=== PATIENT | female | born 1965 | race African-American/Black ===

== ENCOUNTER 2018-01-30 18:56 | Emergency (ER) | payer BC ==
[2018-01-30] MEDS ORDERED: ACETAMINOPHEN 500 MG TAB ONE (19:54)
--- NOTE | 2018-01-30 20:06 | RAD REPORT ---
EXAM DESCRIPTION: Ramsey Rush (2 Views)01/30/2018 8:00 pm CLINICAL HISTORY: Cough COMPARISON: None FINDINGS: The lungs appear clear of acute infiltrate. The heart is normal size IMPRESSION: No acute abnormalities displayed
[2018-01-30 20:21] LABS: Urine Blood NEGATIVE (NEG); Urine Glucose NEGATIVE (NEG); Urine Protein NEGATIVE (NEG); Urine pH 7.5 (5.0-7.0)
--- NOTE | 2018-01-30 20:43 | ER ---
Nurse's Notes [facility] Name: Guadalupe Chapin Age: 52 yrs Sex: Female : 1965 Arrival Date: 01/30/2018 Time: 19:00 Bed 6 Private MD: None, None Diagnosis: Fever presenting with conditions classified elsewhere;Bronchitis, not specified as acute or chronic Presentation: 01/30 19:07 Presenting complaint: Patient states: She has been being treated for bronchitis since aj1 Monday and has been taking antibiotics, then today she started to have pain all over. Patient states that she has not tried taking Tylenol or Motrin today. Reports her fever had gone away, but suddenly came back again today. Transition of care: patient was not received from another setting of care. Onset of symptoms was January 30, 2018. Risk Assessment: Do you want to hurt yourself or someone else? Patient reports no desire to harm self or others. Initial Sepsis Screen: Does the patient meet any 2 criteria? HR > 90 bpm. Does the patient have a suspected source of infection? Yes: Productive cough/pneumonia. Care prior to arrival: None. 19:07 Method Of Arrival: Ambulatory 19:07 Acuity: DEVIN 4 aj1 Triage Assessment: 19:14 General: Appears uncomfortable, Behavior is cooperative, anxious, restless. Pain: aj1 Complains of pain in all over her entire body Pain currently is 8 out of 10 on a pain scale. EENT: Reports nasal congestion nasal discharge sore throat. Neuro: Level of Consciousness is awake, alert, obeys commands. Cardiovascular: Patient's skin is warm and dry. Respiratory: Reports cough that is productive, Airway is patent Respiratory effort is even, unlabored, Respiratory pattern is regular, symmetrical. GI: Patient currently denies diarrhea, nausea, vomiting. 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 - Social history:: Smoking status: Patient/guardian denies using tobacco. - Ebola Screening: : Patient denies travel to an Ebola-affected area in the 21 days before illness onset. Screenin:52 Tuberculosis screening: No symptoms or risk factors identified. ak1 19:54 Abuse screen: Denies threats or abuse. Denies injuries from another. Nutritional ak1 screening: No deficits noted. Fall Risk None identified. Assessment: 19:54 General: Appears uncomfortable, Behavior is cooperative, crying. Pain: Complains of ak1 pain in all over body aches. Neuro: No deficits noted. Cardiovascular: No deficits noted. Respiratory: Reports cough that is Breath sounds are coarse in right posterior lower lobe Parent/caregiver reports the patient having pain with respiration pt stated she was seen by her PCP in [facility] and started Levaquin today. GI: No signs and/or symptoms were reported involving the gastrointestinal system. : No signs and/or symptoms were reported regarding the genitourinary system. EENT: No signs and/or symptoms were reported regarding the EENT system. Derm: Reports fever. Musculoskeletal: Reports all over body aches. 21:04 Reassessment: Patient appears in no apparent distress at this time. No changes from ak1 previously documented assessment. Patient is alert, oriented x 3, equal unlabored respirations, skin warm/dry/pink. Patient states symptoms have improved. Vital Signs: 19:14 BP 162 / 101; Pulse 104; Resp 20; Temp 101.2; Pulse Ox 99% on R/A; Weight 102.06 kg aj1 (R); Height 5 ft. 5 in. (165.10 cm) (R); 19:53 BP 130 / 76; Pulse 96; Resp 20; Pulse Ox 99% on R/A; ak1 21:04 BP 105 / 51; Pulse 96; Resp 18; Temp 100.9(O); Pulse Ox 97% on R/A; Pain 6/10; ak1 19:14 Body Mass Index 37.44 (102.06 kg, 165.10 cm) aj1 ED Course: 19:00 Patient arrived in ED. sb2 19:01 None, None is Private Physician. sb2 19:13 Triage completed. aj1 19:14 Arm band placed on Patient placed in waiting room, Patient notified of wait time. aj1 19:52 Hayde Jacob, RN is Primary Nurse. ak1 19:54 Mimi Murray FNP-C is PHCP. snw 19:54 Tha Duval MD is Attending Physician. snw 19:56 Patient has correct armband on for positive identification. Bed in low position. Call ak1 light in reach. Side rails up X 1. Pulse ox on. NIBP on. 19:59 Chest Pa And Lat (2 Views) XRAY In Process Unspecified. EDMS 21:04 Awaiting transportation, Awaiting: pt waiting for to come pick her up. ak1 21:04 No provider procedures requiring assistance completed. Patient did not have IV access ak1 during this emergency room visit. Administered Medications: 19:53 Drug: Tylenol 1000 mg Route: PO; ak1 21:03 Follow up: Response: No adverse reaction ak1 21:03 Drug: fentaNYL (PF) 75 mcg Route: IM; Site: right gluteus; ak1 21:04 Follow up: Response: No adverse reaction ak1 Outcome: 20:42 Discharge ordered by . snw 21:05 Condition: stable ak1 21:05 Discharge instructions given to patient, Instructed on discharge instructions, follow up and referral plans. no drinking with medication, no driving heavy equipment, medication usage, Demonstrated understanding of instructions, follow-up care, medications, Prescriptions given X 1. 22:17 Discharged to home via wheelchair, with family. ak1 22:17 Patient left the ED. ak1 Signatures: Dispatcher [employer] Karie Sandoval, RN RN aj1 Mimi Murray, POLICE CRIME SCENE TECHNICIAN-C POLICE CRIME SCENE TECHNICIAN-Csnw Hayde Jacob RN RN ak1 Yoli Gates sb2
--- NOTE | 2018-01-30 20:43 | EDPHYS ---
Physician Documentation [facility] Name: Guadalupe Chapin Age: 52 yrs Sex: Female : 1965 Arrival Date: 01/30/2018 Time: 19:00 Bed 6 Private MD: None, None ED Physician Tha Duval HPI: 01/30 21:35 This 52 yrs old Black Female presents to ER via Ambulatory with complaints of Pain All snw Over. 21:35 Onset: The symptoms/episode began/occurred suddenly. Associated signs and symptoms: snw Pertinent positives: cough, fever, pain all over. Modifying factors: The patient symptoms are alleviated by nothing, the patient symptoms are aggravated by movement. The patient has not experienced similar symptoms in the past. The patient has been recently seen by a physician: the patient's primary care provider, with different complaint(s), pt with rheumatoid and osteo arthritis. dx recently with bronchitis. Pt began Levaquin today. Pt unaware she had fever on arrival. Taking Naproxen for arthritis, began Levaquin today for bronchitis. 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 - Social history:: Smoking status: Patient/guardian denies using tobacco. - Ebola Screening: : Patient denies travel to an Ebola-affected area in the 21 days before illness onset. ROS: 21:34 Constitutional: Negative for fever, chills, and weight loss, sudden onset of severe snw bone pain. Eyes: Negative for injury, pain, redness, and discharge. 21:34 ENT: Negative for injury, pain, and discharge, Neck: Negative for injury, pain, and swelling, Cardiovascular: Negative for chest pain, palpitations, and edema. 21:34 Abdomen/GI: Negative for abdominal pain, nausea, vomiting, diarrhea, and constipation, Back: Negative for injury and pain, : Negative for injury, bleeding, discharge, and swelling, MS/Extremity: Negative for injury and deformity, Skin: Negative for injury, rash, and discoloration, Neuro: Negative for headache, weakness, numbness, tingling, and seizure. 21:34 Constitutional: Positive for body aches, malaise, poor PO intake. 21:34 Respiratory: Positive for cough, with no reported sputum. Exam: 21:32 Constitutional: This is a well developed, well nourished patient who is awake, alert, snw and in no mild distress. Fever, chills, uncomfortable Head/Face: Normocephalic, atraumatic. Eyes: Pupils equal round and reactive to light, extra-ocular motions intact. Lids and lashes normal. Conjunctiva and sclera are non-icteric and not injected. Cornea within normal limits. Periorbital areas with no swelling, redness, or edema. ENT: Nares patent. No nasal discharge, no septal abnormalities noted. Tympanic membranes are normal and external auditory canals are clear. Oropharynx with no redness, swelling, or masses, exudates, or evidence of obstruction, uvula midline. Mucous membranes moist. Neck: Trachea midline, no thyromegaly or masses palpated, and no cervical lymphadenopathy. Supple, full range of motion without nuchal rigidity, or vertebral point tenderness. No Meningismus. Chest/axilla: Normal chest wall appearance and motion. Nontender with no deformity. No lesions are appreciated. Cardiovascular: Regular rate and rhythm with a normal S1 and S2. No gallops, murmurs, or rubs. Normal PMI, no JVD. No pulse deficits. Respiratory: Lungs have equal breath sounds bilaterally, clear to auscultation and percussion. No rales, rhonchi or wheezes noted. No increased work of breathing, no retractions or nasal flaring. Abdomen/GI: Soft, non-tender, with normal bowel sounds. No distension or tympany. No guarding or rebound. No evidence of tenderness throughout. Back: No spinal tenderness. No costovertebral tenderness. Full range of motion. Skin: Warm, dry with normal turgor. Normal color with no rashes, no lesions, and no evidence of cellulitis. Neuro: Awake and alert, GCS 15, oriented to person, place, time, and situation. Cranial nerves II-XII grossly intact. Motor strength 5/5 in all extremities. Sensory grossly intact. Cerebellar exam normal. Normal gait. Psych: Awake, alert, with orientation to person, place and time. Behavior, mood, and affect are within normal limits. 21:32 Musculoskeletal/extremity: Extremities: grossly normal except: tenderness everywhere, ROM: no acute changes, Circulation is intact in all extremities. Vital Signs: 19:14 BP 162 / 101; Pulse 104; Resp 20; Temp 101.2; Pulse Ox 99% on R/A; Weight 102.06 kg aj1 (R); Height 5 ft. 5 in. (165.10 cm) (R); 19:53 BP 130 / 76; Pulse 96; Resp 20; Pulse Ox 99% on R/A; ak1 21:04 BP 105 / 51; Pulse 96; Resp 18; Temp 100.9(O); Pulse Ox 97% on R/A; Pain 6/10; ak1 19:14 Body Mass Index 37.44 (102.06 kg, 165.10 cm) aj1 MDM: 19:55 Patient medically screened. snw 21:35 Data reviewed: vital signs, nurses notes. Data interpreted: Pulse oximetry: on room air snw is 97 %. Interpretation: normal. Counseling: I had a detailed discussion with the patient and/or guardian regarding: the historical points, exam findings, and any diagnostic results supporting the discharge/admit diagnosis, radiology results, the need for outpatient follow up, to return to the emergency department if symptoms worsen or persist or if there are any questions or concerns that arise at home. Special discussion: Based on the history and exam findings, there is no indication for further emergent testing or inpatient evaluation. I discussed with the patient/guardian the need to see the primary care provider for further evaluation of the symptoms. 21:38 ED course: Pt encouraged to continue Levaquin. snw 01/30 19:54 Order name: Urine Dipstick--Ancillary (enter results); Complete Time: 20:25 rg2 01/30 19:34 Order name: Chest Pa And Lat (2 Views) XRAY; Complete Time: 20:19 snw Administered Medications: 19:53 Drug: Tylenol 1000 mg Route: PO; ak1 21:03 Follow up: Response: No adverse reaction ak1 21:03 Drug: fentaNYL (PF) 75 mcg Route: IM; Site: right gluteus; ak1 21:04 Follow up: Response: No adverse reaction ak1 Disposition: 01/30/18 20:42 Discharged to Home. Impression: Fever presenting with conditions classified elsewhere, Bronchitis, not specified as acute or chronic. - Condition is Stable. - Discharge Instructions: Acute Bronchitis, Adult, Fever, Adult, Cool Mist Vaporizer, Acute Bronchitis, [id number], Rehydration, Adult. - Prescriptions for Tessalon Perles 100 mg Oral Capsule - take 1 capsule by ORAL route every 8 hours As needed; 15 capsule. - Medication Reconciliation Form, Thank You Letter, Antibiotic Education, Prescription Opioid Use, Work release form form. - Follow up: Private Physician; When: 1 - 2 days; Reason: Recheck today's complaints, Continuance of care, Re-evaluation by your physician. Follow up: Emergency Department; When: As needed; Reason: Worsening of condition. - Problem is new. - Symptoms have worsened. Addendum: 02/06/2018 04:43 Co-signature as Attending Physician, Tha Duval MD I agree with the assessment and t w4 plan of care. Attestation: The patient's history, exam findings, diagnostics, and a summary of any interventions or procedures was reviewed in detail with Mimi GARCIA. Signatures: Dispatcher [employer] EDMS Karie Martinez RN RN aj1 Mimi Murray FNP-C FNP-CsnHayde Walters RN RN ak1 Tha Duval MD MD tw4 Corrections: (The following items were deleted from the chart) 01/30 21:35 21:32 Constitutional: This is a well developed, well nourished patient who is awake, snw alert, and in no acute distress. Head/Face: Normocephalic, atraumatic. Eyes: Pupils equal round and reactive to light, extra-ocular motions intact. Lids and lashes normal. Conjunctiva and sclera are non-icteric and not injected. Cornea within normal limits. Periorbital areas with no swelling, redness, or edema. ENT: Nares patent. No nasal discharge, no septal abnormalities noted. Tympanic membranes are normal and external auditory canals are clear. Oropharynx with no redness, swelling, or masses, exudates, or evidence of obstruction, uvula midline. Mucous membranes moist. Neck: Trachea midline, no thyromegaly or masses palpated, and no cervical lymphadenopathy. Supple, full range of motion without nuchal rigidity, or vertebral point tenderness. No Meningismus. Chest/axilla: Normal chest wall appearance and motion. Nontender with no deformity. No lesions are appreciated. Cardiovascular: Regular rate and rhythm with a normal S1 and S2. No gallops, murmurs, or rubs. Normal PMI, no JVD. No pulse deficits. Respiratory: Lungs have equal breath sounds bilaterally, clear to auscultation and percussion. No rales, rhonchi or wheezes noted. No increased work of breathing, no retractions or nasal flaring. Abdomen/GI: Soft, non-tender, with normal bowel sounds. No distension or tympany. No guarding or rebound. No evidence of tenderness throughout. Back: No spinal tenderness. No costovertebral tenderness. Full range of motion. Skin: Warm, dry with normal turgor. Normal color with no rashes, no lesions, and no evidence of cellulitis. Neuro: Awake and alert, GCS 15, oriented to person, place, time, and situation. Cranial nerves II-XII grossly intact. Motor strength 5/5 in all extremities. Sensory grossly intact. Cerebellar exam normal. Normal gait. Psych: Awake, alert, with orientation to person, place and time. Behavior, mood, and affect are within normal limits. snw 22:17 20:42 01/30/2018 20:42 Discharged to Home. Impression: Fever presenting with conditions ak1 classified elsewhere; Bronchitis, not specified as acute or chronic. Condition is Stable. Forms are Medication Reconciliation Form, Thank You Letter, Antibiotic Education, Prescription Opioid Use. Follow up: Private Physician; When: 1 - 2 days; Reason: Recheck today's complaints, Continuance of care, Re-evaluation by your physician. Follow up: Emergency Department; When: As needed; Reason: Worsening of condition. Problem is new. Symptoms have worsened. snw
[2018-01-30] MEDS ORDERED: FENTANYL CITR 100 MCG/2 ML ONE (21:01)
== END 2018-01-30 22:17 | disposition home or self-care (01) ==
LOC: ER 18:56
DX: J40 Bronchitis, not specified as acute or chronic (principal); I10 Essential (primary) hypertension
CPT/HCPCS: 71046; 81003; 96372; 99284; J3010

== ENCOUNTER 2019-04-27 09:44 | Emergency (ER) | payer BC ==
[2019-04-27] MEDS ORDERED: KETOROLAC 30 MG/ML INJ ONE (10:04)
--- NOTE | 2019-04-27 10:52 | ER ---
Nurse's Notes [facility] Name: Guadalupe Chapin Age: 54 yrs Sex: Female : 1965 Arrival Date: 04/27/2019 Time: 09:46 Bed 15 Private MD: out of town, doctor Diagnosis: Pain in right shoulder;Adhesive capsulitis of right shoulder Presentation: 04/27 09:53 Presenting complaint: Patient states: i saluted twice yesterday and my RIGHT arm hurts tw2 bad today, i just feel like i lost my range of motion, i have RA. Transition of care: patient was not received from another setting of care. Onset of symptoms was April 27, 2019. Risk Assessment: Do you want to hurt yourself or someone else? Patient reports no desire to harm self or others. Initial Sepsis Screen: Does the patient meet any 2 criteria? No. Patient's initial sepsis screen is negative. Does the patient have a suspected source of infection? No. Patient's initial sepsis screen is negative. Care prior to arrival: None. 09:53 Method Of Arrival: Ambulatory tw2 09:53 Acuity: DEVIN 4 tw2 Triage Assessment: 09:54 General: Appears in no apparent distress. obese, well groomed, Behavior is calm, tw2 cooperative, appropriate for age. Pain: Complains of pain in RIGHT shoulder. EENT: No signs and/or symptoms were reported regarding the EENT system. Neuro: Level of Consciousness is awake, alert, obeys commands, Oriented to person, place, time, situation. Cardiovascular: Patient's skin is warm and dry. Respiratory: Airway is patent Respiratory effort is even, unlabored, Respiratory pattern is regular, symmetrical. GI: No signs and/or symptoms were reported involving the gastrointestinal system. : No signs and/or symptoms were reported regarding the genitourinary system. Derm: No signs and/or symptoms reported regarding the dermatologic system. Musculoskeletal: Circulation, motion, and sensation intact. Range of motion: limited in right shoulder. Historical: - Allergies: 09:52 No Known Allergies; tw2 - Home Meds: 09:52 amlodipine oral [Active]; tw2 - PMHx: 09:52 Arthritis; Hypertension; Rheumatoid Arthritis; tw2 - Immunization history:: Adult Immunizations. - Social history:: Smoking status: . - Ebola Screening: : Patient denies travel to an Ebola-affected area in the 21 days before illness onset. - Family history:: not pertinent. Screenin:50 Abuse screen: Denies threats or abuse. Nutritional screening: No deficits noted. tw2 Tuberculosis screening: No symptoms or risk factors identified. Fall Risk None identified. Assessment: 09:52 Reassessment: provider at bedside at this time. tw2 09:59 Reassessment: see triage assessment. tw2 10:34 Reassessment: xray at bedside at this time. tw2 Vital Signs: 09:59 BP 152 / 84; Pulse 85; Resp 18; Temp 98.4(O); Pulse Ox 98% on R/A; Weight 113.4 kg (R); tw2 Pain 10/10; ED Course: 09:46 Patient arrived in ED. mr 09:46 out of town, doctor is Private Physician. mr 09:50 Bonita Lopez, RN is Primary Nurse. tw2 09:50 Baldo Tristan MD is Attending Physician. [facility] 09:51 Arm band placed on. tw2 09:51 Bed in low position. Call light in reach. tw2 09:53 Triage completed. tw2 10:52 Garry Monreal MD is Referral Physician. [facility] 10:57 Awaiting radiology results. Awaiting: prior to discharge. tw2 11:29 No provider procedures requiring assistance completed. Patient did not have IV access em during this emergency room visit. Administered Medications: 10:10 Drug: TORadol 60 mg Route: IM; Site: left deltoid; tw2 11:29 Follow up: Response: No adverse reaction; Pain is decreased em Outcome: 10:52 Discharge ordered by . raman 11:29 Discharged to home ambulatory. em 11:29 Condition: good 11:29 Discharge instructions given to patient, Instructed on discharge instructions, follow up and referral plans. medication usage, Demonstrated understanding of instructions, follow-up care, medications, Prescriptions given X 2. 11:30 Patient left the ED. em 11:39 Patient left the ED. tw2 Signatures: Baldo Tristan MD MD cha Rivera, Mary mr Blanco, Александр, PRE SALES TECHNICAL CONSULTANT PRE SALES TECHNICAL CONSULTANT em Bonita Lopez, RN RN tw2
--- NOTE | 2019-04-27 10:53 | EDPHYS ---
Physician Documentation [facility] Name: Guadalupe Chapin Age: 54 yrs Sex: Female : 1965 Arrival Date: 04/27/2019 Time: 09:46 Bed 15 Private MD: out of town, doctor ED Physician Baldo Tristan HPI: 04/27 09:56 This 54 yrs old Black Female presents to ER via Ambulatory with complaints of Arm raman Problem. 09:56 This 54 yrs old Black Female presents to ER via Ambulatory with complaints of Arm raman Problem. 09:56 The patient or guardian complains of decreased range of motion, injury, pain. The raman complaints affect the anterior aspect of right shoulder and posterior aspect of right shoulder. Context: The problem was sustained at work. Onset: The symptoms/episode began/occurred 1 day(s) ago. Treatment prior to arrival includes: no previous treatment. Modifying factors: The symptoms are alleviated by remaining still, the symptoms are aggravated by movement. Associated signs and symptoms: The patient has no apparent associated signs or symptoms. Severity of symptoms: At their worst the symptoms were mild, moderate, in the emergency department the symptoms are unchanged. Historical: - Allergies: 09:52 No Known Allergies; tw2 - Home Meds: 09:52 amlodipine oral [Active]; tw2 - PMHx: 09:52 Arthritis; Hypertension; Rheumatoid Arthritis; tw2 - Immunization history:: Adult Immunizations. - Social history:: Smoking status: . - Ebola Screening: : Patient denies travel to an Ebola-affected area in the 21 days before illness onset. - Family history:: not pertinent. ROS: 09:56 Constitutional: Negative for fever, chills, and weight loss, Eyes: Negative for injury, raman pain, redness, and discharge, ENT: Negative for injury, pain, and discharge, Neck: Negative for injury, pain, and swelling, Cardiovascular: Negative for chest pain, palpitations, and edema, Respiratory: Negative for shortness of breath, cough, wheezing, and pleuritic chest pain, Abdomen/GI: Negative for abdominal pain, nausea, vomiting, diarrhea, and constipation, Back: Negative for injury and pain, : Negative for injury, bleeding, discharge, and swelling, Skin: Negative for injury, rash, and discoloration, Neuro: Negative for headache, weakness, numbness, tingling, and seizure, Psych: Negative for depression, anxiety, suicide ideation, homicidal ideation, and hallucinations, Allergy/Immunology: Negative for hives, rash, and allergies, Endocrine: Negative for neck swelling, polydipsia, polyuria, polyphagia, and marked weight changes, Hematologic/Lymphatic: Negative for swollen nodes, abnormal bleeding, and unusual bruising. 09:56 MS/extremity: Positive for decreased range of motion, pain, swelling, of the anterior aspect of right shoulder and posterior aspect of right shoulder. Exam: 09:56 Constitutional: This is a well developed, well nourished patient who is awake, alert, raman and in no acute distress. Head/Face: Normocephalic, atraumatic. Eyes: Pupils equal round and reactive to light, extra-ocular motions intact. Lids and lashes normal. Conjunctiva and sclera are non-icteric and not injected. Cornea within normal limits. Periorbital areas with no swelling, redness, or edema. ENT: Nares patent. No nasal discharge, no septal abnormalities noted. Tympanic membranes are normal and external auditory canals are clear. Oropharynx with no redness, swelling, or masses, exudates, or evidence of obstruction, uvula midline. Mucous membranes moist. Neck: Trachea midline, no thyromegaly or masses palpated, and no cervical lymphadenopathy. Supple, full range of motion without nuchal rigidity, or vertebral point tenderness. No Meningismus. Chest/axilla: Normal chest wall appearance and motion. Nontender with no deformity. No lesions are appreciated. Cardiovascular: Regular rate and rhythm with a normal S1 and S2. No gallops, murmurs, or rubs. Normal PMI, no JVD. No pulse deficits. Respiratory: Lungs have equal breath sounds bilaterally, clear to auscultation and percussion. No rales, rhonchi or wheezes noted. No increased work of breathing, no retractions or nasal flaring. Abdomen/GI: Soft, non-tender, with normal bowel sounds. No distension or tympany. No guarding or rebound. No evidence of tenderness throughout. Back: No spinal tenderness. No costovertebral tenderness. Full range of motion. Skin: Warm, dry with normal turgor. Normal color with no rashes, no lesions, and no evidence of cellulitis. Neuro: Awake and alert, GCS 15, oriented to person, place, time, and situation. Cranial nerves II-XII grossly intact. Motor strength 5/5 in all extremities. Sensory grossly intact. Cerebellar exam normal. Normal gait. Psych: Awake, alert, with orientation to person, place and time. Behavior, mood, and affect are within normal limits. 09:56 Musculoskeletal/extremity: Extremities: noted in the right shoulder: decreased ROM, pain, DVT Exam: negative Homans' sign noted on exam, no appreciated bluish discoloration, no erythema, no increased warmth, pain, swelling, tenderness. Vital Signs: 09:59 BP 152 / 84; Pulse 85; Resp 18; Temp 98.4(O); Pulse Ox 98% on R/A; Weight 113.4 kg (R); tw2 Pain 10; MDM: 09:50 Patient medically screened. [facility] 10:00 Data reviewed: vital signs, nurses notes, radiologic studies, plain films. [facility] 04/27 10:06 Order name: Shoulder Right (2 View) XRAY [facility] 04/27 09:56 Order name: Ice pack; Complete Time: 10:00 [facility] 04/27 09:56 Order name: Sling; Complete Time: 11:29 [facility] Administered Medications: 10:10 Drug: TORadol 60 mg Route: IM; Site: left deltoid; tw2 11:29 Follow up: Response: No adverse reaction; Pain is decreased em Disposition: 04/27/19 10:52 Discharged to Home. Impression: Pain in right shoulder, Adhesive capsulitis of right shoulder. - Condition is Stable. - Discharge Instructions: Musculoskeletal Pain, Shoulder Pain, Shoulder Range of Motion Exercises, Shoulder Pain, Qmfm-gd-Kxau, Arthritis, Umlt-rp-Uiet, Adhesive Capsulitis, Joint Pain, Mxpe-mq-Lrpp. - Prescriptions for Ibuprofen 600 mg Oral Tablet - take 1 tablet by ORAL route every 8 hours As needed take with food; 21 tablet. Tylenol- Codeine #3 300-30 mg Oral Tablet - take 2 tablet by ORAL route every 6 hours As needed; 30 tablet. - Medication Reconciliation Form, Thank You Letter, Antibiotic Education, Prescription Opioid Use, Work release form form. - Follow up: Private Physician; When: 2 - 3 days; Reason: Recheck today's complaints, Continuance of care, Re-evaluation by your physician. Follow up: Garry Monreal; When: 2 - 3 days; Reason: Recheck today's complaints, Continuance of care, Re-evaluation by your physician. - Problem is new. - Symptoms have improved. Signatures: Dispatcher [employer] Baldo Hung MD MD cha Munoz, Edgar, BELL HOLE DIGGER BELL HOLE DIGGER Bonita Aragon, RN RN tw2 Corrections: (The following items were deleted from the chart) 11:30 10:52 04/27/2019 10:52 Discharged to Home. Impression: Pain in right shoulder; Adhesive em capsulitis of right shoulder. Condition is Stable. Discharge Instructions: Musculoskeletal Pain, Shoulder Pain, Shoulder Range of Motion Exercises, Shoulder Pain, Nbyy-cn-Emdt, Arthritis, Mrjb-oq-Kqib, Adhesive Capsulitis, Joint Pain, Kzzd-io-Xhvo. Prescriptions for Ibuprofen 600 mg Oral Tablet - take 1 tablet by ORAL route every 8 hours As needed take with food; 21 tablet, Tylenol-Codeine #3 300-30 mg Oral Tablet - take 2 tablet by ORAL route every 6 hours As needed; 30 tablet. and Forms are Medication Reconciliation Form, Thank You Letter, Antibiotic Education, Prescription Opioid Use. Follow up: Private Physician; When: 2 - 3 days; Reason: Recheck today's complaints, Continuance of care, Re-evaluation by your physician. Follow up: Garry Monreal; When: 2 - 3 days; Reason: Recheck today's complaints, Continuance of care, Re-evaluation by your physician. Problem is new. Symptoms have improved. [facility] 11:39 11:30 04/27/2019 10:52 Discharged to Home. Impression: Pain in right shoulder; Adhesive tw2 capsulitis of right shoulder. Condition is Stable. Discharge Instructions: Musculoskeletal Pain, Shoulder Pain, Shoulder Range of Motion Exercises, Shoulder Pain, Tbpi-hg-Eazn, Arthritis, Oivc-tz-Ohrh, Adhesive Capsulitis, Joint Pain, Ywnq-gh-Vdqh. Prescriptions for Ibuprofen 600 mg Oral Tablet - take 1 tablet by ORAL route every 8 hours As needed take with food; 21 tablet, Tylenol-Codeine #3 300-30 mg Oral Tablet - take 2 tablet by ORAL route every 6 hours As needed; 30 tablet. and Forms are Medication Reconciliation Form, Thank You Letter, Antibiotic Education, Prescription Opioid Use. Follow up: Private Physician; When: 2 - 3 days; Reason: Recheck today's complaints, Continuance of care, Re-evaluation by your physician. Follow up: Garry Monreal; When: 2 - 3 days; Reason: Recheck today's complaints, Continuance of care, Re-evaluation by your physician. Problem is new. Symptoms have improved. em
--- NOTE | 2019-04-27 11:26 | RAD REPORT ---
EXAM DESCRIPTION: Shoulder Right 2 View - 04/27/2019 10:41 am CLINICAL HISTORY: Right shoulder pain COMPARISON: None. TECHNIQUE: Internal and external rotation views of the right shoulder were obtained. FINDINGS: There is no fracture or dislocation. AC joint is normal in appearance. Calcifications are present along the superolateral aspect of the humeral head. This is an appearance typical for calcif ic tendinosis/tendinitis. This can be a source for patient pain. Acromial humeral joint space is norm al. No pathologic bone process. IMPRESSION: Right shoulder calcific tendinitis/ tendinosis with no acute bone finding.
[2019-04-27 11:35] VITALS: BP 152/84; TEMP 98.4; O2SAT 98
== END 2019-04-27 11:39 | disposition home or self-care (01) ==
LOC: ER 09:44
DX: M75.01 Adhesive capsulitis of right shoulder (principal); I10 Essential (primary) hypertension
CPT/HCPCS: 96372; 99283

== ENCOUNTER 2019-05-10 14:26 | Inpatient (IN) | payer BC ==
[2019-05-10] MEDS ORDERED: LORAZEPAM 0.5 MG TABLET ONE (14:38)
[2019-05-10] MEDS ORDERED: IBUPROFEN 400 MG TAB ONE (14:39)
[2019-05-10] MEDS ORDERED: NA CHLORIDE 0.9% 1,000 ML ONE ×3 (14:46→19:03)
[2019-05-10 14:47] LABS: Absolute Lymphocytes (CBC) 1.5 K/uL (0.7-4.9); Basophils % 0.4 % (0-1.3); Hematocrit 34.8 % (36.0-45.0); Lymphocytes % 10.2 % (15.3-44.8); MPV 8.1 fL (7.6-11.3); RBC Red Blood Cell Count 3.96 M/uL (3.86-4.86)
[2019-05-10 14:51] LABS: Protime INR 1.11
[2019-05-10 15:07] LABS: ALT/SGPT 25 U/L (12-78); AST/SGOT 19 U/L (15-37); Albumin 3.7 g/dL (3.4-5.0); Alkaline Phosphatase 77 U/L (45-117); BUN Blood Urea Nitrogen 12 mg/dL (7-18); Bicarbonate 31 mmol/L (21-32); Bilirubin Direct 0.2 mg/dL (0-0.2); Bilirubin Total 0.6 mg/dL (0.2-1.0); Glucose Level 113 mg/dL (74-106); Magnesium 2.1 mg/dL (1.8-2.4); NT PRO-BNP 128 pg/mL (<125); Potassium 3.4 mmol/L (3.5-5.1); Protein, Total 8.8 g/dL (6.4-8.2); Sodium Level 140 mmol/L (136-145); Troponin (Emerg Dept Use Only) < 0.02 ng/mL (0.0-0.045)
--- NOTE | 2019-05-10 15:42 | RAD REPORT ---
EXAM DESCRIPTION: RAD - Chest Single View - 05/10/2019 2:47 pm CLINICAL HISTORY: Chest pain COMPARISON: January 2018 TECHNIQUE: AP portable chest image was obtained 1438 hour . FINDINGS: Is lung volumes are low accentuating lung parenchymal pattern. Heart size, vasculature and lung markings are not outside of normal range for shallow inspiration. Mild interstitial edema or in filtrate can be masked in this setting. Heart size normal for shallow inspiration portable imaging. No measurable pleural effusion and no pn eumothorax. No acute bony abnormality seen. No acute aortic findings suspected. IMPRESSION: Limited shallow inspiration without peripheral mass or consolidation. Early interstitial edema and infiltrate can be masked by the shallow inspiration and portable techniq ue.
[2019-05-10] MEDS ORDERED: CEFTRIAXONE/SWI 1gm 1 GM/10 ML SYR ONE (15:56)
[2019-05-10] MEDS ORDERED: ACETAMINOPHEN 325 MG TABLET ONE (17:13)
[2019-05-10 17:30] LABS: Urine Blood NEGATIVE (NEG); Urine Glucose NEGATIVE (NEG); Urine Protein NEGATIVE (NEG); Urine Specific Gravity 1.015 (1.005-1.030)
--- NOTE | 2019-05-10 17:31 | RAD REPORT ---
EXAM DESCRIPTION: CT - Chest For Pe Angio - 05/10/2019 4:58 pm CLINICAL HISTORY: chest pain, fever COMPARISON: No comparisons TECHNIQUE: Dynamically enhanced 3 mm thick images of the chest were obtained during administration o f approximately 150mL Isovue 370 IV contrast. Coronal and oblique MIP reconstruction images were gene rated and reviewed. Exam utilizes a protocol to evaluate the pulmonary arterial tree. All CT scans are performed using dose optimization technique as appropriate and may include automated exposure control or mA/KV adjustment according to patient size. FINDINGS: No pulmonary emboli are identified. The aorta as imaged shows no acute or suspicious finding. No pericardial thickening or effusion. In the midline and anterior right mid chest there is a 3.4 x 2.2 centimeter lobulated soft tissue mas s. This is at the lung parenchyma pleura junction. Involvement of the mediastinal pleura is suspected . There is also suspected involvement of the anterior right chest parietal pleura and possibly extens ion into the chest wall. In this location, it is difficult to determine if this is a primary mediasti nal process, primary lung parenchymal process or pleural origin mass. This is not a typical low for p neumonia or benign mediastinal process. Malignant process is concerning. Elsewhere in the lung ferguson an pleura there are no additional masses or abnormal thickening. No foca l infiltrate or consolidation of the lung parenchyma. Motion accentuates interstitial markings in cou ld potentially mask interstitial edema or infiltrate. No pleural effusion or pleural thickening. No middle or posterior mediastinal mass or lymphadenopathy seen. No hilar abnormality. No chest wall masses or abnormal axillary lymphadenopathy. Symmetric breast parenchymal pattern. The axillary lymph nodes are nonspecific. Fatty infiltration of a partially imaged liver. IMPRESSION: No pulmonary emboli identified. A 3.4 x 2.2 centimeter anterior midline and right side chest mass is present. This could be lung pare nchymal, mediastinal or pleural in origin. Malignant process is suspected and there is questionable i nvolvement of the anterior chest wall. Pleural and lung ferguson are otherwise clear. No other mediastinal or hilar abnormality.
--- NOTE | 2019-05-10 18:02 | ER ---
Nurse's Notes [facility] Name: Guadalupe Chapin Age: 54 yrs Sex: Female : 1965 Arrival Date: 05/10/2019 Time: 14:27 Bed 24 Private MD: Diagnosis: Sepsis;Chest Pain;Mediastinal Mass Presentation: 05/10 14:33 Transition of care: patient was not received from another setting of care. Care prior ss to arrival: None. 14:33 Method Of Arrival: Wheelchair ss 14:33 Presenting complaint: Patient states: chest pain that began yesterday, fever began this ss morning. Patient reports she has been ill with a dry cough x 5 days. Onset of symptoms is unknown. Risk Assessment: Do you want to hurt yourself or someone else? Patient reports no desire to harm self or others. Initial Sepsis Screen: Does the patient meet any 2 criteria? Temp <36.0*C (96.8*F)) or > 38.3*C (100.9*F). HR > 90 bpm. Does the patient have a suspected source of infection? No. Patient's initial sepsis screen is negative. 14:33 Acuity: DEVIN 3 ss Historical: - Allergies: 14:33 No Known Allergies; ss - PMHx: 14:33 Arthritis; Hypertension; Rheumatoid Arthritis; ss - Immunization history:: Adult Immunizations up to date. - Social history:: Smoking status: Patient/guardian denies using tobacco. - Ebola Screening: : Patient denies exposure to infectious person Patient denies travel to an Ebola-affected area in the 21 days before illness onset. Screenin:30 Abuse screen: Denies threats or abuse. Nutritional screening: No deficits noted. tr5 Tuberculosis screening: No symptoms or risk factors identified. Fall Risk None identified. Assessment: 14:30 General: Appears distressed, uncomfortable, Behavior is cooperative, crying. Pain: tr5 Complains of pain in chest Pain does not radiate. Pain currently is 10 out of 10 on a pain scale. Quality of pain is described as aching, Pain began 1 hour ago. Neuro: Level of Consciousness is awake, alert, obeys commands, Oriented to person, place, time, Slip Laster are equal bilaterally Moves all extremities. Cardiovascular: Heart tones present Capillary refill < 3 seconds Pulses are all present. Edema is absent. Respiratory: Airway is patent Respiratory effort is even, unlabored, Respiratory pattern is regular, symmetrical. GI: No signs and/or symptoms were reported involving the gastrointestinal system. : No signs and/or symptoms were reported regarding the genitourinary system. EENT: No signs and/or symptoms were reported regarding the EENT system. Derm: No signs and/or symptoms reported regarding the dermatologic system. 14:35 Reassessment:. ss 16:00 Reassessment: Patient appears in no apparent distress at this time. Patient and/or tr5 family updated on plan of care and expected duration. Pain level reassessed. Patient is alert, oriented x 3, equal unlabored respirations, skin warm/dry/pink. Vital Signs: 14:35 BP 156 / 92; Pulse 96; Resp 19; Pulse Ox 96% on R/A; tr5 14:35 Temp 101.3; Weight 111.13 kg; Height 5 ft. 5 in. (165.10 cm); ss 15:34 Temp 102.8(O); jp3 15:40 Pulse 104; Resp 30; Pulse Ox 94% on R/A; jp3 15:49 Pulse Ox 97% on 2 lpm NC; jp3 16:00 Temp 101.1(O); tr5 17:11 BP 135 / 60 LA (auto/lg); Pulse 99; Resp 13 S; Temp 102.1(O); Pulse Ox 98% on 2 lpm NC; jp3 18:20 Pulse 94; Resp 20 S; Temp 100.3(O); Pulse Ox 96% on 2 lpm NC; jp3 19:00 Temp 99.5(O); tr5 14:35 Body Mass Index 40.77 (111.13 kg, 165.10 cm) ss ED Course: 14:27 Patient arrived in ED. mr 14:28 Elieser Luevano PA is PHCP. m 14:28 Param Rouse MD is Attending Physician. m 14:30 EKG done, by ED staff, reviewed by Elieser HODGES. ss 14:32 Emeka Massey, SAY is Primary Nurse. tr5 14:33 Arm band placed on. ss 14:34 Patient has correct armband on for positive identification. Placed in gown. Bed in low ss position. Adult w/ patient. desk monitor on. Pulse ox on. NIBP on. 14:40 Inserted saline lock: 20 gauge in right antecubital area, using aseptic technique. ss Blood collected. Patient maintains SpO2 saturation greater than 95% on room air. 14:40 Initial lab(s) drawn, by me, sent to lab. Flu and/or RSV swab sent to lab. Strep swab jp3 sent to lab. X-ray(s) taken. 14:44 Triage completed. ss 14:47 XRAY Chest (1 view) In Process Unspecified. EDMS 14:49 Call light in reach. Side rails up X 1. Side rails up X2. Pillow given. Verbal jp3 reassurance given. 15:32 Throat Culture Sent. jp3 15:37 Notified Nurse Practitioner and/or Physician Superintendent Stations of vital signs. jp3 15:50 Oxygen administration via nasal cannula \T\ 2L/min Response to oxygen therapy: symptoms jp3 improved. 16:06 First set of blood cultures drawn RAC by Marissa Montoya. jp3 16:10 Urine collected: clean catch specimen, clear, ree colored. jp3 16:19 Urine Dipstick--Ancillary (enter results) Sent. jp3 16:20 Lactate Sent. jp3 16:20 Procalcitonin Sent. jp3 16:56 Inserted saline lock: 22 gauge in left antecubital area, using aseptic technique. ss ,using aseptic technique. CT requesting additional IV as contrast will not flow freely through initial IV. Initial IV flushes well and has blood return. Pt verbalizes understanding importance of placing an additional IV for completion of exams Blood collected. 16:56 Second set of blood cultures drawn. ss 16:58 CT Chest For PE Angio In Process Unspecified. EDMS 17:12 Notified Nurse Practitioner and/or Physician Superintendent Stations of vital signs. jp3 17:59 Dwight Nguyen DO is Hospitalizing Provider. jmm 20:20 No provider procedures requiring assistance completed. Patient admitted, IV remains in tr5 place. Administered Medications: 14:43 Drug: Ibuprofen 800 mg Route: PO; tr5 15:24 Follow up: Response: Marked relief of symptoms tr5 14:44 CANCELLED (Physician Discretion): Ativan 0.5 mg IVP once tr5 14:44 Drug: Ativan 0.5 mg Route: PO; tr5 15:24 Follow up: Response: Anxiety decreased tr5 14:51 Drug: NS 0.9% 1000 ml Route: IV; Rate: 1 bolus; Site: right antecubital; tr5 15:23 CANCELLED (not needed): Fleet Enema 133 ml OH once jmm 17:16 Drug: Rocephin 1 grams Route: IV; Rate: calculated rate; Site: right antecubital; tr5 18:35 Follow up: IV Status: Completed infusion tr5 17:16 Drug: Tylenol 650 mg Route: PO; tr5 18:35 Drug: NS 0.9% 1000 ml Route: IV; Rate: 1 bolus; Site: right antecubital; tr5 18:35 Drug: LevaQUIN 750 mg Volume: 150 ml; Route: IVPB; Infused Over: 90 mins; Site: right tr5 antecubital; 18:36 Drug: NS 0.9% (30 ml/kg) 30 ml/kg Route: IV; Rate: bolus; Site: left antecubital; tr5 Outcome: 18:01 Decision to Hospitalize by Provider. omid 20:20 Admitted to Med/surg accompanied by tech, via stretcher, with oxygen, Report called to tr5 Naomi DEAL 20:20 Condition: stable 20:20 Instructed on the need for admit. 20:25 Patient left the ED. tr5 Signatures: Dispatcher [employer] EDMS Elieser Luevano PA PA jmm GravesTamara mr Nancy Myers, Norm Mccord RN, Tommie, RN RN tr5 Corrections: (The following items were deleted from the chart) 16:18 14:40 Initial lab(s) drawn, by ne, sent to lab. Flu and/or RSV swab sent to lab. Strep jp3 swab sent to lab. jp3
--- NOTE | 2019-05-10 18:02 | EDPHYS ---
Physician Documentation [facility] Name: Guadalupe Chapin Age: 54 yrs Sex: Female : 1965 Arrival Date: 05/10/2019 Time: 14:27 Bed 24 Private MD: ED Physician Param Rouse HPI: 05/10 14:29 This 54 yrs old Black Female presents to ER via Wheelchair with complaints of Chest [facility] Pain. 14:29 The patient or guardian reports chest pain that is located primarily in the substernal [facility] area. Onset: today. The pain does not radiate. Associated signs and symptoms: Pertinent positives: cough, shortness of breath. The chest pain is described as aching, sharp. This is a 54 year old female with a history of RA, HTN that presents to the ED with complaints of chest pain beginning last night which waxes and wanes. Patient states having sore throat, congestion, ear pain beginning this Monday. Denies vomiting, abdominal pain, or diarrhea. . Historical: - Allergies: 14:33 No Known Allergies; ss - PMHx: 14:33 Arthritis; Hypertension; Rheumatoid Arthritis; ss - Immunization history:: Adult Immunizations up to date. - Social history:: Smoking status: Patient/guardian denies using tobacco. - Ebola Screening: : Patient denies exposure to infectious person Patient denies travel to an Ebola-affected area in the 21 days before illness onset. ROS: 14:29 Constitutional: Positive for body aches, fever. jm 14:29 ENT: Positive for ear pain, sore throat. 14:29 Cardiovascular: Positive for chest pain. 14:29 Respiratory: Positive for cough. 14:29 All other systems are negative. Exam: 14:29 Head/Face: atraumatic. Eyes: EOMI, no conjunctival erythema appreciated jm 14:29 ENT: Moist Mucus Membranes 14:29 Constitutional: The patient appears alert, awake, anxious. 14:29 Neck: C-spine: appears grossly normal, ROM/movement: is normal. 14:29 Chest/axilla: Inspection: normal, Palpation: is normal. 14:29 Cardiovascular: Rate: tachycardic, Rhythm: regular, Pulses: no pulse deficits are appreciated. 14:29 Respiratory: the patient does not display signs of respiratory distress, Respirations: normal, Breath sounds: are clear throughout. 14:29 Abdomen/GI: Inspection: abdomen appears normal, Bowel sounds: normal, Palpation: abdomen is soft and non-tender, in all quadrants. 14:29 Musculoskeletal/extremity: ROM: intact in all extremities. 14:29 Skin: Appearance: Color: normal in color. 14:29 Neuro: Orientation: is normal, Mentation: is normal, Memory: is normal. 14:29 Psych: Behavior/mood is pleasant, cooperative. Vital Signs: 14:35 BP 156 / 92; Pulse 96; Resp 19; Pulse Ox 96% on R/A; tr5 14:35 Temp 101.3; Weight 111.13 kg; Height 5 ft. 5 in. (165.10 cm); ss 15:34 Temp 102.8(O); jp3 15:40 Pulse 104; Resp 30; Pulse Ox 94% on R/A; jp3 15:49 Pulse Ox 97% on 2 lpm NC; jp3 16:00 Temp 101.1(O); tr5 17:11 BP 135 / 60 LA (auto/lg); Pulse 99; Resp 13 S; Temp 102.1(O); Pulse Ox 98% on 2 lpm NC; jp3 18:20 Pulse 94; Resp 20 S; Temp 100.3(O); Pulse Ox 96% on 2 lpm NC; jp3 19:00 Temp 99.5(O); tr5 14:35 Body Mass Index 40.77 (111.13 kg, 165.10 cm) ss MDM: 14:32 Patient medically screened. [facility] 17:53 Data reviewed: vital signs, nurses notes. Counseling: I had a detailed discussion with [facility] the patient and/or guardian regarding: the historical points, exam findings, and any diagnostic results supporting the discharge/admit diagnosis, lab results, radiology results, the need for further work-up and treatment in the hospital. ED course: I discussed the patient with Donna Taiwo whom accepted admission for Dr. Nguyen. 05/10 14:29 Order name: Basic Metabolic Panel; Complete Time: 15:21 [facility] 05/10 14:29 Order name: CBC with Diff; Complete Time: 14:49 [facility] 05/10 14:29 Order name: LFT's; Complete Time: 15:21 [facility] 05/10 14:29 Order name: Magnesium; Complete Time: 15:21 [facility] 05/10 14:29 Order name: NT PRO-BNP; Complete Time: 15:21 [facility] 05/10 14:29 Order name: PT-INR; Complete Time: 14:59 [facility] 05/10 14:29 Order name: Troponin (emerg Dept Use Only); Complete Time: 15:21 [facility] 05/10 14:37 Order name: Flu; Complete Time: 15:21 [facility] 05/10 14:37 Order name: Strep; Complete Time: 15:10 [facility] 05/10 14:47 Order name: Glucose, Ancillary Testing; Complete Time: 14:49 [facility] 05/10 15:12 Order name: Throat Culture [facility] 05/10 15:49 Order name: Lactate; Complete Time: 16:56 [facility] 05/10 15:49 Order name: Procalcitonin; Complete Time: 17:05 [facility] 05/10 15:49 Order name: Blood Culture Adult (2) [facility] 05/10 14:29 Order name: XRAY Chest (1 view); Complete Time: 15:46 [facility] 05/10 14:29 Order name: EKG; Complete Time: 14:30 [facility] 05/10 14:29 Order name: Cardiac monitoring; Complete Time: 14:32 [facility] 05/10 15:46 Order name: CT Chest For PE Angio; Complete Time: 17:36 [facility] 05/10 16:18 Order name: Urine Dipstick--Ancillary (enter results); Complete Time: 17:36 tn 05/10 18:24 Order name: CONS Physician Consult [facility] 05/10 14:29 Order name: EKG - Nurse/Tech; Complete Time: 14:32 [facility] 05/10 14:29 Order name: IV Saline Lock; Complete Time: 14:34 [facility] 05/10 14:29 Order name: Labs collected and sent; Complete Time: 14:34 [facility] 05/10 14:29 Order name: O2 Per Protocol; Complete Time: 14:32 [facility] 05/10 14:29 Order name: O2 Sat Monitoring; Complete Time: 14:32 [facility] 05/10 15:22 Order name: Urine Dipstick-Ancillary (obtain specimen); Complete Time: 16:19 [facility] Administered Medications: 14:43 Drug: Ibuprofen 800 mg Route: PO; tr5 15:24 Follow up: Response: Marked relief of symptoms tr5 14:44 CANCELLED (Physician Discretion): Ativan 0.5 mg IVP once tr5 14:44 Drug: Ativan 0.5 mg Route: PO; tr5 15:24 Follow up: Response: Anxiety decreased tr5 14:51 Drug: NS 0.9% 1000 ml Route: IV; Rate: 1 bolus; Site: right antecubital; tr5 15:23 CANCELLED (not needed): Fleet Enema 133 ml PA once jmm 17:16 Drug: Rocephin 1 grams Route: IV; Rate: calculated rate; Site: right antecubital; tr5 18:35 Follow up: IV Status: Completed infusion tr5 17:16 Drug: Tylenol 650 mg Route: PO; tr5 18:35 Drug: NS 0.9% 1000 ml Route: IV; Rate: 1 bolus; Site: right antecubital; tr5 18:35 Drug: LevaQUIN 750 mg Volume: 150 ml; Route: IVPB; Infused Over: 90 mins; Site: right tr5 antecubital; 18:36 Drug: NS 0.9% (30 ml/kg) 30 ml/kg Route: IV; Rate: bolus; Site: left antecubital; tr5 Disposition: 05/11 07:25 Co-signature as Attending Physician, Param Rouse MD I agree with the assessment and kdr plan of care. Disposition: 05/10/19 18:01 Hospitalization ordered by Dwight Nguyen for Inpatient Admission. Preliminary diagnosis are Sepsis, Chest Pain, Mediastinal Mass. - Bed requested for Telemetry/MedSurg (observation). - Status is Inpatient Admission. tr5 - Condition is Stable. - Problem is new. - Symptoms have improved. UTI on Admission? No Signatures: Dispatcher [employer] Litzy Dexter RN RN dw Rittger, Kevin, MD MD kdr Mickail, Joel, PA PA jmm Smirch, Shelby, RN RN ss Roszak, Josh, PA PA jr8 Rodriguez, Tommie, RN RN tr5 Corrections: (The following items were deleted from the chart) 05/10 14:44 14:37 Ativan 0.5 mg IVP once ordered. [facility] tr5 15:23 15:23 Fleet Enema 133 ml PA once ordered. [facility] 18:53 18:01 Hospitalization Ordered by Dwight Nguyen DO for Inpatient Admission. Preliminary dw diagnosis is Sepsis; Chest Pain; Mediastinal Mass. Bed requested for Telemetry/MedSurg (observation). Status is Inpatient Admission. Condition is Stable. Problem is new. Symptoms have improved. UTI on Admission? No. carlosm 20:25 18:53 05/10/2019 18:01 Hospitalization Ordered by Dwight Nguyen DO for Inpatient tr5 Admission. Preliminary diagnosis is Sepsis; Chest Pain; Mediastinal Mass. Bed requested for Telemetry/MedSurg (observation). Status is Inpatient Admission. Condition is Stable. Problem is new. Symptoms have improved. UTI on Admission? No. dw
[2019-05-10] MEDS ORDERED: Levofloxacin 750mg IV 750 MG/150 ML BAG IV ONE (18:25)
--- NOTE | 2019-05-10 18:30 | P.HP ---
Certification for Inpatient Patient admitted to: Inpatient With expected LOS: >2 Midnights Patient will require the following post-hospital care: None Practitioner: I am a practitioner with admitting privileges, knowledge of patient current condition, hospital course, and medical plan of care. Services: Services provided to patient in accordance with Admission requirements found in Title 42 Section 412.3 of the Code of Federal Regulations <Nikko Coronado - Last Filed: 05/10/19 18:24> Patient History Date of Service: 05/10/19 Primary Care Provider: OOT provider Reason for admission: Sepsis, Pneumonia, Pulmonary mass History of Present Illness: Patient presented to ED today for continuation of fever with chest pain. Stated that about 2 weeks ago started with joint aching which she contributed to as her RA flaring up. Stated that for the past week has had intermittent fevers. Today with prolonged fever, fatigue, and now chest pain. Dry cough on/off as well. ED consulted us for admission after finding pulmonary mass with possible underlying pneumonia and sepsis Home medications list reviewed: Yes - Past Medical/Surgical History Has patient received pneumonia vaccine in the past: No Diabetic: No -: HTN -: RA -: Schogrens Past Surgical History: Reviewed- Non-Contributory - Family History Family History: Reviewed- Non-Contributory - Social History Smoking Status: Former smoker Smoking therapy provided: No Alcohol use: Yes CD- Drugs: No Place of Residence: Home <Nikko Coronado - Last Filed: 05/10/19 18:24> Date of Service: 05/10/19 - Past Medical/Surgical History -: Sjogrens Psychosocial/ Personal History: patient lives at home. She is - Family History Family History: Reviewed- Non-Contributory <Dwight Nguyen - Last Filed: 05/10/19 20:22> Allergies No Known Allergies Allergy (Unverified 01/30/18 22:21) Review of Systems General: Fever, Weakness, Malaise Eyes: Unremarkable ENT: Unremarkable Respiratory: Cough, Dry Cardiovascular: Chest Pain Gastrointestinal: Unremarkable Musculoskeletal: Unremarkable Integumentary: Unremarkable Neurological: Unremarkable Lymphatics: Unremarkable <Nikko Coronado - Last Filed: 05/10/19 18:24> Physical Examination - Vital Signs Temperature: 102.1 F Blood Pressure: 135/60 Pulse: 100 Respirations: 20 Pulse Ox (%): 96 (NC 2 L) - Physical Exam General: Alert, In no apparent distress, Oriented x3 HEENT: Normocephalic, PERRLA, Mucous membr. moist/pink, EOMI Neck: Supple, 2+ carotid pulse no bruit, JVD not distended, No Thyromegaly Respiratory: Expiratory wheezes (Right anterior and posterior lung ferguson ) Cardiovascular: No edema, Normal pulses, Regular rate/rhythm, Normal S1 S2, No gallops, No rubs, No murmurs Capillary refill: <2 Seconds Gastrointestinal: Normal bowel sounds, Soft and benign, Non-distended, No ascites, No tenderness, No masses Musculoskeletal: No clubbing, No swelling, No contractures, No erythema, No tenderness, No warmth Integumentary: No rashes, No breakdown, No significant lesion, No tenderness/ swelling, No erythema, No warmth, No cyanosis Neurological: Normal gait, Normal speech, Normal strength at 5/5 x4 extr, Normal tone, Sensation intact, Cranial nerves 3-12 intact, Normal reflexes 2+, Normal affect Lymphatics: No axilla or inguinal lymphadenopathy - Studies Laboratory Data (last 24 hrs) 05/10/19 14:36: PT 13.1 H, INR 1.11 05/10/19 14:36: WBC 14.8 H, Hgb 11.7 L, Hct 34.8 L, Plt Count 259 05/10/19 14:36: Sodium 140, Potassium 3.4 L, BUN 12, Creatinine 0.98, Glucose 113 H, Magnesium 2.1, Total Bilirubin 0.6, AST 19, ALT 25, Alkaline Phosphatase 77 Microbiology Data (last 24 hrs): 05/10/19 14:45 Nasopharnyx Influenza Type A Antigen Screen - Final 05/10/19 14:45 Nasopharnyx Influenza Type B Antigen Screen - Final 05/10/19 14:45 Throat Group A Streptococcus Rapid Screen - Final <Nikko Coronado - Last Filed: 05/10/19 18:24> - Studies Laboratory Data (last 24 hrs) 05/10/19 14:36: PT 13.1 H, INR 1.11 05/10/19 14:36: WBC 14.8 H, Hgb 11.7 L, Hct 34.8 L, Plt Count 259 05/10/19 14:36: Sodium 140, Potassium 3.4 L, BUN 12, Creatinine 0.98, Glucose 113 H, Magnesium 2.1, Total Bilirubin 0.6, AST 19, ALT 25, Alkaline Phosphatase 77 Microbiology Data (last 24 hrs): 05/10/19 14:45 Nasopharnyx Influenza Type A Antigen Screen - Final 05/10/19 14:45 Nasopharnyx Influenza Type B Antigen Screen - Final 05/10/19 14:45 Throat Group A Streptococcus Rapid Screen - Final <Dwight Nguyen - Last Filed: 05/10/19 20:22> Assessment and Plan - Problems (Diagnosis) (1) Hypertension Current Visit: Yes Status: Chronic Qualifiers: Hypertension type: essential hypertension Qualified Code(s): I10 - Essential (primary) hypertension (2) Sepsis Current Visit: Yes Status: Acute Qualifiers: Sepsis type: sepsis due to unspecified organism Sepsis acute organ dysfunction status: without acute organ dysfunction Qualified Code(s): A41.9 - Sepsis, unspecified organism (3) Pulmonary mass Current Visit: Yes Status: Acute (4) Pneumonia Current Visit: Yes Status: Acute Qualifiers: Pneumonia type: due to unspecified organism Laterality: right Lung location: unspecified part of lung Qualified Code(s): J18.9 - Pneumonia, unspecified organism (5) Rheumatoid arthritis Current Visit: Yes Status: Chronic - Plan Patient will be admitted for pneumonia, sepsis, and pulmonary mass. Patient started on antibiotics and was given 30ml/kg of fluids. Pending blood cultures. Dr. Bennett consulted for pulmonary mass. Will determine if patient will undergo bronchoscopy. Will monitor vitals and blood work. Will continue breathing treatments. Discharge Plan: Home Plan to discharge in: Greater than 2 days - Advance Directives Does patient have a Living Will: No Does patient have a Durable POA for Healthcare: No - Code Status/Comfort Care Code Status Assessed: Yes Code Status: Full Code Critical Care: No Time Spent Managing Pts Care (In Minutes): 40 <Nikko Coronado - Last Filed: 05/10/19 18:24> - Plan Cased discussed and reviewed with Dante Coronado NP. Will continue with Sepsis protocol. IV antibiotics obtained. Will consult Dr. Bennett in the am. Await recommendation. Spoke to Dr. Golden-Diagrammer And Seamer who will follow up on patient within 6 hours. <Dwight Nguyen - Last Filed: 05/10/19 20:22>
[2019-05-10] MEDS ORDERED: ONDANSETRON 4 MG/2 ML VIAL IV PRN (20:41)
[2019-05-10] MEDS ORDERED: ALBUTEROL 2.5 MG/3 ML NEB SOL NEB PRN (20:41)
[2019-05-10] MEDS ORDERED: MORPHINE 4 MG/ML SYR IV PRN (20:41)
[2019-05-10] MEDS ORDERED: IPRATROPIUM BROM 0.5MG/2.5ML NEB PRN (20:41)
[2019-05-10 20:46] VITALS: BMI 40.3
[2019-05-10] MEDS: NA CHLORIDE 0.9% 1,000 ML IV SCH (21:23)
[2019-05-10] MEDS ORDERED: PIPERACIL/TAZO 3.375 GM VIAL IV ONE (21:35)
[2019-05-10] MEDS: NA CHLORIDE 0.9% 100 ML ONE ×2 (21:36→21:41)
[2019-05-10] MEDS ORDERED: PIPER/TAZO/NS 3.375gm 3.375 GM/100 ML BAG IVPB SCH (22:00)
[2019-05-10] MEDS ORDERED: DIPHENHYDRAMINE 50 MG/ML VIAL IV ONE (23:19)
[2019-05-10] MEDS ORDERED: HYDROCORTISONE SUC 100 MG INJ IV ONE (23:36)
[2019-05-11] MEDS: METHYLPREDNISOLONE 40 MG INJ IV SCH ×2 (00:54→07:53)
[2019-05-11] MEDS ORDERED: PIPER/TAZO/NS 3.375gm 3.375 GM/100 ML BAG IVPB SCH (05:00)
[2019-05-11 05:17] LABS: Absolute Lymphocytes (CBC) 0.8 K/uL (0.7-4.9); Basophils % 0.1 % (0-1.3); Hematocrit 35.6 % (36.0-45.0); Lymphocytes % 5.1 % (15.3-44.8); MPV 8.7 fL (7.6-11.3); RBC Red Blood Cell Count 3.99 M/uL (3.86-4.86)
[2019-05-11 05:34] LABS: Potassium 3.1 mmol/L (3.5-5.1)
--- NOTE | 2019-05-11 07:03 | P.INFCA ---
Sepsis Focused Assessment - Focused Assessment Complete? Sepsis Focused Assessment Completed?: Yes - Sepsis Screen Result Severe Sepsis: Negative Septic Shock: Negative - Evaluation Current stage of sepsis: Ruled out Reason for ruling out sepsis: Procalcitonin & lactate is negative - Vital Signs Reviewed: Yes Temperature: 98.3 F Heart rate: 79 Blood Pressure: 100/62 Respiratory Rate: 18 O2 Sat by Pulse Oximetry: 100 - Examination Date exam was performed: 05/11/19 Time exam was performed: 00:25 Heart: Regular rate/rhythm Lungs: Diminished air movement Peripheral pulses: 3+ Normal Peripheral pulse location: Radial Capillary refill: <2 Seconds Skin examination: Normal turgor Date of Service: 05/11/19 Patient seen and examined. The last medicine she got prior to her lip swelling was Zosyn. This is been turned discontinued. Will continue Levaquin. Patient also restarted on blood pressure medication. In light of the fact that her blood pressure has been running on the low side we will discontinue then Norvasc and the hydrochlorothiazide. Continue on nebs and IV steroids. Patient will need to see Pulmonary for possible bronchoscopy. Patient procalcitonin and lactate were negative. Continue close monitoring patient at this time pending further workup. Echocardiogram may also be needed to measure right heart pressures.
[2019-05-11 07:28] LABS: Blood Morphology Comment NOT SEEN (NOT SEEN); Platelet Estimate ADEQ; Urine White Blood Cell Casts OK
[2019-05-11] MEDS: ACETAMINOPHEN 500 MG TAB PO PRN ×2 (08:03→22:45)
[2019-05-11] MEDS ORDERED: hydroCHLOROthiazide 25 MG TAB PO SCH (09:00)
[2019-05-11] MEDS ORDERED: AMLODIPINE 5 MG TAB PO SCH (09:00)
[2019-05-11] MEDS: NA CHLORIDE 0.9% 1,000 ML IV SCH (10:02)
--- NOTE | 2019-05-11 11:20 | P.CNS ---
Date of Consult: 05/11/19 Primary Care Provider: JUICE provider Chief Complaint: Sepsis, Pneumonia, Pulmonary mass History of Present Illness: The patient is 54 years of age with a history of rheumatoid arthritis admitted with sudden onset duration 2 days of anterior chest wall pain right to the past done am in addition to some high fever. Patient does not currently smoke no history of malignancy she was found to have a anterior mediastinal mass abutting the chest wall elevated white count suggestive of a pneumonia the recently had a flu and a tetanus shot patient had a high fever on admission Allergies piperacillin [From Zosyn] Allergy (Verified 05/11/19 01:16) Anaphylaxis tazobactam [From Zosyn] Allergy (Verified 05/11/19 01:16) Anaphylaxis Home Medications: Amlodipine [Norvasc*] 1 tab PO DAILY 05/10/19 Codeine/APAP [Tylenol #3*] 2 tab PO Q6H PRN 05/10/19 Ibuprofen 1 tab PO DAILY PRN 05/10/19 Tramadol HCl [Ultram] 1 tab PO Q6H PRN 05/10/19 hydroCHLOROthiazide [Hydrochlorothiazide] 1 tab PO DAILY 05/10/19 - Past Medical/Surgical History Diabetic: No -: Rheumatoid Arthritis -: OsteoArthritis -: Sjogrens -: HTN -: Umbilical Hernia Repair Psychosocial/ Personal History: patient lives at home. She is - Family History Mother Medical History: Diabetes - Social History Alcohol use: Yes CD- Drugs: No Caffeine use: Yes Place of Residence: Home Review of Systems General: Fever, Weakness Respiratory: Pleuritic Pain Musculoskeletal: Other (Joint pains from arthritis) Physical Examination Temp Pulse Resp BP Pulse Ox 97.2 F 82 18 113/60 98 05/11/19 08:00 05/11/19 08:00 05/11/19 08:00 05/11/19 08:00 05/11/19 08:00 General: Alert, Oriented x3 Respiratory: Clear to auscultation bilaterally, Friction rub Cardiovascular: Normal pulses, Normal S1 S2 Gastrointestinal: Normal bowel sounds, Soft and benign Laboratory Data (last 24 hrs) 05/10/19 14:36: PT 13.1 H, INR 1.11 05/10/19 14:36: WBC 14.8 H, Hgb 11.7 L, Hct 34.8 L, Plt Count 259 05/10/19 14:36: Sodium 140, Potassium 3.4 L, BUN 12, Creatinine 0.98, Glucose 113 H, Magnesium 2.1, Total Bilirubin 0.6, AST 19, ALT 25, Alkaline Phosphatase 77 - Problems (1) Pneumonia Current Visit: Yes Status: Acute Plan: Patient is 54 years of age admitted with acute onset of fever chest pain anterior mediastinal mass most likely it is a pneumonia patient's vital signs are all stable he can be done exchange operator to p.o. levofloxacin discharge tomorrow follow up with me in 2 weeks with a pre clinical chest x-ray vital signs stable patient is aware that she has this anterior mediastinal mass and needs a follow up to make shore that it is cleared high fever admission Qualifiers: Pneumonia type: due to unspecified organism Laterality: right Lung location: unspecified part of lung Qualified Code(s): J18.9 - Pneumonia, unspecified organism
[2019-05-11] MEDS: KCL 20 MEQ/100 mL IVPB 20 MEQ/100 ML BAG IV SCH ×2 (11:54→14:22)
--- NOTE | 2019-05-11 14:22 | EKG ---
Test Date: 2019-05-10 Test Time: 14:30:29 Bottom Turning Lathe Turner: MAGY MEASUREMENT RESULTS: Intervals: Rate: 99 NV: 158 QRSD: 74 QT: 330 QTc: 423 [place]: P: 83 NV: 158 QRS: 79 T: 74 INTERPRETIVE STATEMENTS: Normal sinus rhythm Normal ECG No previous ECG available for comparison Electronically Signed On 05-11-19 14:19:24 PERSHING MISSILE CREWMEMBER by Pineda Bustillos
[2019-05-11] MEDS ORDERED: ENOXAPARIN 40 MG/0.4 ML SQ SCH (17:00)
[2019-05-11] MEDS ORDERED: Levofloxacin500mg IV 500 MG/100 ML BAG IV SCH (18:00)
--- NOTE | 2019-05-11 18:00 | PN ---
Subjective: Currently, patient lying in bed. She looks comfortable. Her shortness of breath is slightly improved, but she is still on oxygen. She has no chest pain. No abdominal pain. She feels still weak and she much rather stay 1 more night in the hospital. Objective: Vital Signs: Currently, vital signs, blood pressure is 113/65, respiratory rate 18, pulse 72, temperature 97.2. General: She is alert and oriented x3. Does not look in any distress. HEENT: Atraumatic, normocephalic. PERRLA. Oral mucosa is moist. Neck: Supple. No JVD. No carotid bruits. Chest: Clear to auscultation with decrease BS at the bases, There is no expiratory wheezing. Heart: Regular rate and rhythm. S1, S2 normal. No gallop or murmur. Abdomen: Soft, nontender. No masses. No hepatosplenomegaly. Positive bowel sounds. Extremities: No clubbing, cyanosis, or edema. No calf tenderness noted. Neurologic: Grossly intact. Cranial exam 2 through 12 intact. Normal sensation. Normal reflexes. Normal muscle strength. Laboratory Data: Showed CBC normal except for white blood cells continued to go up to 23, hemoglobin 8.7, platelet of 226. Chemistry within normal except for potassium 3.1, sodium 142, GFR of 89, glucose 119, calcium 8.3. BNP of 644. Assessment And Plan: 1. Pneumonia. Continue IV antibiotic. Dr. Bennett will be seeing the patient, suggested to continue antibiotic with Levaquin for 10 days after discharge. she will need to follow up with Pul for furhter workup to further workup for her lung mass as outpatient. 2. Lung mass. We discussed with patient the possibility of malignancy as well as pneumonia, so we will need to repeat imaging again in 2 weeks after pneumonia resolved and decide if biopsy could be done. Dr. Bennett stated he would do that in his office in 1 week when he follow her up. 3. Hypertension, well controlled. Her blood pressure was slightly low yesterday, but she is not dizzy. We will observe for now. 4. Sepsis, better. Patient's vital signs stable. White blood cell going up due to the steroid. 5. Hypokalemia, severe. We will replace with IV . 6. We will obtain physical therapy for discharge planning. 7. History of rheumatoid arthritis. She will follow up with her intervention teacher as outpatient. 8. Deep vein thrombosis prophylaxis, on Lovenox, continue. SARAH/JANNET Voice ID: [id number] Report ID: [id number] MTDD
[2019-05-12] MEDS: ACETAMINOPHEN 500 MG TAB PO PRN (08:40)
[2019-05-12] MEDS ORDERED: POTASSIUM CL SA 10 MEQ TAB PO ONE (09:00)
[2019-05-12 10:08] VITALS: O2SAT 97
--- NOTE | 2019-05-13 08:50 | DS ---
Date of Discharge: 05/12/2019 Discharge Diagnoses: 1.Pneumonia. 2.Lung mass. 3.Hypertension. 4.Hypokalemia, resolved. 5.History of rheumatoid arthritis. Consults: Dr. Bennett. Procedure: CT of the chest done on the day of admission showed 3.4 x 2.2 cm anterior midline and rig ht-sided chest mass and questionable involvement of the anterior chest wall . History Of Present Illness: Please refer to admission note. Hospital Course: Initially, patient presented to the emergency room with fever and chest pain that s tarted 2 weeks ago as well as joint pain. CT in the ER showed lung mass as I outlined above in that CAT scan report and patient was started on IV antibiotic for presumed pneumonia, Dr. Bennett was con sulted to evaluate the patient to see if he would need to proceed the bronchoscopy and biopsy, but Dr Donna Bennett advised to give the patient a course of antibiotic for total of 10 days of Levaquin and th en follow up with him in the office with repeat imaging. If the mass is persistent, then he will pro ceed with biopsy. If the mass resolves, then he will just observe the patient. Patient has done sabino y well was able to ambulate with physical therapy. She will be discharged today in stable condition to continue days of Levaquin 500 mg once a day. Her white blood cells were hig h due to starting her on Solu-Medrol upon admission. Her potassium was low, but it was replaced with IV potassium. She will be discharged today in stable condition. Discharge Condition: Stable. Discharged Diet: Cardiac. Discharge Followup: With Dr. Bennett in couple weeks with repeat imaging follow up with primary care physician in 1 week. Discharge Activity: As tolerated. Discharge Physical Examination: Vital Signs: Blood pressure was 125/82, respiratory rate 18, pulse 69, temperature 97.6. General: Patient is alert and oriented x3. Does not look in any distress. She is saturating ____ on room air. Neck: Supple. No JVD. No carotid bruits. Chest: Clear to auscultation . Heart: Regular rate and rhythm. Extremities: She does have trace edema. Neurologic: Grossly intact. Discharge Medications: Levaquin 500 mg mg daily, Tylenol No. 3 as needed for pain, ibupro fen as needed for pain, tramadol 50 mg tablet every 6 hours as needed for pain, hydrochlorothiazide 1 tablet orally daily. SARAH/JANNET Voice ID: [id number] Report ID: [id number]
[2019-05-30 13:56] VITALS: BP 100/62; TEMP 98.3
== END 2019-05-12 13:30 | disposition home or self-care (01) | DRG 195 ==
LOC: ER 14:26 → ERHOLD 18:18 → 4TH 20:04
PROVIDERS: ADMIT Internal Medicine; ATTEND Family Medicine
DX: J18.9 Pneumonia, unspecified organism (principal); R91.8 Other nonspecific abnormal finding of lung field; I10 Essential (primary) hypertension; E87.6 Hypokalemia; M06.9 Rheumatoid arthritis, unspecified
CPT/HCPCS: 36415; 71045; 71275; 80048; 80076; 81003; 82947; 83605; 83735; 83880; 84132; 84145; 84484; 85025; 85610; 87040; 87070; 87081; 87804; 93005; 94760; 97116; 97161; 99285; J0696; J1200; J1650; J1720; J2543; J2920; J7030; Q9967

== ENCOUNTER 2019-07-05 19:26 | Inpatient (IN) | payer BC ==
[2019-07-05] MEDS ORDERED: NA CHLORIDE 0.9% 1,000 ML ONE (20:35)
[2019-07-05] MEDS ORDERED: ACETAMINOPHEN 325 MG TABLET ONE (20:35)
[2019-07-05] MEDS ORDERED: CEFTRIAXONE/SWI 1gm 1 GM/10 ML SYR ONE ×2 (20:36→22:10)
[2019-07-05 21:25] LABS: ALT/SGPT 26 U/L (12-78); AST/SGOT 21 U/L (15-37); Albumin 3.2 g/dL (3.4-5.0); Alkaline Phosphatase 65 U/L (45-117); BUN Blood Urea Nitrogen 14 mg/dL (7-18); Bicarbonate 29 mmol/L (21-32); Bilirubin Direct 0.2 mg/dL (0-0.2); Bilirubin Total 0.8 mg/dL (0.2-1.0); Glucose Level 99 mg/dL (74-106); Magnesium 2.4 mg/dL (1.8-2.4); NT PRO-BNP 72 pg/mL (<125); Potassium 3.6 mmol/L (3.5-5.1); Protein, Total 8.8 g/dL (6.4-8.2); Sodium Level 141 mmol/L (136-145); Troponin (Emerg Dept Use Only) < 0.02 ng/mL (0.0-0.045)
[2019-07-05 21:29] LABS: Absolute Lymphocytes (CBC) 1.5 K/uL (0.7-4.9); Basophils % 0.5 % (0-1.3); Hematocrit 35.5 % (36.0-45.0); Lymphocytes % 16.8 % (15.3-44.8); MPV 8.6 fL (7.6-11.3); RBC Red Blood Cell Count 4.09 M/uL (3.86-4.86)
[2019-07-05 21:30] LABS: Protime INR 1.06
--- NOTE | 2019-07-05 21:35 | EDPHYS ---
Physician Documentation [facility] Name: Guadalupe Chapin Age: 54 yrs Sex: Female : 1965 Arrival Date: 07/05/2019 Time: 19:27 Bed 25 Private MD: ED Physician Baldo Tristan HPI: 07/05 21:29 This 54 yrs old Black Female presents to ER via Wheelchair with complaints of Shortness raman Of Breath. 21:29 The patient has shortness of breath with light activity. Onset: The symptoms/episode raman began/occurred 2 day(s) ago. Duration: The symptoms are continuous, and are steadily getting worse. The patient's shortness of breath has no apparent modifying factors. Associated signs and symptoms: The patient has no apparent associated signs or symptoms. Severity of symptoms: At their worst the symptoms were mild moderate in the emergency department the symptoms are unchanged. The patient has not experienced similar symptoms in the past. Historical: - Allergies: 19:35 No Known Allergies; aj1 - Home Meds: 19:35 amlodipine oral [Active]; Hydrochlorothiazide Oral [Active]; aj1 - PMHx: 19:35 Arthritis; Hypertension; Rheumatoid Arthritis; Pneumonia; aj1 - Immunization history:: Flu vaccine is up to date. - Social history:: Smoking status: Patient/guardian denies using tobacco. - Ebola Screening: : Patient denies travel to an Ebola-affected area in the 21 days before illness onset. ROS: 21:30 Constitutional: Negative for fever, chills, and weight loss, Eyes: Negative for injury, raman pain, redness, and discharge, ENT: Negative for injury, pain, and discharge, Neck: Negative for injury, pain, and swelling, Cardiovascular: Negative for chest pain, palpitations, and edema, Abdomen/GI: Negative for abdominal pain, nausea, vomiting, diarrhea, and constipation, Back: Negative for injury and pain, : Negative for injury, bleeding, discharge, and swelling, MS/Extremity: Negative for injury and deformity, Skin: Negative for injury, rash, and discoloration, Neuro: Negative for headache, weakness, numbness, tingling, and seizure, Psych: Negative for depression, anxiety, suicide ideation, homicidal ideation, and hallucinations, Allergy/Immunology: Negative for hives, rash, and allergies, Endocrine: Negative for neck swelling, polydipsia, polyuria, polyphagia, and marked weight changes, Hematologic/Lymphatic: Negative for swollen nodes, abnormal bleeding, and unusual bruising. 21:30 Respiratory: Positive for cough, with no reported sputum. Exam: 21:30 Constitutional: This is a well developed, well nourished patient who is awake, alert, raman and in no acute distress. Head/Face: Normocephalic, atraumatic. Eyes: Pupils equal round and reactive to light, extra-ocular motions intact. Lids and lashes normal. Conjunctiva and sclera are non-icteric and not injected. Cornea within normal limits. Periorbital areas with no swelling, redness, or edema. ENT: Nares patent. No nasal discharge, no septal abnormalities noted. Tympanic membranes are normal and external auditory canals are clear. Oropharynx with no redness, swelling, or masses, exudates, or evidence of obstruction, uvula midline. Mucous membranes moist. Neck: Trachea midline, no thyromegaly or masses palpated, and no cervical lymphadenopathy. Supple, full range of motion without nuchal rigidity, or vertebral point tenderness. No Meningismus. Chest/axilla: Normal chest wall appearance and motion. Nontender with no deformity. No lesions are appreciated. Cardiovascular: Regular rate and rhythm with a normal S1 and S2. No gallops, murmurs, or rubs. Normal PMI, no JVD. No pulse deficits. Abdomen/GI: Soft, non-tender, with normal bowel sounds. No distension or tympany. No guarding or rebound. No evidence of tenderness throughout. Back: No spinal tenderness. No costovertebral tenderness. Full range of motion. Female : Normal external genitalia. Skin: Warm, dry with normal turgor. Normal color with no rashes, no lesions, and no evidence of cellulitis. MS/ Extremity: Pulses equal, no cyanosis. Neurovascular intact. Full, normal range of motion. Neuro: Awake and alert, GCS 15, oriented to person, place, time, and situation. Cranial nerves II-XII grossly intact. Motor strength 5/5 in all extremities. Sensory grossly intact. Cerebellar exam normal. Normal gait. Psych: Awake, alert, with orientation to person, place and time. Behavior, mood, and affect are within normal limits. 21:30 Respiratory: mild respiratory distress is noted, Respirations: labored breathing, is not present, asymmetrical chest movement, is not seen, accessory muscle usage, is absent, Breath sounds: decreased breath sounds, that are mild, that are moderate, rhonchi, Respiratory rate: 20 Vital Signs: 19:35 BP 139 / 87; Pulse 91; Resp 18; Temp 100.7; Pulse Ox 97% on R/A; Height 5 ft. 5 in. aj1 (165.10 cm) (R); Pain 10/10; 20:30 BP 135 / 80; Pulse 87; Resp 18; Temp 100.3; Pulse Ox 98% on R/A; Pain 0/10; jv1 21:30 BP 140 / 80; Pulse 75; Resp 18; Temp 98; Pulse Ox 99% on R/A; Pain 0/10; jv1 22:30 BP 130 / 80; Pulse 77; Resp 18; Temp 99; Pulse Ox 96% on R/A; Pain 0/10; jv1 23:30 BP 132 / 82; Pulse 72; Resp 18; Temp 98; Pulse Ox 98% on R/A; Pain 0/10; jv1 01/18 00:30 BP 130 / 80; Pulse 75; Resp 18; Temp 98; Pulse Ox 98% ; Pain 0/10; jv1 01:20 BP 131 / 81; Pulse 75; Resp 18; Temp 98.2; Pulse Ox 96% ; Pain 6/10; jv1 MDM: 07/05 20:24 Patient medically screened. [facility] 21:32 Data reviewed: vital signs, nurses notes, lab test result(s), EKG, radiologic studies, [facility] CT scan, plain films. 07/05 20:25 Order name: Basic Metabolic Panel; Complete Time: 21:27 [facility] 07/05 20:25 Order name: CBC with Diff [facility] 07/05 20:25 Order name: LFT's; Complete Time: 21:27 [facility] 07/05 20:25 Order name: Magnesium; Complete Time: 21:27 [facility] 07/05 20:25 Order name: NT PRO-BNP; Complete Time: 21:27 [facility] 07/05 20:25 Order name: PT-INR [facility] 07/05 20:25 Order name: Troponin (emerg Dept Use Only); Complete Time: 21:27 [facility] 07/05 20:25 Order name: XRAY Chest (1 view) [facility] 07/05 20:25 Order name: Blood Culture Adult (2) [facility] 07/05 20:25 Order name: Lactate; Complete Time: 21:23 [facility] 07/05 20:25 Order name: Influenza Screen (a \T\ B); Complete Time: 21:27 [facility] 07/05 22:12 Order name: Urine Dipstick--Ancillary (enter results) 07/05 22:12 Order name: Urine --Ancillary (enter results) 07/05 23:02 Order name: Procalcitonin EDDE 07/05 20:25 Order name: EKG; Complete Time: 20:27 [facility] 07/05 20:25 Order name: Cardiac monitoring; Complete Time: 20:59 [facility] 07/05 20:25 Order name: EKG - Nurse/Tech; Complete Time: 21:13 [facility] 07/05 20:25 Order name: IV Saline Lock; Complete Time: 20:59 [facility] 07/05 20:25 Order name: Labs collected and sent; Complete Time: 20:59 [facility] 07/05 20:25 Order name: O2 Per Protocol; Complete Time: 20:59 [facility] 07/05 20:25 Order name: O2 Sat Monitoring; Complete Time: 20:59 [facility] 07/05 20:25 Order name: Urine Dipstick-Ancillary (obtain specimen); Complete Time: 22:04 [facility] 07/05 21:29 Order name: CT Chest For PE Angio raman Administered Medications: 20:39 Drug: Tylenol 650 mg Route: PO; jv1 21:53 Follow up: Response: No adverse reaction; Temperature is decreased jv1 21:10 Drug: AtroVENT Aerosol 0.5 mg Route: Inhalation; ls4 21:22 Drug: Rocephin 1 grams Route: IV; Rate: per protocol; Site: left antecubital; jv1 21:54 Follow up: Response: No adverse reaction jv1 21:54 Follow up: IV Status: Completed infusion jv1 21:23 Drug: NS 0.9% 1000 ml Route: IV; Rate: 1 bolus; Site: left antecubital; jv1 21:52 Follow up: Response: No adverse reaction; IV Status: Completed infusion jv1 22:00 Drug: Xopenex 1.25 mg Route: Inhalation; ls4 22:00 Drug: Rocephin 1 grams Route: IV; Rate: per protocol; Site: left antecubital; jv1 22:26 Follow up: Response: No adverse reaction; IV Status: Completed infusion jv1 22:10 Drug: Zithromax 500 mg Route: IVPB; Infused Over: 1 hrs; Site: left antecubital; jv1 07/06 01:26 Follow up: Response: No adverse reaction; IV Status: Completed infusion jv1 Disposition: 07/05/19 21:34 Hospitalization ordered by Deshawn Golden for Inpatient Admission. Preliminary diagnosis are Dyspnea, Pneumonia due to other specified bacteria - multifocal pneumonia, Fever, unspecified. - Bed requested for Telemetry/MedSurg (Inpatient). - Status is Inpatient Admission. jv1 - Condition is Fair. - Problem is new. - Symptoms have improved. UTI on Admission? No Signatures: Dispatcher [employer] EDMS Karie Martinez RN RN aj1 aBldo Tristan MD MD cha Lasagna, Tonya RN RN tl1 Bertha Cross RN RN jv1 Jacquelin Dickerson RN RN ls4 Corrections: (The following items were deleted from the chart) 07/05 22:53 21:34 Hospitalization Ordered by Deshawn Golden MD for Inpatient Admission. Preliminary raman diagnosis is Dyspnea; Pneumonia due to other specified bacteria; Fever, unspecified. Bed requested for Telemetry/MedSurg (Inpatient). Status is Inpatient Admission. Condition is Fair. Problem is new. Symptoms have improved. UTI on Admission? No. raman 23:59 22:53 07/05/2019 21:34 Hospitalization Ordered by Deshawn Golden MD for Inpatient tl1 Admission. Preliminary diagnosis is Dyspnea; Pneumonia due to other specified bacteria - multifocal pneumonia; Fever, unspecified. Bed requested for Telemetry/MedSurg (Inpatient). Status is Inpatient Admission. Condition is Fair. Problem is new. Symptoms have improved. UTI on Admission? No. raman 07/06 01:25 07/05 23:59 07/05/2019 21:34 Hospitalization Ordered by Deshawn Golden MD for Inpatient jv1 Admission. Preliminary diagnosis is Dyspnea; Pneumonia due to other specified bacteria - multifocal pneumonia; Fever, unspecified. Bed requested for Telemetry/MedSurg (Inpatient). Status is Inpatient Admission. Condition is Fair. Problem is new. Symptoms have improved. UTI on Admission? No. tl1
--- NOTE | 2019-07-05 21:35 | ER ---
Nurse's Notes [facility] Name: Guadalupe Chapin Age: 54 yrs Sex: Female : 1965 Arrival Date: 07/05/2019 Time: 19:27 Bed 25 Private MD: Diagnosis: Dyspnea;Pneumonia due to other specified bacteria-multifocal pneumonia;Fever, unspecified Presentation: 07/05 19:33 Presenting complaint: Patient states: "I've been sick for while, I had pneumonia, I aj1 dont know how long ago, maybe a month and I felt better so I went back to work, but then I started running fever again on Monday" Patient also reports shortness of breath, cough. Denies nasal congestion, N/V/D. Transition of care: patient was not received from another setting of care. Onset of symptoms was 2019. Risk Assessment: Do you want to hurt yourself or someone else? Patient reports no desire to harm self or others. Initial Sepsis Screen: Does the patient meet any 2 criteria? HR > 90 bpm. No. Patient's initial sepsis screen is negative. Does the patient have a suspected source of infection? Yes: Productive cough/pneumonia. Care prior to arrival: None. 19:33 Method Of Arrival: Wheelchair aj1 19:33 Acuity: DEVIN 3 aj1 Triage Assessment: 19:35 General: Appears in no apparent distress. comfortable, Behavior is calm, cooperative, aj1 appropriate for age. Pain: Pain currently is 10 out of 10 on a pain scale. Neuro: Level of Consciousness is awake, alert, obeys commands. Cardiovascular: Patient's skin is warm and dry. Respiratory: Reports shortness of breath Airway is patent Respiratory effort is even, unlabored, Respiratory pattern is regular, symmetrical, Onset: The symptoms/episode began/occurred gradually. Respiratory: the patient has mild shortness of breath. Historical: - Allergies: 19:35 No Known Allergies; aj1 - Home Meds: 19:35 amlodipine oral [Active]; Hydrochlorothiazide Oral [Active]; aj1 - PMHx: 19:35 Arthritis; Hypertension; Rheumatoid Arthritis; Pneumonia; aj1 - Immunization history:: Flu vaccine is up to date. - Social history:: Smoking status: Patient/guardian denies using tobacco. - Ebola Screening: : Patient denies travel to an Ebola-affected area in the 21 days before illness onset. Screenin:43 Abuse screen: Denies threats or abuse. Denies injuries from another. Nutritional ls4 screening: No deficits noted. Tuberculosis screening: No symptoms or risk factors identified. Fall Risk None identified. Assessment: 20:30 General: Appears uncomfortable, obese, well groomed, Behavior is calm, cooperative, jv1 appropriate for age, Reports fever for 1-2 days, fatigue for 1-2 days. Pain: Complains of pain in generalized body aches Pain began 2-3 days ago. Neuro: Oriented to person, place, time, situation, Shoveler are equal bilaterally Moves all extremities. Full function. Cardiovascular: Denies chest pain, Heart tones S1 S2 Capillary refill < 3 seconds Patient's skin is warm and dry. Rhythm is regular. Respiratory: Airway is patent Respiratory effort is even, unlabored, Respiratory pattern is regular, symmetrical, Breath sounds are diminished bilaterally. GI: Abdomen is round non-distended, obese, Bowel sounds present X 4 quads. Abd is soft and non tender. : No signs and/or symptoms were reported regarding the genitourinary system. EENT: No signs and/or symptoms were reported regarding the EENT system. Derm: No signs and/or symptoms reported regarding the dermatologic system. Skin is intact, is healthy with good turgor. Musculoskeletal: Circulation, motion, and sensation intact. Capillary refill < 3 seconds. 21:30 Reassessment: Patient appears in no apparent distress at this time. No changes from jv1 previously documented assessment. Patient and/or family updated on plan of care and expected duration. Pain level reassessed. Patient is alert, oriented x 3, equal unlabored respirations, skin warm/dry/pink. Patient denies pain at this time. Patient states feeling better. 22:30 Reassessment: Patient appears in no apparent distress at this time. No changes from jv1 previously documented assessment. Patient and/or family updated on plan of care and expected duration. Pain level reassessed. Patient is alert, oriented x 3, equal unlabored respirations, skin warm/dry/pink. Patient denies pain at this time. Patient states feeling better. 23:30 Reassessment: No changes from previously documented assessment. Patient and/or family jv1 updated on plan of care and expected duration. Pain level reassessed. Patient is alert, oriented x 3, equal unlabored respirations, skin warm/dry/pink. Patient denies pain at this time. Patient states feeling better. 07/06 00:30 Reassessment: Patient appears in no apparent distress at this time. No changes from jv1 previously documented assessment. Patient and/or family updated on plan of care and expected duration. Pain level reassessed. Patient is alert, oriented x 3, equal unlabored respirations, skin warm/dry/pink. Vital Signs: 07/05 19:35 BP 139 / 87; Pulse 91; Resp 18; Temp 100.7; Pulse Ox 97% on R/A; Height 5 ft. 5 in. aj1 (165.10 cm) (R); Pain 10/10; 20:30 BP 135 / 80; Pulse 87; Resp 18; Temp 100.3; Pulse Ox 98% on R/A; Pain 0/10; jv1 21:30 BP 140 / 80; Pulse 75; Resp 18; Temp 98; Pulse Ox 99% on R/A; Pain 0/10; jv1 22:30 BP 130 / 80; Pulse 77; Resp 18; Temp 99; Pulse Ox 96% on R/A; Pain 0/10; jv1 23:30 BP 132 / 82; Pulse 72; Resp 18; Temp 98; Pulse Ox 98% on R/A; Pain 0/10; jv1 07/06 00:30 BP 130 / 80; Pulse 75; Resp 18; Temp 98; Pulse Ox 98% ; Pain 0/10; jv1 01:20 BP 131 / 81; Pulse 75; Resp 18; Temp 98.2; Pulse Ox 96% ; Pain 6/10; jv1 ED Course: 07/05 19:27 Patient arrived in ED. cl3 19:34 Triage completed. aj1 19:35 Arm band placed on Patient placed in waiting room, Patient notified of wait time. aj1 19:40 Patient has correct armband on for positive identification. Bed in low position. Call ls4 light in reach. Side rails up X 1. monitor worker on. Pulse ox on. NIBP on. 19:40 No provider procedures requiring assistance completed. ls4 20:24 Baldo Tristan MD is Attending Physician. raman 20:52 Initial lab(s) drawn, by me, sent to lab. First set of blood cultures drawn by me, Flu lt1 and/or RSV swab sent to lab. 20:56 Jacquelin Dickerson, RN is Primary Nurse. ls4 20:57 Inserted saline lock: 22 gauge in left antecubital area, using aseptic technique. lt1 21:01 XRAY Chest (1 view) In Process Unspecified. EDMS 21:13 EKG done, by ED staff, reviewed by Baldo Tristan MD. lt1 21:14 Influenza Screen (a \\T\\ B) Sent. lt1 21:32 Deshawn Golden MD is Hospitalizing Provider. [facility] 21:58 CT Chest For PE Angio In Process Unspecified. EDMS 07/06 01:24 Patient admitted, IV remains in place. jv1 Administered Medications: 07/05 20:39 Drug: Tylenol 650 mg Route: PO; jv1 21:53 Follow up: Response: No adverse reaction; Temperature is decreased jv1 21:10 Drug: AtroVENT Aerosol 0.5 mg Route: Inhalation; ls4 21:22 Drug: Rocephin 1 grams Route: IV; Rate: per protocol; Site: left antecubital; jv1 21:54 Follow up: Response: No adverse reaction jv1 21:54 Follow up: IV Status: Completed infusion jv1 21:23 Drug: NS 0.9% 1000 ml Route: IV; Rate: 1 bolus; Site: left antecubital; jv1 21:52 Follow up: Response: No adverse reaction; IV Status: Completed infusion jv1 22:00 Drug: Xopenex 1.25 mg Route: Inhalation; ls4 22:00 Drug: Rocephin 1 grams Route: IV; Rate: per protocol; Site: left antecubital; jv1 22:26 Follow up: Response: No adverse reaction; IV Status: Completed infusion jv1 22:10 Drug: Zithromax 500 mg Route: IVPB; Infused Over: 1 hrs; Site: left antecubital; jv1 07/06 01:26 Follow up: Response: No adverse reaction; IV Status: Completed infusion jv1 Outcome: 07/05 21:34 Decision to Hospitalize by Provider. [facility] 07/06 01:24 Admitted to Med/surg accompanied by nurse, accompanied by tech, family with patient, jv1 via stretcher, room 218. Condition: improved Instructed on the need for admit. 01:25 Patient left the ED. jv1 Signatures: Dispatcher [employer] EDKarie Brown RN RN aj1 Baldo Tristan MD MD cha Vicente, Joyce, RN RN jv1 Jacquelin Dickerson RN RN ls4 Jen Shea 1 Ana Maria Fulton cl3 Corrections: (The following items were deleted from the chart) 07/05 21:54 21:30 Rocephin 1 grams IV at per protocol in left antecubital jv1 jv1 21:54 21:51 Response: No adverse reaction; IV Status: Completed infusion jv1 jv1
[2019-07-05] MEDS ORDERED: NA CHLORIDE 0.9% 250 ML ONE (22:10)
[2019-07-05] MEDS ORDERED: IPRATROPIUM BROM 0.5MG/2.5ML ONE (22:10)
[2019-07-05] MEDS ORDERED: AZITHROMYCIN 500 MG INJ IVPB ONE (22:10)
[2019-07-05] MEDS ORDERED: LEVALBUTEROL 1.25 MG/3 ML NEB ONE (22:10)
[2019-07-05 22:14] LABS: Urine Blood NEGATIVE (NEG); Urine Glucose NEGATIVE (NEG); Urine Protein TRACE (NEG)
[2019-07-05] MEDS ORDERED: ONDANSETRON 4 MG/2 ML VIAL IV PRN (22:58)
[2019-07-05] MEDS ORDERED: ACETAMINOPHEN 500 MG TAB PO PRN (22:58)
[2019-07-05] MEDS ORDERED: NA CHLORIDE 0.9% 1,000 ML IV SCH (23:00)
[2019-07-05] MEDS ORDERED: HYDROMORPHONE HCL 0.5 MG/0.5 ML INJ IV PRN (23:51)
[2019-07-06] MEDS ORDERED: HYDROMORPHONE HCL 0.5 MG/0.5 ML INJ ONE (01:11)
[2019-07-06 01:33] VITALS: BMI 38.3
[2019-07-06] MEDS: IPRATROPIUM BROM 0.5MG/2.5ML NEB SCH ×4 (02:20→20:32)
[2019-07-06] MEDS: ALBUTEROL 2.5 MG/3 ML NEB SOL NEB SCH ×4 (02:20→20:32)
[2019-07-06] MEDS: METHYLPREDNISOLONE 125 MG INJ IV SCH ×2 (02:24→05:24)
--- NOTE | 2019-07-06 04:09 | P.HP ---
Certification for Inpatient Patient admitted to: Inpatient With expected LOS: >2 Midnights Patient will require the following post-hospital care: None Practitioner: I am a practitioner with admitting privileges, knowledge of patient current condition, hospital course, and medical plan of care. Services: Services provided to patient in accordance with Admission requirements found in Title 42 Section 412.3 of the Code of Federal Regulations Patient History Date of Service: 07/05/19 Reason for admission: Pneumonia History of Present Illness: Patient is a 54-year-old female who is had pneumonia in April. This was around . She was also found to have a lung mass at that time. This was extending into the anterior chest wall. Patient was discharged on antibiotics. She had a chest x-ray follow-up a month later which did not reveal any abnormality. Patient comes in once again not feeling well. Her chest x-ray reveals interstitial pneumonia in the right lung and some left lower lung pneumonia. Patient has a history of Sjorgen's syndrome as well as rheumatoid arthritis. Concern that she may have an autoimmune process causing recurrent pneumonitis. Will get workup performed. Also pulmonary consultation. Allergies piperacillin [From Zosyn] Allergy (Verified 05/11/19 01:16) Anaphylaxis tazobactam [From Zosyn] Allergy (Verified 05/11/19 01:16) Anaphylaxis Home Medications: Amlodipine [Norvasc*] 1 tab PO DAILY 05/10/19 Codeine/APAP [Tylenol #3*] 2 tab PO Q6H PRN 05/10/19 Ibuprofen 1 tab PO DAILY PRN 05/10/19 Tramadol HCl [Ultram] 1 tab PO Q6H PRN 05/10/19 hydroCHLOROthiazide [Hydrochlorothiazide] 1 tab PO DAILY 05/10/19 - Past Medical/Surgical History Has patient received pneumonia vaccine in the past: No Diabetic: No -: Rheumatoid Arthritis -: OsteoArthritis -: Sjogrens -: HTN -: Umbilical Hernia Repair Psychosocial/ Personal History: patient lives at home. She is - Family History Mother Medical History: Diabetes - Social History Smoking Status: Former smoker Alcohol use: Yes CD- Drugs: No Caffeine use: Yes Place of Residence: Home Review of Systems 10-point ROS is otherwise unremarkable Physical Examination - Vital Signs Temperature: 97.3 F Blood Pressure: 138/74 Pulse: 91 Respirations: 18 Pulse Ox (%): 99 - Physical Exam General: Alert, In no apparent distress, Oriented x3 HEENT: Atraumatic, PERRLA, Mucous membr. moist/pink, EOMI, Sclerae nonicteric Neck: Supple, 2+ carotid pulse no bruit, No LAD, Without JVD or thyroid abnormality Respiratory: Expiratory wheezes, Rhonchi/gurgles Cardiovascular: Regular rate/rhythm, Normal S1 S2, No murmurs Gastrointestinal: Normal bowel sounds, Soft and benign, Non-distended, No tenderness Musculoskeletal: No clubbing, No swelling, No tenderness Integumentary: No rashes Neurological: Normal gait, Normal speech, Normal strength at 5/5 x4 extr, Normal tone, Sensation intact, Cranial nerves 3-12 intact, Normal affect Lymphatics: No axilla or inguinal lymphadenopathy - Studies Laboratory Data (last 24 hrs) 07/05/19 20:52: PT 12.5, INR 1.06 07/05/19 20:52: WBC 9.2, Hgb 11.9 L, Hct 35.5 L, Plt Count 242 07/05/19 20:52: Sodium 141, Potassium 3.6, BUN 14, Creatinine 0.94, Glucose 99, Magnesium 2.4, Total Bilirubin 0.8, AST 21, ALT 26, Alkaline Phosphatase 65 Microbiology Data (last 24 hrs): 07/05/19 20:52 Nasopharnyx Influenza Type A Antigen Screen - Final 07/05/19 20:52 Nasopharnyx Influenza Type B Antigen Screen - Final Assessment & Plan - Problems (Diagnosis) (1) Disorder of lung with Sjogren's syndrome Current Visit: Yes Status: Acute (2) Pneumonia Current Visit: No Status: Acute Qualifiers: Pneumonia type: due to unspecified organism Laterality: right Lung location: unspecified part of lung Qualified Code(s): J18.9 - Pneumonia, unspecified organism (3) Hypertension Current Visit: No Status: Chronic Qualifiers: Hypertension type: essential hypertension Qualified Code(s): I10 - Essential (primary) hypertension (4) Rheumatoid arthritis Current Visit: No Status: Chronic - Plan 1. Continue with IV antibiotics 2. Awaiting sputum and blood culture 3. Repeat chest x-ray 4. Continue with IV steroids 5. Pulmonary consultation 6. Continue with nebs as needed 7. O2 per protocol 8. Continue with gentle hydration 9. Repeat labs to evaluate for additional autoimmune process. Patient may have lung disease associated with Sjorgen's. May benefit from bronchoscopy for diagnosis 10. GI and DVT prophylaxis Discharge Plan: Home Plan to discharge in: Greater than 2 days - Advance Directives Does patient have a Living Will: No Does patient have a Durable POA for Healthcare: No - Code Status/Comfort Care Code Status Assessed: Yes Code Status: Full Code Critical Care: No Time Spent Managing PTS Care (In Minutes): 45
[2019-07-06 05:40] LABS: Absolute Lymphocytes (CBC) 0.7 K/uL (0.7-4.9); Basophils % 0.3 % (0-1.3); Hematocrit 34.6 % (36.0-45.0); Lymphocytes % 10.9 % (15.3-44.8); MPV 8.2 fL (7.6-11.3); RBC Red Blood Cell Count 3.93 M/uL (3.86-4.86)
--- NOTE | 2019-07-06 07:58 | RAD REPORT ---
EXAM DESCRIPTION: [facility] Single View07/05/2019 9:01 pm CLINICAL HISTORY: Cough COMPARISON: May 2019 FINDINGS: Mild to moderate patchy opacities within the right lung. Left lung appears clear. The heart is normal size IMPRESSION: Mild to moderate right pneumonia
[2019-07-06 08:13] LABS: ALT/SGPT 22 U/L (12-78); AST/SGOT 18 U/L (15-37); Albumin 2.8 g/dL (3.4-5.0); Alkaline Phosphatase 58 U/L (45-117); BUN Blood Urea Nitrogen 11 mg/dL (7-18); Bicarbonate 24 mmol/L (21-32); Bilirubin Total 0.5 mg/dL (0.2-1.0); Glucose Level 110 mg/dL (74-106); HDL Cholesterol 25 mg/dL (40-60); LDL Cholesterol, Calculated 123 (<130); Magnesium 2.2 mg/dL (1.8-2.4); NT PRO-BNP 53 pg/mL (<125); Phosphorus 2.8 mg/dL (2.5-4.9); Potassium 3.5 mmol/L (3.5-5.1); Protein, Total 8.2 g/dL (6.4-8.2); Sodium Level 141 mmol/L (136-145)
[2019-07-06] MEDS ORDERED: AZITHROMYCIN IV 500 MG in NA CHLORIDE 0.9% 250 ML IVPB SCH (09:00)
[2019-07-06] MEDS ORDERED: CEFTRIAXONE/SWI 1gm 1 GM/10 ML SYR IVP SCH (09:00)
[2019-07-06] MEDS ORDERED: CEFTRIAXONE 1 GM/NS 50 ML 1 GM/50 ML BAG IV SCH (09:00)
[2019-07-06] MEDS: ENOXAPARIN 40 MG/0.4 ML SQ SCH (09:12)
[2019-07-06] MEDS: HYDROCODONE/APAP 7.5/325 MG TAB PO PRN (09:38)
[2019-07-06] MEDS ORDERED: POTASSIUM CL SA 10 MEQ TAB PO ONE (10:00)
--- NOTE | 2019-07-06 10:10 | P.CNS ---
Date of Consult: 07/06/19 Chief Complaint: Pneumonia History of Present Illness: Patient is 54 years of age was admitted in April for the diagnosis of pneumonia has in quite recovered from that were fever of cough shortness of breath past few days and appeared in the hospital the former smoker was likely has underlying obstructive airways disease CT scan shows some patchy inflammatory changes in the right lung chemistries reviewed unremarkable Allergies piperacillin [From Zosyn] Allergy (Verified 05/11/19 01:16) Anaphylaxis tazobactam [From Zosyn] Allergy (Verified 05/11/19 01:16) Anaphylaxis Home Medications: Amlodipine [Norvasc*] 1 tab PO DAILY 05/10/19 Codeine/APAP [Tylenol #3*] 2 tab PO Q6H PRN 05/10/19 Ibuprofen 1 tab PO DAILY PRN 05/10/19 Tramadol HCl [Ultram] 1 tab PO Q6H PRN 05/10/19 hydroCHLOROthiazide [Hydrochlorothiazide] 1 tab PO DAILY 05/10/19 - Past Medical/Surgical History Diabetic: No -: Rheumatoid Arthritis -: OsteoArthritis -: Sjogrens -: HTN -: Umbilical Hernia Repair Psychosocial/ Personal History: patient lives at home. She is - Family History Mother Medical History: Diabetes - Social History Alcohol use: Yes CD- Drugs: No Caffeine use: Yes Place of Residence: Home Review of Systems 10-point ROS is otherwise unremarkable General: Weakness Respiratory: Cough, Shortness of Breath Physical Examination Temp Pulse Resp BP Pulse Ox 97.1 F 17 L 17 145/79 H 98 07/06/19 08:00 07/06/19 08:00 07/06/19 09:38 07/06/19 08:00 07/06/19 09:38 General: Alert, Oriented x3 HEENT: Atraumatic Neck: Supple Respiratory: Clear to auscultation bilaterally, Friction rub Cardiovascular: Regular rate/rhythm, Normal S1 S2 Laboratory Data (last 24 hrs) 07/05/19 20:52: PT 12.5, INR 1.06 07/05/19 20:52: WBC 9.2, Hgb 11.9 L, Hct 35.5 L, Plt Count 242 07/05/19 20:52: Sodium 141, Potassium 3.6, BUN 14, Creatinine 0.94, Glucose 99, Magnesium 2.4, Total Bilirubin 0.8, AST 21, ALT 26, Alkaline Phosphatase 65 - Problems (1) Shortness of breath Current Visit: Yes Status: Acute Plan: Patient is 54 years of age admitted with some cough shortness of breath slight fever patchy inflammatory changes in the right lung the former heavy smoker I suspect that she has underlying obstructive airways disease anterior inflammatory changes on a prior CT scan of cleared she has new patchy changes in the right lung C reactive protein elevated patient has rheumatoid arthritis Sjogren syndrome normal white count vital signs stable oxygenation satisfactory I recommended trial of prednisone with an Advair/Symbicort/or Breo inhaler for now and a dose of levofloxacin she will need outpatient pulmonary function testing
[2019-07-06] MEDS: levoFLOXacin 500 MG TAB PO SCH (12:21)
[2019-07-06] MEDS: predniSONE 20 MG TAB PO SCH ×2 (12:21→21:02)
--- NOTE | 2019-07-06 18:17 | PN ---
Subjective: Currently, patient lying in bed. She looks comfortable. She continues to have shortnes s of breath. No fever, no chills overnight. Her daughter at the bedside. Objective: Vital Signs: Blood pressure is 145/79, respiratory rate 19, pulse 91, temperature 97.1. Patient saturating 96% on room air. General: She is alert and oriented x3. Does not look in any distress. HEENT: Atraumatic, normocephalic. PERRLA. Oral mucosa is moist. Neck: Supple. No JVD. No bruits. Chest: Clear to auscultation with friction rub. Heart: Regular rate and rhythm. S1, S2 normal. No gallop or murmur. Abdomen: Soft, nontender. No masses. No hepatosplenomegaly. Positive bowel sounds. Extremities: No clubbing, no cyanosis, or edema. No calf tenderness. Neurologic: Grossly intact. Cranial exam 2 through 12 intact. Normal sensation. Normal reflexes. Normal muscle strength. Laboratory Data: Today, showed CBC was normal except for hemoglobin 11.5, platelets 220. Chemistry was normal except for chloride 108, glucose 110, calcium 8.4, CRP 136. UA negative. Autoimmune prof ile pending. Assessment And Plan: 1.Dyspnea, most likely secondary to pneumonia with questionable underlying COPD according to Dr. Oly lomeli. Continue inhaler with Atrovent as well as albuterol. Continue oral antibiotic with oral Leva sussy as well as steroid, on prednisone 20 twice a day. 2.Pulmonary infiltrate with history of Sjogren syndrome. Autoimmune profile pending. Patient need PFTs as outpatient. 3.Hypokalemia, replace potassium. 4.Deep vein thrombosis prophylaxis, on Lovenox. 5.History of Sjogren syndrome. Observe for now. Autoimmune profile is still pending. Dr. Bennett is not saying to do a bronchoscopy. MT/MODL Voice ID: [id number] Report ID: [id number]
[2019-07-07] MEDS: HYDROCODONE/APAP 7.5/325 MG TAB PO PRN (00:10)
[2019-07-07] MEDS: ALBUTEROL 2.5 MG/3 ML NEB SOL NEB SCH ×3 (02:37→13:30)
[2019-07-07] MEDS: IPRATROPIUM BROM 0.5MG/2.5ML NEB SCH ×3 (02:37→13:30)
[2019-07-07 05:31] LABS: Basophils % 0.3 % (0-1.3); Hematocrit 31.2 % (36.0-45.0); MPV 8.4 fL (7.6-11.3); RBC Red Blood Cell Count 3.59 M/uL (3.86-4.86)
[2019-07-07 05:50] LABS: Albumin 2.8 g/dL (3.4-5.0); Bilirubin Total 0.3 mg/dL (0.2-1.0); Protein, Total 7.9 g/dL (6.4-8.2)
[2019-07-07 07:38] LABS: Blood Morphology Comment NOT SEEN (NOT SEEN); Platelet Estimate ADEQ
[2019-07-07 08:20] VITALS: O2SAT 95
[2019-07-07] MEDS: ENOXAPARIN 40 MG/0.4 ML SQ SCH (08:50)
[2019-07-07] MEDS: levoFLOXacin 500 MG TAB PO SCH (08:51)
[2019-07-07] MEDS: predniSONE 20 MG TAB PO SCH ×2 (08:51→17:24)
--- NOTE | 2019-07-07 14:02 | EKG ---
Test Date: 2019-07-05 Test Time: 21:11:41 Parking Ramp Attendant: EVETTET MEASUREMENT RESULTS: Intervals: Rate: 79 CA: 144 QRSD: 76 QT: 370 QTc: 424 [place]: P: 71 CA: 144 QRS: 61 T: 64 INTERPRETIVE STATEMENTS: Normal sinus rhythm Normal ECG Compared to ECG 05/10/2019 14:30:29 No significant changes Electronically Signed On 07-07-19 13:59:22 LEATHER TOGGLER by Pineda Bustillos
[2019-07-07 17:55] VITALS: BP 124/73; TEMP 98.4
[2019-07-07 21:08] LABS: Rheumatoid Factor NEG (NEG)
--- NOTE | 2019-07-08 00:16 | DS ---
Date of Discharge: 07/07/2019 Discharge Diagnoses: 1.Pneumonia. 2.History of Sjogren syndrome. 3.Hypertension. 4.Anemia. 5.Hypoalbuminemia. Consult: Dr. Bennett. Procedures: CT of the chest which showed some motion artifact, multifocal infiltrate, right greater than the left, with some emphysema. History Of Present Illness: Please refer to Dr. Golden's note. Hospital Course: Initially, patient presented with progressive shortness of breath. There, she was evaluated. Chest x-ray done and showed mild to moderate right pneumonia. CT of the chest done and o n preliminary showed questionable infiltrate on the right side, ? patchy inflammatory changes. Patie nt was started on IV antibiotic with Levaquin and Pulmonary consult requested. Given patient's histo ry of Sjogren syndrome, autoimmune profile ordered, but that is still pending. Dr. Bennett evaluate d the patient and advised discharge her on Levaquin, prednisone 20 mg twice a day for 7 days, as well as Advair Diskus. He advised also to follow up with him as outpatient and consider doing pulmonary function test. Dr. Bennett to follow up further imaging and consider if patient needs any biopsy. Again, it was more interstitial infiltrates rather than a mass, so Dr. Bennett to decide if the ryan ent will benefit from a bronchoscopy. Patient overnight did well. Her shortness of breath improved. She will continue on the Levaquin for 7 days, prednisone as well, and she will receive a new prescr iption for Advair. Discharge Condition: Stable. Discharged Diet: Cardiac. Discharge Followup: With Dr. Bennett next week. This week with PFTs and further workup. Follow up with primary care physician to discuss the pending autoimmune profile that we ordered. Discharge Activity: As tolerated. Discharge Condition: Stable. Discharge Physical Examination: Vital Signs: Blood pressure is 135/65, respiratory rate 18, pulse 7 8, temperature 97.9, saturating 95% on room air. General: Patient is alert and oriented x3. Does not look in any distress. HEENT: Atraumatic, normocephalic. PERRLA. Oral mucosa is moist. Neck: Supple. No JVD. No carotid bruits. Chest: Clear to auscultation. Good air entry. Heart: Regular rate and rhythm. S1, S2 normal. No gallop or murmur. Abdomen: Soft, nontender. No masses. No hepatosplenomegaly. Positive bowel sounds. Extremities: No clubbing, cyanosis, or edema. No calf tenderness. Neurologic: Grossly intact. Discharge Medications: 1.Advair Diskus 150/50 inhaler twice a day. 2.Levaquin 500 mg once a day for 7 days. 3.Prednisone 20 mg twice a day for 7 days. 4.Norvasc 5 mg daily. 5.Tylenol No. 3 two tablets every 6 hours as needed. 6.Hydrochlorothiazide 12.5 mg daily. 7.Ibuprofen 800 mg as needed. 8.Tramadol 50 mg every 6 hours as needed. SARAH/JANNET Voice ID: [id number] Report ID: [id number]
--- NOTE | 2019-07-08 16:06 | RAD REPORT ---
EXAM DESCRIPTION: CT - Chest For Pe Angio - 07/05/2019 9:58 pm CLINICAL HISTORY: DYSPNEA TECHNIQUE: Contiguous axial images obtained through the chest during angiographic phase following th e uneventful administration of IV contrast. Coronal reformatted images were provided. MIP reformatted images were provided. This exam was performed according to our departmental dose-optimization program, which includes autom ated exposure control, adjustment of the mA and/or kV according to patient size and/or use of iterati ve reconstruction technique. COMPARISON: No prior exams provided for comparison. FINDINGS: Diagnostic quality: There is good opacification of the pulmonary arterial tree. Motion art ifact degrades image quality and limits evaluation of segmental and subsegmental vessels. Lungs: Mild centrilobular emphysema. Multifocal reticulonodular and groundglass opacities within the right upper, middle and lower lobes and to a lesser extent within the left lower lobe. Airways are pa tent. Pleura: No effusion. No pneumothorax. Heart and pericardium: The heart is normal in size. Minimal coronary artery calcification. No pericar dial effusion. Mediastinum and leo: Mildly enlarged mediastinal and bilateral hilar lymph nodes measuring up to 12 mm in short axis. Lower neck and chest wall: Unremarkable Vessels: No pulmonary arterial filling defects. Incidental note is made of a 2-vessel aortic arch wit h common origin of the right brachiocephalic and left common carotid arteries. Mild atherosclerotic d isease. No thoracic aortic aneurysm. Upper abdomen: The liver is enlarged and diffusely low in density compatible with steatosis. Bones: Unremarkable IMPRESSION: 1. Motion artifact degrades image quality and limits evaluation of segmental and subse gmental vessels. No central pulmonary embolic disease. 2. Multifocal infiltrates, right greater than left. 3. Other findings as above. Electronically signed by: Jesus Garcia MD 07/05/2019 10:[address] SCAN TECHNICIAN Due to temporary technical issues with the PACS/Fluency reporting system, reports are being signed by the in house radiologist as a courtesy to ensure prompt reporting. The interpreting radiologist is f ully responsible for the content of the report.
== END 2019-07-07 19:40 | disposition home or self-care (01) | DRG 195 ==
LOC: ER 19:26 → ERHOLD 22:58 → 2ND 07-06 01:02
PROVIDERS: ADMIT Hospitalist; ATTEND Hospitalist
DX: J18.9 Pneumonia, unspecified organism (principal); M35.00 Sjogren syndrome, unspecified; I10 Essential (primary) hypertension; D64.9 Anemia, unspecified; E88.09 Other disorders of plasma-protein metabolism, not elsewhere classified; E87.6 Hypokalemia; M06.9 Rheumatoid arthritis, unspecified
CPT/HCPCS: 36415; 71045; 71275; 80048; 80053; 80061; 80076; 81003; 81025; 83520; 83605; 83735; 83880; 84100; 84145; 84484; 85025; 85610; 85652; 86021; 86038; 86140; 86200; 86225; 86430; 87040; 87804; 93005; 94640; 94760; 96365; 96366; 96368; 99285; J0456; J0696; J1170; J1650; J2930; J7030; J7512; Q9967

== ENCOUNTER 2019-10-14 | Emergency (ER) | payer BC | END 2019-10-14 18:52 | disposition home or self-care (01) | CPT/HCPCS: 96372; 99284 ==

== ENCOUNTER 2022-05-17 15:19 | Emergency (ER) | payer BC ==
--- OUTSIDE RECORDS SUMMARY | 2022-05-17 15:23 | XMS REPORT | Continuity of Care Document ---
:1965 Author Organization [facility] t Address [address] [place] [address] Care Team Providers Name Role Phone Fernanda Bernabe MD Primary Care Physician Fernanda Bernabe MD Attending Clinician Joann Landry MA Attending Clinician Unavailable Esperanza Schneider MD Attending Clinician Daniel Benson MD Attending Clinician Caroline Mills NP Attending Clinician MD ESPERANZA SCHNEIDER Attending Clinician Unavailable CHU MARTEL Attending Clinician Unavailable ESPERANZA SCHNEIDER Admitting Clinician Unavailable MD ESPERANZA SCHNEIDER Admitting Clinician Unavailable Payers Payer Name Policy Type Policy Number Effective Date Expiration Date S ource Problems Condition Condition Condition Status Onset Resolution Last Treating Co mments Source Name Details Category Date Date Treatment Clinician Date Hyperglyce Hyperglyce Disease Active 2021-06 M ethodi glenn glenn 07-04 00:00: Hospita 00 l Colon Colon Disease Active 2020-06 Overview: Method i cancer cancer 07-[address] screening screening 00:00: g of this H ospita 00 note l might be different from the original. Added automatic ally from request for surgery [id number] Lupus Lupus Disease Active Methodi 09-13 00:00: Hospita 00 l Rheumatoid Rheumatoid Disease Active M ethodi arthritis arthritis 09-13 st involving involving 00:00: Hosp osvaldo multiple multiple 00 l sites with sites with positive positive rheumatoid rheumatoid factor factor Sjogren's Sjogren's Disease Active Met hodi disease disease 09-11 00:00: Hospita 00 l Lung Lung Disease Active Methodi nodule nodule 07-03 00:00: Hospita 00 l Chronic Chronic Disease Active Methodi obstructiv obstructiv 07-03 st e e 00:00: Hospita pulmonary pulmonary 00 l disease disease Viral Viral Disease Active [facility] pneumonia pneumonia 07-03 st 00:00: Hospita 00 l Hypertensi Hypertensi Disease Active M ethodi on on [facility] Hospita l Hyperlipid Hyperlipid Disease Active M ethodi emia [facility] Hospita l 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 Family History Family Member Diagnosis Comments Start Date Stop Date Source Natural father Diabetes [facility] Natural father Hypertension [facility] Natural mother Colon polyps [facility] Natural mother Heart disease [facility] Natural mother Hypertension [facility] Social History Social Habit Start Date Stop Date Quantity Comments Source History of tobacco Current smoker [facility] Alcohol intake 2022-05-03 2022-05-03 Current drinker [facility] 00:00:00 00:00:00 of alcohol Hospital (finding) Cigarettes smoked 2021-06-28 2021-06-28 [facility] current (pack per 00:00:00 00:00:00 Hospita l day) - Reported Tobacco use and 2021-06-28 2021-06-28 Smokeless tobacco [facility] exposure 00:00:00 00:00:00 non-user Hospital Alcohol Comment 2020-09-11 2020-09-11 [facility] 00:[facility] 00:[facility]00 Hospital Sex Assigned At [birth year] [facility] 00:00:00 00:00:00 Hospital Smoking Status Start Date Stop Date Source Ex-smoker 2021-06-28 00:00:00 2021-06-28 00:00:00 [facility] Medications Ordered Filled Start Stop Current Ordering Indication Dosage Frequency Signature Comments Components Source Medication Medication Date Date Medication? Clinician (SIG) Name Name amLODIPine 2021-06 Yes [id number] 5mg QD Take 1 M ethodi (NORVASC) 5 1-15 tablet (5 st mg tablet 00:00: mg total) Hos braulio 00 by mouth l daily. hydroCHLORO 2021-06 Yes [id number] 12.5mg QD Take 1 Methodi thiazide 1-[address] (HYDRODIURI 00:00: (12.5 mg Ho spita L) 12.5 MG 00 total) by l tablet mouth daily. hydroCHLORO No [id number] Take 1 Methodi thiazide 9-25 11-[address] (HYDRODIURI 00:00: 00:00 mouth once Hospita L) 12.5 MG 00 :00 daily l tablet amLODIPine No [id number] Take 1 Methodi (NORVASC) 5 9-25 11-[address] mg tablet 00:00: 00:00 mouth once H ospita 00 :00 daily l amLODIPine No [id number] 5mg QD Take 1 Methodi (NORVASC) 5 3-28 09-25 tablet (5 st mg tablet 00:00: 00:00 mg total) Ho spita 00 :00 by mouth l daily. hydroCHLORO No [id number] 12.5mg QD Take 1 [facility] thiazide -28 -[address] (HYDRODIURI 00:00: 00:00 (12.5 mg H ospita L) 12.5 MG 00 :00 total) by l tablet mouth daily. sodium,pota 2020-06- No Drink 1 [facility] ssium,mag 07-[address] sulfates 00:00: 00:00 directed Hosp osvaldo (Suprep 00 :00 for dose 1 l Bowel Prep and 1 Kit) bottle as 17.5-3.13-1 directed .6 gram for dose recon soln 2. gabapentin 2020-06 Yes 300mg QD Take 300 [facility] (NEURONTIN) 0-[address] 300 mg 00:00: mouth Hospita capsule 00 nightly. l hydroCHLORO No [id number] 12.5mg QD Take 1 Method[facility] thiazide 03-[address] (HYDRODIURI 00:00: 00:00 (12.5 mg H ospita L) 12.5 MG 00 :00 total) by l tablet mouth daily. amLODIPine No [id number] 5mg QD Take 1 Methodi (NORVASC) 5 03-16 tablet (5 st mg tablet 00:00: 00:00 mg total) Ho spita 00 :00 by mouth l daily. HYDROcodone Yes 1{tbl} Q8H Take 1 [facility] -acetaminop 2-[address] hen (NORCO) 00:00: mouth Hospi ta 5-325 mg 00 every 8 l per tablet (eight) hours as needed. prn Immunizations Ordered Immunization Filled Immunization Date Status Commen ts Source Name Name FLUCELVAX QUAD 2022-05-[address] 00:00[facility]00 [facility] 2021-08-06 Completed Methodis t MRNA VACCINATION 00:00:00 [facility] FLUCELVAX QUAD PF 2021-03-[address] 00:00:00 [facility] COVID19 2021-01-07 Completed [facility] 2020-12-09 Completed Method[facility] t MRNA VACCINATION 00:00:00 [facility] Zoster Vaccine 2020-10-01 Completed [facility] Recombinant 00:00:00 [facility] Tdap 2019-05-08 Completed [facility] 00:00:00 [facility] FLUBLOK QUAD PF 2019-05-08 Completed [facility] 00:00:00 Hospital Vital Signs Vital Name Observation Time Observation Value Comments Source Systolic blood 2022-05-03 19:41:00 136 mm[Hg] Method ist Hospital pressure Diastolic blood 2022-05-03 19:41:00 87 mm[Hg] [facility] pressure Heart rate 2022-05-03 19:41:00 82 /min [facility] Hospital Respiratory rate 2022-05-03 19:41:00 16 /min [facility] Body height 2022-05-03 19:41:00 165.1 cm [facility] Body weight 2022-05-03 19:41:00 110.043 kg [facility] BMI 2022-05-03 19:41:00 40.37 kg/m2 [facility] Oxygen saturation in 2022-05-03 19:41:00 100 /min [facility] Arterial blood by Pulse oximetry Body temperature 2021-06-30 18:50:00 36.5 Viktoriya Meth [facility] Procedures Procedure Date / Time Performing Clinician Source Performed COMPREHENSIVE METABOLIC 2022-05-03 20:28:00 [facility] PANEL LIPID PANEL 2022-05-03 20:28:00 [facility] COMPREHENSIVE METABOLIC 2021-09-13 20:52:00 [facility] PANEL TSH WITH REFLEX TO FREE 2021-09-13 20:52:00 [facility] T4 LIPID PANEL 2021-09-13 20:52:00 [facility] SURGICAL PATHOLOGY 2021-06-30 18:20:00 [facility] REQUEST COLONOSCOPY 2021-06-30 18:09:00 [facility] spital COVID-19 QUALITATIVE 2021-06-25 19:14:00 [facility] RT-PCR Plan of Care Planned Activity Planned Date Details Comments Source Future Scheduled 2022-05-17 HEPATITIS B VACCINES Met [facility] Test 15:22:23 (1 of 3 - 3-dose series) [code = HEPATITIS B VACCINES (1 of 3 - 3-dose series)] Future Scheduled 2022-05-17 Pneumococcal Vaccine: [facility] Test 15:22:23 Pediatrics (0 to 5 Years) and At-Risk Patients (6 to 64 Years) (1 - PCV) [code = Pneumococcal Vaccine: Pediatrics (0 to 5 Years) and At-Risk Patients (6 to 64 Years) (1 - PCV)] Future Scheduled 2022-05-17 Hepatitis C screening [facility] Test 15:22:23 (procedure) [code = 611817522] Future Scheduled 2022-05-17 Screening for [facility] Test 15:22:23 malignant neoplasm of cervix (procedure) [code = 575313924] Future Scheduled 2022-05-17 BREAST CANCER [facility] Test 15:22:23 SCREENING [code = BREAST CANCER SCREENING] Future Scheduled 2022-05-17 COVID-19 VACCINE (4 - Me [facility] Test 15:22:23 Booster for Moderna series) [code = COVID-19 VACCINE (4 - Booster for Moderna series)] Future Scheduled 2022-05-17 COLONOSCOPY SCREENING [facility] Test 15:22:23 [code = COLONOSCOPY SCREENING] Encounters Start End Encounter Admission Attending Care Care Encounter Source Date/Time Date/Time Type Type Clinicians Facility Department ID 2022-05-03 2022-05-03 Office Felicia, 1.2.840.1 [id number] Methodi 13:45:00 14:33:31 Visit Fernanda Watson 79342.1.[address] 3.430.2.7 Hospit a .3.609296 l .8 2022-05-03 2022-05-03 [id number] [place] 00:00:00 00:00:[address] [place] [facility] 2022-03-16 2022-03-16 Travel 1.2.840.1 [id number] [id number] Methodi 00:00:00 00:00:[address] 3.430.2.7 0.2.7.3.698 Ho spita .3.588516 084.8 l .8 2022 2022 Refill Felicia, 1.2.840.1 [id number] Methodi 00:00:00 00:00:00 Fernanda Watson [address]70.1.[address] 3.430.2.7 Hospit a .3.754573 l .8 2021-10-05 2021-10-05 Orders Frantz, 1.2.840.1 [id number] Methodi 00:00:00 00:00:00 Only Joann 18985.1.[address] 3.430.2.7 Hospit a .3.604378 l .8 2021-09-14 2021-09-14 Orders Felicia, 1.2.840.1 [id number] Methodi 00:00:00 00:00:00 Only Fernanda Watson 17957.1.[address] 3.430.2.7 Hospit a .3.728791 l .8 2021-09-13 2021-09-13 Office Felicia, 1.2.840.1 [id number] Methodi 13:30:00 14:02:14 Visit Fernanda Watson 92808.1.[address] 3.430.2.7 Hospit a .3.740730 l .8 2021-09-13 2021-09-13 Outpatient FELICIA, [facility] [id number] [place] 00:00:00 00:00:00 FERNANDA [place] [facility] 2021-09-13 2021-09-13 Travel 1.2.840.1 1.2.019.632 [id number] Methodi 00:00:00 00:00:[address] 3.430.2.7 0.2.7.3.698 spita .3.633285 084.8 l .8 2021-06-30 2021-06-30 Hospital [facility], 1.2.840.1 [id number] Methodi 09:10:00 14:17:00 Encounter Esperanza 34864.1.1 666 s t 3.430.2.7 Hospit a .3.982943 l .8 2021-06-30 2021-06-30 Anesthesia Daniel Benson 1.2.840.1 [id number] Methodi 12:09:00 12:50:00 Event Caroline Mills 35801.1.[address] 3.430.2.7 Hospit a .3.265183 l .8 2021-06-30 2021-06-30 Surgery [facility] 1.2.840.1 [id number] Methodi 10:45:00 11:30:[address] 3.430.2.7 Hospit a .3.949504 l .8 2021-06-30 2021-06-30 Outpatient JAMMA, [facility] 567 [id number] [place] 00:00:00 00:00:00 ESPERANZA [address] 2021-06-30 2021-06-30 Travel 1.2.840.1 1.2.519.316 [id number] Methodi 00:00:00 00:00:00 10708.1.1 350.1.13.43 462 3.430.2.7 0.2.7.3.698 spita .3.241321 084.8 l .8 2021-06-25 2021-06-25 Outpatient WYATT, [facility] [id number] [place] 00:00:00 00:00:[address] 2021-05-06 2021-05-06 Outpatient BERNABE, [facility] [id number] [place] 00:00:00 00:00:00 FERNANDA [address] 2021-03-16 2021-03-16 Outpatient BERNABE, [facility] [id number] [place] 00:00:00 00:00:00 FERNANDA [address] 2020-12-14 2020-12-14 Outpatient BERNABE, [facility] [id number] [place] 00:00:00 00:00:00 FERNANDA [address] 2020-09-11 2020-09-11 Outpatient BERNABE, [facility] [id number] [place] 00:00:00 00:00:00 FERNANDA [address] 2020-09-11 2020-09-11 Outpatient BERNABE, [facility] [id number] [place] 00:00:00 00:00:00 FERNANDA [address] 2019-07-30 2019-07-30 Outpatient CHU MARTEL [facility] [id number] [place] 00:00:00 00:00:[address] Results Test Description Test Time Test Comments Results Result Comments Source Comprehensive metabolic panel 2022-05-04 08:07:00 Test Item Value Reference Range Interpretation Comme nts Glucose (test code = 104 mg/dL 70-99 H 2345-7) BUN (test code = 3094-0) 16 mg/dL 6-24 Creatinine (test code = 0.92 mg/dL 0.57-1.00 2160-0) eGFR (test code = 8257) 72 mL/min/1.73 See_Comment [ Automated message] The system [facility] generated this result transmitted ref erence range: >=59. Th e reference range was not used to interpr et this result as normal/abnormal . BUN/creatinine ratio (test 03-11 code = 3097-3) Sodium (test code = 142 mmol/L 690-632 9587-2) Potassium (test code = 4.4 mmol/L 3.5-5.2 2823-3) Chloride (test code = 103 mmol/L 96-106 2075-0) CO2 (test code = 8-9) 23 mmol/L 20-29 Calcium (test code = 9.3 mg/dL 8.7-10.2 52827-5) Protein (test code = 7.5 g/dL 6.0-8.5 2885-2) Albumin, S (test code = 4.2 g/dL 3.8-4.9 1751-7) Globulin, total (test code 3.3 g/dL 1.5-4.5 = 69466-1) Albumin/globulin ratio 1.2-2.2 (test code = 1759-0) Total bilirubin (test code 0.3 mg/dL 0.0-1.2 = 1974-2) Alkaline phosphatase (test See_Comment [Automated message] code = 6768-6) The system [facility] generated this result transmitted ref erence range: 44 - 121 IU/L. The reference r alessia was not used to int erpret this result as normal/abnormal . AST (test code = 1920-8) See_Comment [A utomated message] The system [facility] generated this result transmitted ref erence range: 0 - 40 I U/L. The reference range was not used to interpr et this result as normal/abnormal . ALT (test code = 1742-6) See_Comment [A utomated message] The system [facility] generated this result transmitted ref erence range: 0 - 32 I U/L. The reference range was not used to interpr et this result as normal/abnormal . VALERIANO (test code = VALERIANO) Performed at: [address] [place] [address] [id number] Director: Liborio Santacruz MD, Phone: [phone] Lab Interpretation (test Abnormal code = 36630-7) [id number] Test Item Value Reference Range Interpretation Comments Cholesterol (test 225 mg/dL 100-199 H code = 2093-3) Triglycerides (test 90 mg/dL 0-149 code = 2571-8) HDL cholesterol (test 41 mg/dL See_Comment [Auto mated code = 2085-9) message] The system which generated this result transmitted reference range : >=39. The reference range was not used to interpret this result as normal/abnormal . VLDL cholesterol mikael 16 mg/dL 5-40 (test code = 05641-1) LDL Chol Calc ([facility]) 168 mg/dL 0-99 H (test code = 60388-5) Non-HDL cholesterol 184 mg/dL 0-129 H (test code = 76912-1) VALERIANO (test code = VALERIANO) Performed at: - [facility] [id number] Director: Liborio Santacruz MD, Phone: [phone] Lab Interpretation Abnormal (test code = 19168-3) [facility] reflex to [id number] 11:09:00 Test Item Value Reference Range Interpretation Comments TSH (test code See_Comment [Automated m essage] = 05271-4) The system whic h generated this result transmit fatoumata reference range : 0.450 - 4.500 uIU/mL. The reference range was not used to interpret this result as normal/abnormal . VALERIANO (test code Performed at: - = VALERIANO) [facility] [id number] Director: Liborio Santacruz MD, Phone: [phone] [facility] [id number] 20:29:23 Test Item Value Reference Range Interpretation Comments Case number (test code = [id number]) Surgical pathology See link below for report (test code = PDF Lab Report 225) Result status (test code This is Final Report = [id number]) for [id number] [facility] RNA [Presence] in Respiratory specimen by ISABEL with probe [id number] 22:20:47 Test Item Value Reference Range Interpretation Comments SARS-CoV-2 (COVID-19) RNA Not detected Not-Detected [Presence] in Respiratory specimen by ISABEL with probe detection (test code = 79733-9) Whether patient is employed in a healthcare setting (test code = 49684-5) Whether the patient has symptoms related to condition of interest (test code = 81221-3) Patient was hospitalized because of this condition (test code = 60551-9) Whether the patient was admitted to intensive care unit (ICU) for condition of interest (test code = 99964-0) Whether patient resides in a congregate care setting (test code = 59005-1) [facility]
--- NOTE | 2022-05-17 16:07 | RAD REPORT ---
EXAM DESCRIPTION: RAD - Chest Single View - 05/17/2022 4:02 pm CLINICAL HISTORY: fever, cough Chest pain. COMPARISON: Chest Single View dated 07/05/2019; Chest Pa And Lat (2 Views) dated 05/29/2019; Chest Si ngle View dated 05/10/2019; Chest Pa And Lat (2 Views) dated 01/30/2018 FINDINGS: Portable technique limits examination quality. The lungs are grossly clear. The heart is normal in size. No displaced fractures. IMPRESSION: No acute intrathoracic process suspected.
[2022-05-17] MEDS ORDERED: NA CHLORIDE 0.9% 500 ML ONE (16:16)
[2022-05-17 16:23] LABS: Absolute Lymphocytes (CBC) 1.5 K/uL (0.7-4.9); Hematocrit 44.8 % (36.0-45.0); Lymphocytes % 27.6 % (15.3-44.8); MCV 87.9 fL (80-100); MPV 8.5 fL (7.6-11.3); RBC Red Blood Cell Count 5.09 M/uL (3.86-4.86)
[2022-05-17 16:26] LABS: Protime INR 1.03
[2022-05-17 16:37] LABS: Potassium 3.5 mmol/L (3.5-5.1)
[2022-05-17 17:03] LABS: SARS-COV-2 RT PCR NEGATIVE (NEGATIVE)
[2022-05-17 17:14] LABS: Urine Blood Negative (Negative); Urine Glucose Negative (Negative); Urine Protein 1+ (Negative); Urine Specific Gravity 1.025 (1.005-1.030); Urine pH 5.5 (5.0-7.0)
--- NOTE | 2022-05-17 18:27 | ER ---
Nurse's Notes [facility] Name: Guadalupe Chapin Age: 57 yrs Sex: Female : 1965 Arrival Date: 05/17/2022 Time: 15:23 Bed 10 Private MD: Diagnosis: Cough;UTI/ Urinary tract infection, site not specified Presentation: 05/17 15:36 Chief complaint: Patient states: " I been feeling sick since the 05/08/22 I been having em6 cough, headache, diarrhea, N/V my symptoms haven't went away even with medication and I just feel weak.". Coronavirus screen: Client denies travel out of the [place] in the last 14 days. Ebola Screen: Patient negative for fever greater than or equal to 101.5 degrees Fahrenheit, and additional compatible Ebola Virus Disease symptoms. Initial Sepsis Screen: Does the patient meet any 2 criteria? No. Patient's initial sepsis screen is negative. Does the patient have a suspected source of infection? No. Patient's initial sepsis screen is negative. Risk Assessment: Do you want to hurt yourself or someone else? Patient reports no desire to harm self or others. Onset of symptoms was May 08, 2022. 15:36 Acuity: DEVIN 3 em6 15:36 Method Of Arrival: Ambulatory em6 Historical: - Allergies: 15:39 No Known Allergies; em6 - PMHx: 15:39 Hypertension; Rheumatoid Arthritis; em6 - Immunization history:: Adult Immunizations up to date. - Social history:: Smoking status: Patient denies any tobacco usage or history of. Patient uses. Screenin:36 Abuse screen: Denies threats or abuse. Nutritional screening: No deficits noted. em6 Tuberculosis screening: No symptoms or risk factors identified. 16:00 Fall Risk IV access (20 points). Total Alarcon Fall Scale indicates No Risk (0-24 pts). ld1 Assessment: 15:35 General: Appears uncomfortable, Behavior is cooperative. Pain: Denies pain. Neuro: em6 Level of Consciousness is awake, alert, obeys commands, Oriented to person, place, time, situation, Reports headache frontal area. Cardiovascular: Heart tones present Patient's skin is warm and dry. Respiratory: Reports shortness of breath cough that is Airway is patent Respiratory effort is even, unlabored, Respiratory pattern is regular, symmetrical, Breath sounds are clear bilaterally. GI: Reports diarrhea, nausea, vomiting. : No signs and/or symptoms were reported regarding the genitourinary system. EENT: No signs and/or symptoms were reported regarding the EENT system. Derm: No signs and/or symptoms reported regarding the dermatologic system. Musculoskeletal: Circulation, motion, and sensation intact. Range of motion: intact in all extremities. 16:39 Reassessment: Patient appears in no apparent distress at this time. No changes from ld1 previously documented assessment. Patient and/or family updated on plan of care and expected duration. Pain level reassessed. Patient is alert, oriented x 3, equal unlabored respirations, skin warm/dry/pink. 17:40 Reassessment: Patient appears in no apparent distress at this time. No changes from em6 previously documented assessment. Patient and/or family updated on plan of care and expected duration. Pain level reassessed. Patient is alert, oriented x 3, equal unlabored respirations, skin warm/dry/pink. Vital Signs: 15:36 BP 129 / 76; Pulse 93; Resp 20; Temp 98.7; Pulse Ox 94% on R/A; Weight 108.86 kg; em6 Height 5 ft. 5 in. (165.10 cm); Pain 0/10; 16:40 BP 132 / 74; Pulse 92; Resp 18; Pulse Ox 95% on R/A; em6 18:34 BP 128 / 72; Pulse 84; Resp 18; Pulse Ox 95% on R/A; em6 15:36 Body Mass Index 39.94 (108.86 kg, 165.10 cm) em6 ED Course: 15:23 Patient arrived in ED. am2 15:23 Elieser Luevano PA is PHCP. [facility] 15:23 Toño Corey MD is Attending Physician. jmm 15:26 Agueda Kunz, SAY is Primary Nurse. em6 15:38 Triage completed. em6 15:39 Arm band placed on. em6 15:39 Bed in low position. Call light in reach. Side rails up X 1. Pulse ox on. NIBP on. Warm em6 blanket given. 16:00 Inserted saline lock: 20 gauge in left antecubital area, using aseptic technique. Blood em6 collected. 16:03 Chest Single View XRAY In Process Unspecified. EDMS 16:21 COVID-19/FLU A+B Sent. em6 16:21 Lactate w/ 2H reflex if indic. Sent. em6 16:21 BMP Sent. em6 16:21 CBC with Diff Sent. em6 16:21 PT-INR Sent. em6 16:21 Blood Culture Adult (2) Sent. em6 18:35 No provider procedures requiring assistance completed. IV discontinued, intact, em6 bleeding controlled, No redness/swelling at site. Pressure dressing applied. Administered Medications: 16:21 Drug: NS 0.9% 500 ml Route: IV; Rate: bolus; Site: left antecubital; em6 17:00 Follow up: Response: No adverse reaction; IV Status: Completed infusion; IV Intake: em6 500ml Medication: 18:35 VIS not applicable for this client. em6 Intake: 17:00 IV: 500ml; Total: 500ml. em6 Outcome: 18:26 Discharge ordered by MD. [facility] 18:35 Discharged to home ambulatory. em6 18:35 Condition: stable 18:35 Discharge instructions given to patient, Instructed on discharge instructions, follow up and referral plans. medication usage, Demonstrated understanding of instructions, follow-up care, medications, Prescriptions given X 1. 18:35 Patient left the ED. em6 Signatures: Dispatcher [employer] EDMS Elieser Luevano PA PA jmm Moreno, Amanda am2 Brunilda Tanner, RN RN ld1 Agueda Kunz RN RN em6 Corrections: (The following items were deleted from the chart) 15:39 15:35 GI: No signs and/or symptoms were reported involving the gastrointestinal system. em6 em6 15:39 15:39 PMHx: Arthritis; em6 em6 15:39 15:39 PMHx: Pneumonia; em6 em6
--- NOTE | 2022-05-17 18:27 | EDPHYS ---
Physician Documentation [facility] Name: Guadalupe Chapin Age: 57 yrs Sex: Female : 1965 Arrival Date: 05/17/2022 Time: 15:23 Bed 10 Private MD: ED Physician Toño Corey HPI: 05/17 15:27 This 57 yrs old Black Female presents to ER via Ambulatory with complaints of Flu jmm Symptoms. 15:27 Onset: The symptoms/episode began/occurred gradually, 1 week(s) ago. Associated signs jmm and symptoms: Pertinent positives: cough, diarrhea, shortness of breath, vomiting. This is a 57 year old female with a history of htn, ra that presents to the ED with complaints of cough, sob, vomiting, diarrhea beginning approx 1 week ago. Patient states feeling dehydrated and weak. Symptoms have worsened. . Historical: - Allergies: 15:39 No Known Allergies; em6 - PMHx: 15:39 Hypertension; Rheumatoid Arthritis; em6 - Immunization history:: Adult Immunizations up to date. - Social history:: Smoking status: Patient denies any tobacco usage or history of. Patient uses. ROS: 15:27 Neck: Negative for injury, pain, and swelling, Back: Negative for injury and pain. jmm 15:27 Constitutional: Positive for body aches, chills, fatigue. 15:27 Respiratory: Positive for cough, shortness of breath. 15:27 Abdomen/GI: Positive for nausea, diarrhea, Negative for abdominal pain. 15:27 All other systems are negative. Exam: 15:27 Constitutional: This is a well developed, well nourished patient who is awake, alert, jmm and in no acute distress. Head/Face: atraumatic. Eyes: EOMI, no conjunctival erythema appreciated ENT: Moist Mucus Membranes Neck: Trachea midline, Supple Chest/axilla: Normal chest wall appearance and motion. Cardiovascular: Regular rate and rhythm. No edema appreciated Respiratory: Normal respirations, no respiratory distress appreciated Abdomen/GI: Non distended Back: Normal ROM Skin: General appearance color normal MS/ Extremity: Moves all extremities, no obvious deformities appreciated, no edema noted to the lower extremities Neuro: Awake and alert Psych: Behavior is normal, Mood is normal, Patient is cooperative and pleasant Vital Signs: 15:36 BP 129 / 76; Pulse 93; Resp 20; Temp 98.7; Pulse Ox 94% on R/A; Weight 108.86 kg; em6 Height 5 ft. 5 in. (165.10 cm); Pain 0/10; 16:40 BP 132 / 74; Pulse 92; Resp 18; Pulse Ox 95% on R/A; em6 18:34 BP 128 / 72; Pulse 84; Resp 18; Pulse Ox 95% on R/A; em6 15:36 Body Mass Index 39.94 (108.86 kg, 165.10 cm) em6 MDM: 15:27 Patient medically screened. [facility] 18:25 Data reviewed: vital signs, nurses notes. Counseling: I had a detailed discussion with [facility] the patient and/or guardian regarding: the historical points, exam findings, and any diagnostic results supporting the discharge/admit diagnosis, lab results, radiology results, the need for outpatient follow up, to return to the emergency department if symptoms worsen or persist or if there are any questions or concerns that arise at home. ED course: Patient states feeling much better. Advised to follow up with pcp and otherwise given strict return precautions. patient understood and agrees with the plan of care. . 05/17 15:36 Order name: CBC with Diff; Complete Time: 16:24 [facility] 05/17 15:36 Order name: BMP; Complete Time: 16:39 [facility] 05/17 15:36 Order name: Lactate w/ 2H reflex if indic.; Complete Time: 16:42 [facility] 05/17 15:36 Order name: COVID-19/FLU A+B; Complete Time: 17:06 [facility] 05/17 15:48 Order name: Blood Culture Adult (2) [facility] 05/17 15:48 Order name: PT-INR; Complete Time: 16:26 [facility] 05/17 15:36 Order name: Saline Lock; Complete Time: 16:21 [facility] 05/17 15:36 Order name: Chest Single View XRAY; Complete Time: 16:09 [facility] 05/17 15:59 Order name: Urine Dipstick-Ancillary (obtain specimen); Complete Time: 17:16 [facility] 05/17 17:15 Order name: Urine Dipstick-Ancillary; Complete Time: 17:16 EDMS Administered Medications: 16:21 Drug: NS 0.9% 500 ml Route: IV; Rate: bolus; Site: left antecubital; em6 17:00 Follow up: Response: No adverse reaction; IV Status: Completed infusion; IV Intake: em6 500ml Disposition Summary: 05/17/22 18:26 Discharge Ordered Location: Home [facility] Condition: Stable [facility] Diagnosis - Cough m - UTI/ Urinary tract infection, site not specified [facility] Followup: m - With: Private Physician - When: 2 - 3 days - Reason: Recheck today's complaints, Continuance of care, Re-evaluation by your physician Discharge Instructions: - Discharge Summary Sheet [facility] - Urinary Tract Infection, Adult jm - Cough, Adult [facility] Forms: - Medication Reconciliation Form [facility] - Thank You Letter [facility] - Antibiotic Education [facility] - Prescription Opioid Use [facility] Prescriptions: - promethazine-DM - take 10 milliliter by ORAL route every 4-6 hours As needed; 200 milliliter; jmm Refills: 0, Product Selection Permitted - cefdinir 300 mg Oral capsule - take 1 capsule by ORAL route every 12 hours for 10 days; 20 capsule; Refills: [facility] 0, Product Selection Permitted Addendum: 05/20/2022 14:22 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 I agree with assessment j r11 and care plan and confirm the diagnosis (es) above. Attestation: The patient's history, exam findings, diagnostics, and a summary of any interventions or procedures was reviewed in detail with Elieser HODGES. Signatures: Dispatcher [employer] EDMN Elieser Luevano PA PA [facility] Toño Corey MD MD [id number] Agueda Kunz RN RN em6 Corrections: (The following items were deleted from the chart) 05/17 15:39 15:39 PMHx: Arthritis; em6 em6 15:39 15:39 PMHx: Pneumonia; em6 em6
[2022-05-17 18:44] VITALS: TEMP 98.7
[2022-05-17 18:49] VITALS: O2SAT 95
[2022-05-17 18:55] VITALS: BP 128/72
== END 2022-05-17 18:35 | disposition home or self-care (01) ==
LOC: ER 15:19
DX: N39.0 Urinary tract infection, site not specified (principal); R05.9 Cough, unspecified; I10 Essential (primary) hypertension; Z20.822 Contact with and (suspected) exposure to COVID-19
CPT/HCPCS: 87040 ×2; 85025; 80048; 36415; 85610; 83605; 81003; 0240U; 71045; 96360; 99284; J7040

== ENCOUNTER 2023-04-17 20:33 | Emergency (ER) | payer OTHER ==
--- OUTSIDE RECORDS SUMMARY | 2023-04-17 20:37 | XMS REPORT | Continuity of Care Document ---
:1965 Author Organization [facility] t Address [address] [place] [address]. [address] [place] [address] Care Team Providers Name Role Phone Fernanda Duarte MD Primary Care Physician [phone] Jose Angel Carranza MD Attending Clinician Gopi RNJoi Attending Clinician Unavailable Abel Jewell MD Attending Clinician Savita Gilbert Attending Clinician Kimi Marin Attending Clinician Fernanda Duarte MD Attending Clinician Renee Garcia MA Attending Clinician Unavailable Provider, Unknown Attending Clinician Unavailable Joann Landry MA Attending Clinician Unavailable Esperanza Schneider MD Attending Clinician Daniel Benson MD Attending Clinician Caroline Mills NP Attending Clinician MD ESPERANZA SCHNEIDER Attending Clinician Unavailable CHU MARTEL Attending Clinician Unavailable JOSE ANGEL CARRANZA Admitting Clinician Unavailable ESPERANZA SCHNEIDER Admitting Clinician Unavailable MD ESPERANZA SCHNEIDER Admitting Clinician Unavailable Payers Payer Name Policy Type Policy Number Effective Date Expiration Date S ource Problems Condition Condition Condition Status Onset Resolution Last Treating Co mments Source Name Details Category Date Date Treatment Clinician Date Pre-diabet Pre-diabet Disease Active M ethodi es es 12-06 00:00: Hospita 00 l Class 2 Class 2 Disease Active Methodi obesity obesity 12-05 due to due to 00:00: Hospita excess excess 00 l calories calories without without serious serious comorbidit comorbidit y with y with body mass body mass index index (BMI) of (BMI) of 37.0 to 37.0 to 37.9 in 37.9 in adult adult Primary Primary Disease Active Overview: Meth [facility] osteoarthr osteoarthr 07-[address] itis of itis of 00:00: g of this Hospi ta right knee right knee 00 note l might be different from the original. Added automatic ally from request for surgery [id number] Hyperglyce Hyperglyce Disease Active 2021-06 M ethodi glenn glenn 07-04 00:00: Hospita 00 l Colon Colon Disease Active 2020-06 Overview: Method i cancer cancer 07-[address] screening screening 00:00: g of this H ospita 00 note l might be different from the original. Added automatic ally from request for surgery [id number] Lupus Lupus Disease Active Methodi 09-13 st 00:00: Hospita 00 l Rheumatoid Rheumatoid Disease [...] Viral Disease Active Methodi pneumonia pneumonia 07-03 00:00: Hospita 00 l Hypertensi Hypertensi Disease Active M ethodi on on Hospita l Hyperlipid Hyperlipid Disease Active M [...] Date Stop Date Source Natural father Diabetes [facility] Natural father Hypertension [facility] Natural mother Colon polyps [facility] mother Diabetes [facility] Natural mother Heart disease [facility] Natural mother Hypertension [facility] Natural mother Kidney disease [facility] Social History Social Habit Start Date Stop Date Quantity Comments Source Sexual orientation 2020-09-04 Heterosexual Meth odist 17:31:30 (finding) Hospital History of tobacco Current smoker [facility] use Hospital Alcohol intake 2022-12-28 2022-12-28 Current drinker of [facility]ist 00:00:00 00:00:00 alcohol (finding) Hospita l History of Social 2022-12-28 2022-12-[address] function 00:00:00 00:00:00 Hospital Alcohol Comment 2022-12-07 2022-12-07 SOCIAL [facility] 00:00:00 00:00:00 Hospital Cigarettes smoked 2022-12-05 2022-12-[address] current (pack per 00:00:00 00:00:00 Hospita l day) - Reported Tobacco use and 2022-12-05 2022-12-05 Smokeless tobacco [facility] exposure 00:00:00 00:00:00 non-user Hospital Sex Assigned At [birth year] [facility] 00:00:00 00:00:00 Hospital Smoking Status Start Date Stop Date Source Ex-smoker 2022-12-05 00:00:00 2022-12-05 00:00:00 [facility] Medications Ordered Filled Start Stop Current Ordering Indication Dosage Frequency Signature Comments Components Source Medication Medication Date Date Medication? Clinician (SIG) Name Name acetaminoph Yes 650mg QD Take 650 M ethodi en (TYLENOL 7-[address] ORAL) 17:45: mouth Hospita 34 daily. l NEEDED nut.tx.comp 2022- No 1{bottl Q.5D Take 1 Methodi . immune 12-22 e} Bottle by st systm,reg 00:00: 04:59 mouth 2 Hosp osvaldo (Impact 00 :00 (two) l Advanced times a Recovery) day for 5 0.1 days. gram-1.12 kcal/mL liquid celecoxib 2022- No 200mg QD Take 1 Meth [facility] (CeleBREX) 12-21 08-[address] 200 MG 00:00: 04:59 (200 mg Hospita capsule 00 :00 total) by l mouth daily for 30 days. amLODIPine Yes [id number] Take 1 M ethodi (NORVASC) 5 6-[address] mg tablet 00:00: mouth once Ho spita 00 daily l hydroCHLORO Yes [id number] Take 1 Methodi thiazide 6-[address] (HYDRODIURI 00:00: mouth once Hospita L) 12.5 MG 00 daily l tablet amLODIPine 2021-06 Yes [id number] 5mg QD Take 1 M ethodi (NORVASC) 5 1-15 tablet (5 st mg tablet 00:00: mg total) Hos braulio 00 by mouth l daily. hydroCHLORO 2021-06 Yes [id number] 12.5mg QD Take 1 Methodi thiazide 1-[address] (HYDRODIURI 00:00: (12.5 mg Ho spita L) 12.5 MG 00 total) by l tablet mouth daily. amLODIPine 2021-06- No [id number] 5mg QD Take 1 Methodi (NORVASC) 5 1-15 06-22 tablet (5 st mg tablet 00:00: 00:00 mg total) Ho spita 00 :00 by mouth l daily. hydroCHLORO 2021-06- No [id number] 12.5mg QD Take 1 Methodi thiazide 1-15 06-[address] (HYDRODIURI 00:00: 00:00 (12.5 mg H ospita L) 12.5 MG 00 :00 total) by l tablet mouth daily. hydroCHLORO 2021- No [id number] Take 1 Methodi thiazide 9-25 11-[address] (HYDRODIURI 00:00: 00:00 mouth once Hospita L) 12.5 MG 00 :00 daily l tablet amLODIPine 2021- No [id number] Take 1 Methodi (NORVASC) 5 9-25 11-[address] mg tablet 00:00: 00:00 mouth once H ospita 00 :00 daily l hydroCHLORO 2021- No [id number] Take 1 Methodi thiazide 03-13 11-[address] (HYDRODIURI 00:00: 00:00 mouth once Hospita L) 12.5 MG 00 :00 daily l tablet amLODIPine 2021- No [id number] Take 1 Methodi (NORVASC) 5 03-13 11-[address] mg tablet 00:00: 00:00 mouth once H ospita 00 :00 daily l amLODIPine 2021- No [id number] 5mg QD Take 1 Methodi (NORVASC) 5 09-13- tablet (5 st mg tablet 00:00: 00:00 mg total) Ho spita 00 :00 by mouth l daily. hydroCHLORO 2021- No [id number] 12.5mg QD Take 1 Methodi thiazide 09-[address] (HYDRODIURI 00:00: 00:00 (12.5 mg [...] 00:00: mouth Hospita capsule 00 nightly. l gabapentin 2020-06 Yes 300mg QD Take 1 Meth [facility] (NEURONTIN) 0-[address] 300 mg 00:00: (300 mg Hospita capsule 00 total) by l mouth nightly. hydroCHLORO 2021- No [id number] 12.5mg QD Take 1 Methodi thiazide 03-[address] (HYDRODIURI 00:00: 00:00 (12.5 mg H ospita L) 12.5 MG 00 :00 total) by l tablet mouth daily. amLODIPine 2021- No [id number] 5mg QD Take 1 Methodi (NORVASC) 5 03-16 tablet (5 st mg tablet 00:00: 00:00 mg total) Ho spita 00 :00 by mouth l daily. HYDROcodone Yes 1{tbl} Q8H Take 1 Me [facility] -acetaminop 2-[address] hen (NORCO) 00:00: mouth Hospi ta 5-325 mg 00 every 8 l per tablet (eight) hours as needed. prn HYDROcodone Yes 1{tbl} Q8H Take 1 Me thodi -acetaminop 2-[address] hen (NORCO) 00:00: mouth Hospi ta 5-325 mg 00 every 8 l per tablet (eight) hours as needed. prn Immunizations Ordered Filled Immunization Date Status Comments [facility] Immunization Name Name FLUCELVAX QUAD PF 2022-05-[address] 00:00[facility] 2021-08-06 Completed Methodis t MRNA VACCINATION 00:00:00 [facility] FLUCELVAX QUAD PF 2021-03-[address] 00:00:00 [facility] COVID19 2021-01-07 Completed Methodis t MRNA VACCINATION 00:00:00 [facility] 2020-12-09 Completed Methodis t MRNA VACCINATION 00:00:00 [facility] Zoster Vaccine 2020-10-01 Completed [facility] Recombinant 00:00:00 [facility] Tdap 2019-05-08 Completed Christian 00:00:00 [facility] FLUBLOK QUAD PF 2019-05-08 Completed Christian 00:00:00 [facility] FLUCELVAX QUAD PF Unknown Completed Methodi [place] [address] Unknown Completed Methodis t MRNA VACCINATION [facility] FLUCELVAX QUAD PF Unknown Completed Method[facility] Unknown Completed Christian [facility] FLUBLOK QUAD PF Unknown [facility] Methodis t MRNA VACCINATION [place] [address] Unknown Completed Methodis t MRNA VACCINATION [facility] Zoster Vaccine Unknown Completed [facility] Vital Signs Vital Name Observation Time Observation Value Comments Source Systolic blood 2022-12-27 20:27:00 151 mm[Hg] [facility] pressure Diastolic blood 2022-12-27 20:27:00 94 mm[Hg] [facility] pressure Heart rate 2022-12-27 20:27:00 62 /min [facility] Body temperature 2022-12-27 20:27:00 36.17 Viktoriya [facility] Respiratory rate 2022-12-27 20:27:00 19 /min [facility] Oxygen saturation in 2022-12-27 20:27:00 100 /min [facility] Arterial blood by Pulse oximetry Body weight 2022-12-27 13:54:00 102.967 kg [facility] BMI 2022-12-27 13:54:00 37.77 kg/m2 [facility] Body height 2022-12-07 16:31:00 165.1 cm [facility] Systolic blood 2022-05-03 19:41:00 136 mm[Hg] [facility] pressure Diastolic blood 2022-05-03 19:41:00 87 mm[Hg] [facility] pressure Heart rate 2022-05-03 19:41:00 82 /min [facility] Respiratory rate 2022-05-03 19:41:00 16 /min [facility] Body height 2022-05-03 19:41:00 165.1 cm [facility] Body weight 2022-05-03 19:41:00 110.043 kg [facility] BMI 2022-05-03 19:41:00 40.37 kg/m2 [facility] Oxygen saturation in 2022-05-03 19:41:00 100 /min [facility] Arterial blood by Pulse oximetry Body temperature 2021-06-30 18:50:00 36.5 Viktoriya [facility] Procedures Procedure Date / Time Performing Clinician Source Performed XR KNEE 3 VW RIGHT 2023-01-11 19:05:20 [facility] XR KNEE 1 OR 2 VW RIGHT 2022-12-27 19:33:[facility] ARTHROPLASTY, KNEE, TOTAL 2022-12-27 16:19:00 [facility] Jose Angel Donna [facility] ANESTHESIA SPINAL BLOCK 2022-12-27 15:20:19 [facility] HC INJ NERVE BLOCK 2022-12-27 15:20:00 [facility] FEMORAL CONTIN W IMG GUID POC GLUCOSE 2022-12-27 14:21:00 Jose Angel Carranza spital ABO/RH 2022-12-27 14:10:00 Fran Cortez [facility] spital TYPE AND SCREEN 2022-12-07 17:07:00 Jose Angel Carranza spital ECG PRE/POST OP 2022-12-07 16:18:27 Jose Angel Carranza spital CBC WITH PLATELET AND 2022-12-05 [facility]IVE METABOLIC 2022-12-05 19:11:00 [facility] PANEL ABO/RH 2022-12-05 19:11:00 [facility] HEMOGLOBIN A1C 2022-12-05 19:11:00 [facility] XR KNEE AP STANDING 2022-07-20 19:41:28 Tiffany [facility] BILATERAL XR KNEE 1 OR 2 VW RIGHT 2022-07-20 19:40:16 Jose Angel Carranza [facility] COMPREHENSIVE METABOLIC 2022-05-03 20:28:00 [facility] PANEL LIPID PANEL 2022-05-03 20:28:00 [facility] COMPREHENSIVE METABOLIC 2021-09-13 20:52:00 [facility] PANEL TSH WITH REFLEX TO FREE 2021-09-13 20:52:00 [facility] T4 LIPID PANEL 2021-09-13 20:52:00 [facility] SURGICAL PATHOLOGY 2021-06-30 18:20:00 [facility] REQUEST COLONOSCOPY 2021-06-30 18:09:00 [facility] COVID-19 QUALITATIVE 2021-06-25 19:14:00 [employer] RT-PCR Plan of Care Planned Activity Planned Date Details Comments Source Future Scheduled 2023-04-13 Screening for [facility] Test 19:39:39 malignant neoplasm of colon (procedure) [code = 678783397] Future Scheduled 2023-04-13 Screening for [facility] Test 19:39:39 malignant neoplasm of colon (procedure) [code = 327557248] Future Scheduled 2023-04-13 Screening for [facility] Test 19:39:39 malignant neoplasm of colon (procedure) [code = 782393121] Future Scheduled 2023-04-13 Pneumococcal Vaccine: [facility] Test 19:39:39 Pediatrics (0 to 5 Years) and At-Risk Patients (6 to 64 Years) (1 - PCV) [code = Pneumococcal Vaccine: Pediatrics (0 to 5 Years) and At-Risk Patients (6 to 64 Years) (1 - PCV)] Future Scheduled 2023-04-[address] [facility] Test 19:39:39 (procedure) [code = 592465623] Future Scheduled 2023-04-13 Screening for [facility] Test 19:39:39 malignant neoplasm of cervix (procedure) [code = 187859206] Future Scheduled 2023-04-13 BREAST CANCER [facility] Test 19:39:39 SCREENING [code = BREAST CANCER SCREENING] Future Scheduled 2023-04-13 COVID-19 VACCINE (4 - [facility] Test 19:39:39 season) [code = COVID-19 VACCINE (4 - season)] Future Scheduled 2023-04-13 INFLUENZA VACCINE (#1) [facility] Test 19:39:39 [code = INFLUENZA VACCINE (#1)] Future Scheduled 2023-04-13 Screening for [facility] Test 19:39:39 malignant neoplasm of colon (procedure) [code = 772077404] Future Scheduled 2023-04-13 Screening for [facility] Test 19:39:39 malignant neoplasm of colon (procedure) [code = 184010671] Future Scheduled 2022-05-17 HEPATITIS B VACCINES [facility] Test 15:22:23 (1 of 3 - 3-dose series) [code = HEPATITIS B VACCINES (1 of 3 - 3-dose series)] Future Scheduled 2022-05-17 Pneumococcal Vaccine: [facility] Test 15:22:23 Pediatrics (0 to 5 Years) and At-Risk Patients (6 to 64 Years) (1 - PCV) [code = Pneumococcal Vaccine: Pediatrics (0 to 5 Years) and At-Risk Patients (6 to 64 Years) (1 - PCV)] Future Scheduled 2022-05-[address] [facility] Test 15:22:23 (procedure) [code = 925935701] Future Scheduled 2022-05-17 Screening for [facility] Test 15:22:23 malignant neoplasm of cervix (procedure) [code = 639688233] Future Scheduled 2022-05-17 BREAST CANCER [facility] Test 15:22:23 SCREENING [code = BREAST CANCER SCREENING] Future Scheduled 2022-05-17 COVID-19 VACCINE (4 - [facility] Test 15:22:23 Booster for Moderna series) [code = COVID-19 VACCINE (4 - Booster for Moderna series)] Future Scheduled 2022-05-[address] [facility] Test 15:22:23 [code = COLONOSCOPY SCREENING] Encounters Start End Encounter Admission Attending Care Care Encounter Source Date/Time Date/Time Type Type Clinicians Facility Department ID 2023-02-22 2023-02-22 Office Carranza, Jose Angel 1.2.840.1 [id number] Methodi 14:00:00 14:14:54 Visit A. [address]95.1.[address] 3.430.2.7 Hospit a .3.187286 l .8 2023-02-22 2023-02-22 Outpatient CARRANZA, JOSE ANGEL [facility] [id number] [place] 00:00:00 00:00:[address] 2023-02-08 2023-02-08 Office Carranza, Jose Angel 1.2.840.1 [id number] Methodi 13:00:00 13:11:44 Visit A. 71372.1.[address] 3.430.2.7 Hospit a .3.414902 l .8 2023-02-08 2023-02-08 Outpatient CARRANZA, JOSE ANGEL [facility] [id number] [place] 00:00:00 00:00:[address] 2023-01-11 2023-01-11 Office Carranza, Jose Angel 1.2.840.1 [id number] Methodi 14:00:00 14:36:10 Visit A. 90630.1.[address] 3.430.2.7 Hospit a .3.388374 l .8 2023-01-11 2023-01-11 Outpatient CARRANZA, JOSE ANGEL [facility] [id number] [place] 00:00:00 00:00:[address] 2023-01-11 2023-01-11 Outpatient JOSE ANGEL CARRANZA [facility] [id number] [place] 00:00:00 00:00:[address] 2022-12-28 2022-12-28 Telephone Nguyễn, 1.2.840.1 [id number] Methodi 00:00:00 00:00:[address] 3.430.2.7 Hospit a .3.384569 l .8 2022-12-27 2022-12-27 Hospital Jose Angel Carranza 1.2.840.1 [id number] Methodi 08:13:00 17:45:00 Encounter A. 10262.1.[address] 3.430.2.7 Hospit a .3.971635 l .8 2022-12-27 2022-12-27 Anesthesia Abel Jewell 1.2.840.1 [id number] Methodi 11:15:00 13:57:00 Event Chip Nathanelisse 71280.1.[address] 3.430.2.7 Hospit a .3.475807 l .8 2022-12-27 2022-12-27 Surgery Jose Angel Carranza 1.2.840.1 [id number] Methodi 10:25:00 13:15:[address] 3.430.2.7 Hospit a .3.558876 l .8 2022-12-27 2022-12-27 Outpatient JOSE ANGEL CARRANZA [facility] [id number] [place] 00:00:00 00:00:[address] 2022-12-21 2022-12-21 Office Marlen, 1.2.840.1 [id number] Methodi 10:30:00 13:11:53 Visit Kimi Rosalie 05695.1.[address] 3.430.2.7 Hospit a .3.437301 l .8 2022-12-21 2022-12-21 Outpatient [facility] [id number] [place] 00:00:00 00:00:[address] 2022-12-08 2022-12-08 Refill Felicia, 1.2.840.1 [id number] Methodi 00:00:00 00:00:00 Fernanda Watson [address]102.1.[address] 3.430.2.7 Hospit a .3.236999 l .8 2022-12-07 2022-12-07 Pre-Admiss Jose Angel Carranza 1.2.840.1 [id number] Methodi 11:00:00 12:00:[address] Testing 3.430.2.7 Hospit a .3.994734 l .8 2022-12-07 2022-12-07 Outpatient JOSE ANGEL CARRANZA [facility] [id number] [place] 00:00:00 00:00:[address] 2022-12-07 2022-12-07 Outpatient JOSE ANGEL CARRANZA [facility] [id number] [place] 00:00:00 00:00:[address] 2022-12-05 2022-12-05 Office Felicia, 1.2.840.1 [id number] Methodi 13:30:00 14:16:21 Visit Fernanda Watson 63357.1.[address] 3.430.2.7 Hospit a .3.501952 l .8 2022-12-05 2022-12-05 Outpatient UDARTE [facility] [id number] [place] 00:00:00 00:00:00 FERNANDA [address] 2022-11-10 2022-11-10 Orders Jose, 1.2.840.1 [id number] Methodi 00:00:00 00:00:00 Only Renee 80985.1.[address] 3.430.2.7 Hospit a .3.082300 l .8 2022-10-05 2022-10-05 Orders Jose, 1.2.840.1 [id number] Methodi 00:00:00 00:00:00 Only Renee 08313.1.[address] 3.430.2.7 Hospit a .3.582141 l .8 2022-10-04 2022-10-04 Orders Duarte, 1.2.840.1 [id number] Methodi 00:00:00 00:00:00 Only Fernanda Watson 23082.1.[address] 3.430.2.7 Hospit a .3.161642 l .8 2022-07-22 2022-07-22 Documentat Provider, 1.2.840.1 [id number] Methodi 00:00:00 00:00:00 ion Unknown 58683.1.[address] 3.430.2.7 Hospit a .3.797939 l .8 2022-07-22 2022-07-22 Transcribe CarranzaJose Angel 1.2.840.1 [id number] Methodi 00:00:00 00:00:00 Orders WinterDonna 46150.1.[address] 3.430.2.7 Hospit a .3.285582 l .8 2022-07-20 2022-07-20 Office Fernanda Duarte 1.2.840.1 [id number] Methodi 13:40:00 14:20:28 Visit Jose Angel Carranza 01668.1.[address] 3.430.2.7 Hospit a .3.514628 l .8 2022-07-20 2022-07-20 Outpatient FELICIA [facility] [id number] [place] 00:00:00 00:00:00 FERNANDA [address] 2022-07-20 2022-07-20 Outpatient JOSE ANGEL CARRANZA [facility] [id number] [place] 00:00:00 00:00:[address] 2022-07-20 2022-07-20 Outpatient JOSE ANGEL CARRANZA [facility] [id number] [place] 00:00:00 00:00:[address] 2022-07-20 2022-07-20 Travel 1.2.840.1 1.2.524.913 [id number] Methodi 00:00:00 00:00:[address] 3.430.2.7 0.2.7.3.698 Ho spita .3.385204 084.8 l .8 2022-07-19 2022-07-19 Telephone Duarte, 1.2.840.1 [id number] Methodi 00:00:00 00:00:00 Fernanda Watson 19779.1.[address] 3.430.2.7 Hospit a .3.024780 l .8 2022-05-03 2022-05-03 Office Duarte, 1.2.840.1 [id number] Methodi 13:45:00 14:33:31 Visit Fernanda Watson 84086.1.[address] 3.430.2.7 Hospit a .3.509220 l .8 2022-05-03 2022-05-03 Office Duarte, 1.2.840.1 [id number] Methodi 13:45:00 14:33:31 Visit Fernanda Watson 43574.1.[address] 3.430.2.7 Hospit a .3.006773 l .8 2022-03-16 2022-03-16 Travel 1.2.840.1 1.2.480.561 [id number] Methodi 00:00:00 00:00:[address] 3.430.2.7 0.2.7.3.698 Ho spita .3.665453 084.8 l .8 2022 2022 Refill Duarte, 1.2.840.1 [id number] Methodi 00:00:00 00:00:00 Fernanda Watson 17919.1.[address] 3.430.2.7 Hospit a .3.535365 l .8 2021-10-05 2021-10-05 Orders Frantz, 1.2.840.1 [id number] Methodi 00:00:00 00:00:00 Only Joann 71056.1.[address] 3.430.2.7 Hospit a .3.244789 l .8 2021-09-14 2021-09-14 Orders Duarte, 1.2.840.1 [id number] Methodi 00:00:00 00:00:00 Only Fernanda Watson 13268.1.[address] 3.430.2.7 Hospit a .3.248050 l .8 2021-09-13 2021-09-13 Office Duarte, 1.2.840.1 [id number] Methodi 13:30:00 14:02:14 Visit Fernanda Watson 81280.1.[address] 3.430.2.7 Hospit a .3.746668 l .8 2021-09-13 2021-09-13 Travel 1.2.840.1 1.2.863.255 [id number] [facility]i 00:00:00 00:00:[address] 3.430.2.7 0.2.7.3.698 Ho spita .3.107742 084.8 l .8 2021-06-30 2021-06-30 [facility], 1.2.840.1 [id number] Methodi 09:10:00 14:17:00 Encounter Esperanza 17562.1.1 [address] 3.430.2.7 Hospit a .3.267671 l .8 2021-06-30 2021-06-30 Anesthesia Daniel Benson 1.2.840.1 [id number] Methodi 12:09:00 12:50:00 Event Caroline Mills 00877.1.[address] 3.430.2.7 Hospit a .3.723139 l .8 2021-06-30 2021-06-30 Surgery [facility], 1.2.840.1 [id number] Methodi 10:45:00 11:30:[address] 3.430.2.7 Hospit a .3.175839 l .8 2021-06-30 2021-06-30 Travel 1.2.840.1 1.2.060.729 [id number] Methodi 00:00:00 00:00:00 67097.1.1 350.1.13.43 2 3.430.2.7 0.2.7.3.698 spita .3.839231 084.8 l .8 2021-06-25 2021-06-25 Outpatient JAMMA, [facility] [id number] [place] 00:00:00 00:00:00 ESPERANZA 571 Metho di 2021-05-06 2021-05-06 Outpatient DUARTE, [facility] [id number] [place] 00:00:00 00:00:[address] FERNANDA [address] 2021-03-16 2021-03-16 Outpatient DUARTE, [facility] [id number] [place] 00:00:00 00:00:00 FERNANDA [address] 2020-12-14 2020-12-14 Outpatient DUARTE, [facility] [id number] [place] 00:00:00 00:00:00 FERNANDA [address] 2020-09-11 2020-09-11 Outpatient DUARTE, [facility] [id number] [place] 00:00:00 00:00:00 FERNANDA [address] 2020-09-11 2020-09-11 Outpatient DUARTE, [facility] [id number] [place] 00:00:00 00:00:00 FERNANDA [address] 2019-07-30 2019-07-30 Outpatient CHU MARTEL [facility] [id number] [place] 00:00:00 00:00:[address] Results Test Description Test Time Test Comments Results Result Comments Source POC glucose 2022-12-27 14:22:00 Test Item Value Reference Range Interpretation Comme nts POC glucose (test code = 93 mg/dL 65-99 Ope rator Name: Lorenzo Roldan [id number]) ID: [id number] [facility] Pre/Post [id number] 06:14:59 Test Item Value Reference Range Interpretation Comments Ventricular rate (test 68 code = 253) Atrial rate (test code 68 = 255) [place] interval (test code 144 = 266) QRSD interval (test 74 code = 260) QT interval (test code 406 = 264) QTC interval (test code 431 = 265) P axis 1 (test code = 66 267) QRS axis 1 (test code = 69 268) T wave axis (test code 69 = 270) EKG impression (test Normal sinus code = 273) rhythm-Normal ECG-No previous ECGs available-Electronical ly Signed By Gorge English MD (2012) on 12/08/2022 1:14:56 AM [facility] Areaprehensive metabolic [id number] 20:11:00 Test Item Value Reference Range Interpretation Comments Glucose (test code = 104 mg/dL 70-99 H 2345-7) BUN (test code = 13 mg/dL 6-24 3094-0) Creatinine (test code 0.96 mg/dL 0.57-1.00 = 2160-0) eGFR (test code = 68 mL/min/1.73 >=59 64776-9) BUN/creatinine ratio 14 9-23 (test code = 3097-3) Sodium (test code = 143 mmol/L 043-637 5000-2) Potassium (test code 3.5 mmol/L 3.5-5.2 = 2823-3) Chloride (test code = 104 mmol/L 96-106 2075-0) CO2 (test code = 27 mmol/L 20-29 2027-9) Calcium (test code = 9.6 mg/dL 8.7-10.2 42076-7) Protein (test code = 7.9 g/dL 6.0-8.5 2885-2) Albumin (test code = 4.2 g/dL 3.8-4.9 1751-7) Globulin, total (test 3.7 g/dL 1.5-4.5 code = 04306-6) Albumin/globulin 1.1 1.2-2.2 L ratio (test code = 1759-0) Total bilirubin (test 0.6 mg/dL 0.0-1.2 code = 1974-2) Alkaline phosphatase 66 See_Comment [Autom ated (test code = 6768-6) message ] The system which generated this result transmitted reference range : 44 - 121 IU/L. The reference range was not used to interpr et this result as normal/abnormal . AST (test code = 30 See_Comment [Automated 1920-01) message] The system which generated this result transmitted reference range : 0 - 40 IU/L. Th e reference range was not used to interpret this result as normal/abnormal . ALT (test code = 28 See_Comment [Automated 7562-6) message] The system which generated this result transmitted reference range : 0 - 32 IU/L. Th e reference range was not used to interpret this result as normal/abnormal . VALERIANO (test code = VALERIANO) Performed at: [address] [place] [address] [id number] Director: Liborio Santacruz MD, Phone: [phone] Lab Interpretation Abnormal (test code = 70233-4) [facility] [id number] 20:11:00 Test Item Value Reference Range Interpretation Comments Hemoglobin A1C (test 6.2 % 4.8-5.6 H Predia betes: code = 4548-4) 5.7 - 6.4 Diabetes: >6.4 Glycemic control for adults with diabetes: <7.0 VALERIANO (test code = VALERIANO) Performed at: [address] [place] [address] [id number] Director: Liborio Santacruz MD, Phone: [phone] Lab Interpretation Abnormal (test code = 65228-0) [facility] with platelet and [id number] 20:11:00 Test Item Value Reference Range Interpretation Comments WBC (test code = 4.6 See_Comment [Automated 0415-2) message] The system which generated this result transmit fatoumata reference range : 3.4 - 10.8 x10E3/uL. The reference range was not used to interpret this result as normal/abnormal . RBC (test code = 4.57 See_Comment [Automated 406-8) message] The system which generated this result transmit fatoumata reference range : 3.77 - 5.28 x10E6/uL. The reference range was not used to interpret this result as normal/abnormal . HGB (test code = 13.4 g/dL 11.1-15.9 718-7) HCT (test code = 40.4 % 34.0-46.6 4544-3) MCV (test code = 88 fL 79-97 787-2) MCH (test code = 29.3 pg 26.6-33.0 785-6) MCHC (test code = 33.2 g/dL 31.5-35.7 786-4) RDW (test code = 12.7 % 11.7-15.4 788-0) Platelet count 253 See_Comment [Automated (test code = 777-3) message] The system which generated this result transmit fatoumata reference range : 150 - 450 x10E3/uL. The reference range was not used to interpret this result as normal/abnormal . Neutrophils (test 43 % Not Estab. code = 770-8) Lymphocytes (test 39 % Not Estab. code = 736-9) Monocytes (test 13 % Not Estab. code = 5905-5) Eosinophils (test 4 % Not Estab. code = 713-8) Basophils (test 1 % Not Estab. code = 706-2) Neutrophils, 2.0 See_Comment [Automated absolute (test code message] The = 751-8) system which generated this result transmit fatoumata reference range : 1.4 - 7.0 x10E3/uL. The reference range was not used to interpret this result as normal/abnormal . Lymphocytes, 1.8 See_Comment [Automated absolute (test code message] The = 731-0) system which generated this result transmit fatoumata reference range : 0.7 - 3.1 x10E3/uL. The reference range was not used to interpret this result as normal/abnormal . Monocytes, absolute 0.6 See_Comment [Automa fatoumata (test code = 742-7) message] The system which generated this result transmit fatoumata reference range : 0.1 - 0.9 x10E3/uL. The reference range was not used to interpret this result as normal/abnormal . Eosinophils, 0.2 See_Comment [Automated absolute (test code message] The = 141-2) system which generated this result transmit fatoumata reference range : 0.0 - 0.4 x10E3/uL. The reference range was not used to interpret this result as normal/abnormal . Basophils, absolute 0.0 See_Comment [Automa fatoumata (test code = 704-7) message] The system which generated this result transmit fatoumata reference range : 0.0 - 0.2 x10E3/uL. The reference range was not used to interpret this result as normal/abnormal . Immature 0 % Not Estab. granulocytes (test code = 93655-8) Immature 0.0 See_Comment [Automated granulocytes, message] The absolute (test code system w [facility] = 82145-0) generated this result transmit fatoumata reference range : 0.0 - 0.1 x10E3/uL. The reference range was not used to interpret this result as normal/abnormal . VALERIANO (test code = Performed at: 01 VALERIANO) - [facility] [id number] [place], [place] [id number] Director: Liborio Santacruz MD, Phone: [phone] [facility] metabolic [id number] 08:07:00 Test Item Value Reference Range Interpretation Comments Glucose (test code = 104 mg/dL 70-99 H 2345-7) BUN (test code = 16 mg/dL 6-24 3094-0) Creatinine (test code 0.92 mg/dL 0.57-1.00 = 2160-0) eGFR (test code = 72 mL/min/1.73 See_Comment [Automa fatoumata 8257) message] The system which generated this result transmitted reference range : >=59. The reference range was not used to interpret this result as normal/abnormal . BUN/creatinine ratio 9-23 (test code = 3097-3) Sodium (test code = 142 mmol/L 699-000 7748-2) Potassium (test code 4.4 mmol/L 3.5-5.2 = 2823-3) Chloride (test code = 103 mmol/L 96-106 2075-0) CO2 (test code = 23 mmol/L 20-29 8-9) Calcium (test code = 9.3 mg/dL 8.7-10.2 45757-4) Protein (test code = 7.5 g/dL 6.0-8.5 2885-2) Albumin, S (test code 4.2 g/dL 3.8-4.9 = 1751-7) Globulin, total (test 3.3 g/dL 1.5-4.5 code = 81266-2) Albumin/globulin 1.2-2.2 ratio (test code = 1759-0) Total bilirubin (test 0.3 mg/dL 0.0-1.2 code = 1975-2) Alkaline phosphatase See_Comment [Autom ated (test code = 6768-6) message ] The system which generated this result transmitted reference range : 44 - 121 IU/L. The reference range was not used to interpr et this result as normal/abnormal . AST (test code = See_Comment [Automated 192-8) message] The system which generated this result transmitted reference range : 0 - 40 IU/L. Th e reference range was not used to interpret this result as normal/abnormal . ALT (test code = See_Comment [Automated 174-6) message] The system which generated this result transmitted reference range : 0 - 32 IU/L. Th e reference range was not used to interpret this result as normal/abnormal . VALERIANO (test code = VALERIANO) Performed at: [facility] [id number] Director: Liborio Santacruz MD, Phone: [phone] Lab Interpretation Abnormal (test code = 89160-9) [facility] [id number] 08:07:00 Test Item Value Reference Range Interpretation Comments Cholesterol (test 225 mg/dL 100-199 H code = 3-3) Triglycerides (test 90 mg/dL 0-149 code = 2571-8) HDL cholesterol (test 41 mg/dL See_Comment [Auto mated code = 2085-02) message] The system which generated this result transmitted reference range : >=39. The reference range was not used to interpret this result as normal/abnormal . VLDL cholesterol mikael 16 mg/dL 5-40 (test code = 18189-7) LDL Chol Calc ([facility]) 168 mg/dL 0-99 H (test code = 75800-5) Non-HDL cholesterol 184 mg/dL 0-129 H (test code = 77652-1) VALERIANO (test code = VALERIANO) Performed at: [facility] [id number] Director: Liborio Santacruz MD, Phone: [phone] Lab Interpretation Abnormal (test code = 00167-9) [facility] [id number] 08:07:00 Test Item Value Reference Range Interpretation Comments Cholesterol (test code = 225 mg/dL 100-199 H 3-3) Triglycerides (test code 90 mg/dL 0-149 = 2571-8) HDL cholesterol (test 41 mg/dL >=39 code = 2085-9) VLDL cholesterol mikael 16 mg/dL 5-40 (test code = 77249-4) LDL Chol Calc ([facility]) (test 168 mg/dL 0-99 H code = 35582-7) Non-HDL cholesterol (test 184 mg/dL 0-129 H code = 35275-7) VALERIANO (test code = VALERIANO) Performed at: - [facility] [address] [id number] Director: Liborio Santacruz MD, Phone: [phone] Lab Interpretation (test Abnormal code = 02869-4) [facility] reflex to [id number] 11:09:00 Test Item Value Reference Range Interpretation Comments TSH (test code See_Comment [Automated m essage] = 67052-7) The system [employer] generated this result transmit fatoumata reference range : 0.450 - 4.500 uIU/mL. The reference range was not used to interpret this result as normal/abnormal . VALERIANO (test code Performed at: - = VALERIANO) [facility] [address] [id number] Director: Liborio Santacruz MD, Phone: [phone] [facility] [id number] 20:29:23 Test Item Value Reference Range Interpretation Comments Case number (test code = [id number]) Surgical pathology See link below for report (test code = PDF Lab Report [id number]) Result status (test code This is Final Report = [id number]) for [id number] [facility] RNA [Presence] in Respiratory specimen by ISABEL with probe [id number] 22:20:47 Test Item Value Reference Range Interpretation Comments SARS-CoV-2 (COVID-19) RNA Not detected Not-Detected [Presence] in Respiratory specimen by ISABEL with probe detection (test code = 12117-1) Whether patient is employed in a healthcare setting (test code = 60192-9) Whether the patient has symptoms related to condition of interest (test code = 35826-6) Patient was hospitalized because of this condition (test code = 09773-2) Whether the patient was admitted to intensive care unit (ICU) for condition of interest (test code = 65740-2) Whether patient resides in a congregate care setting (test code = 53442-4) [facility]
[2023-04-17] MEDS ORDERED: ACETAMINOPHEN 500 MG TAB ONE (21:18)
[2023-04-17] MEDS ORDERED: ONDANSETRON 4 MG/2 ML VIAL ONE (21:19)
[2023-04-17] MEDS ORDERED: KETOROLAC 30 MG/ML INJ ONE (21:19)
[2023-04-17] MEDS ORDERED: NA CHLORIDE 0.9% 1,000 ML ONE (21:19)
[2023-04-17] MEDS ORDERED: MORPHINE 4 MG/ML SYR ONE (21:19)
[2023-04-17 21:43] LABS: Absolute Lymphocytes (CBC) 0.9 K/uL (0.7-4.9); Hematocrit 39.6 % (36.0-45.0); Lymphocytes % 12.1 % (15.3-44.8); MCV 86.6 fL (80-100); MPV 8.2 fL (7.6-11.3); Platelets 193 thou/uL (152-406); RBC Red Blood Cell Count 4.57 M/uL (3.86-4.86)
[2023-04-17 21:53] LABS: Albumin 3.5 g/dL (3.4-5.0); Bilirubin Total 0.6 mg/dL (0.2-1.0)
[2023-04-18 01:11] LABS: Urine Bacteria <20 /HPF (<20); Urine Bilirubin NEGATIVE (Negative); Urine Blood Negative (Negative); Urine Clarity Extremely Turbid (Clear); Urine Color Yellow (Yellow); Urine Glucose NEGATIVE (Negative); Urine Mucus 2+ /HPF (None Seen); Urine Protein 1+ (Negative); Urine RBC <5 /HPF (None Seen); Urine Urobilinogen 1+ (Normal)
[2023-04-18] MEDS ORDERED: IBUPROFEN 400 MG TAB ONE (01:52)
[2023-04-18] MEDS ORDERED: metroNIDAZOLE 500 MG TABLET ONE (01:52)
[2023-04-18] MEDS ORDERED: PROMETHAZINE 25 MG TABLET ONE (01:52)
[2023-04-18] MEDS ORDERED: CEFTRIAXONE 1000 MG/VIAL ONE (01:52)
[2023-04-18] MEDS ORDERED: ACETAMINOPHEN 500 MG TAB ONE (01:52)
[2023-04-18] MEDS ORDERED: NA CHLORIDE 0.9% 50 ML ONE (01:53)
--- NOTE | 2023-04-18 02:29 | EDPHYS ---
Physician Documentation [facility] Name: Guadalupe Chapin Age: 58 yrs Sex: Female : 1965 Arrival Date: 04/17/2023 Time: 20:33 Bed 19 Private MD: ED Physician Bin Todd HPI: 04/17 20:36 This 58 yrs old Black Female presents to ER via Unassigned with complaints of Flu sp4 Symptoms. 20:37 PMH - Historical: Allergies: No Known Allergies; PMHx: Hypertension; Rheumatoid sp4 Arthritis; . 20:48 58-year-old female presents with acute onset of body aches starting 2 days ago sp4 associated with cough, shaking chills, and nausea also 1 episode of diarrhea. Patient denied any medical allergies.. Patient reported associated sore throat. Historical: - Allergies: 20:41 No Known Allergies; ap3 - PMHx: 20:41 Hypertension; Rheumatoid Arthritis; ap3 - Immunization history:: Client reports receiving the 2nd dose of the Covid vaccine. - Social history:: Smoking status: Patient denies any tobacco usage or history of. - Family history:: not pertinent. ROS: 20:48 Constitutional: Positive fever, chills positive shakes positive sore throat positive sp4 body aches positive for feeling unwell 20:48 All other systems are negative, Exam: 20:48 Constitutional: This is a well developed, well nourished patient who is awake, alert, sp4 patient is febrile on arrival, mild to moderate distress secondary to fever and shaking chills. Head/Face: Normocephalic, atraumatic. Eyes: Pupils equal round and reactive to light, extra-ocular motions intact. Lids and lashes normal. Conjunctiva and sclera are not injected. Cornea within normal limits. Periorbital areas with no swelling, redness, or edema. ENT: Nares patent. No nasal discharge, no septal abnormalities noted. Tympanic membranes are normal and external auditory canals are clear. Oropharynx diffuse generalized redness, bilateral tonsillar erythema and swelling, no signs of exudates indicative of bacterial tonsillitis Neck: Trachea midline, no thyromegaly or masses palpated, and no cervical lymphadenopathy. Supple, full range of motion without nuchal rigidity, or vertebral point tenderness. Chest/axilla: Normal chest wall appearance and motion. Nontender with no deformity. No lesions are appreciated. Cardiovascular: Regular rate and rhythm with a normal S1 and S2. No gallops, murmurs, or rubs. Normal PMI, no JVD. No pulse deficits. Respiratory: Lungs have equal breath sounds bilaterally, clear to auscultation and percussion. No rales, rhonchi or wheezes noted. No increased work of breathing, no retractions or nasal flaring. Abdomen/GI: Soft, non-tender, with normal bowel sounds. No distension or tympany. No guarding or rebound. No evidence of tenderness throughout. Back: No spinal tenderness. No costovertebral tenderness. Skin: Warm, dry with normal turgor. Normal color with no rashes, no lesions, and no evidence of cellulitis. MS/ Extremity: Pulses equal, no cyanosis. Neurovascular intact. Full, normal range of motion. Neuro: Awake and alert, GCS 15, oriented to person, place, time, and situation. Cranial nerves II-XII grossly intact. Motor strength 5/5 in all extremities. Sensory grossly intact. Psych: Awake, alert, with orientation to person, place and time. Behavior, mood, and affect are within normal limits Vital Signs: 20:39 Pulse 109; Resp 19; Temp 100.7; Pulse Ox 97% ; Pain 03/28; ap3 20:39 BP 158 / 82; ap3 21:31 BP 161 / 81; Pulse 97; Resp 19; Temp 101(O); Pulse Ox 97% ; nw1 21:57 BP 139 / 73; Pulse 96; Resp 16; Temp 99.6; Pulse Ox 95% on R/A; nw1 22:35 BP 122 / 63; Pulse 84; Resp 16; Temp 99.3(O); Pulse Ox 95% on R/A; nw1 23:37 BP 127 / 62; Pulse 81; Resp 16; Pulse Ox 95% on R/A; nw04/18 00:28 BP 112 / 52; Pulse 76; Resp 16; Temp 98.8(O); Pulse Ox 96% ; nw1 02:27 BP 136 / 70; Pulse 76; Resp 15; Pulse Ox 95% on R/A; nw04/17 20:39 Pain Scale: Adult ap3 Melanie Coma Score: 04/17 21:31 Eye Response: spontaneous(4). Motor Response: obeys commands(6). Verbal Response: nw1 oriented(5). Total: 15. MDM: 21:26 Patient medically screened. sp4 23:05 Differential Diagnosis altered mental status, sepsis, flu. Data reviewed: vital signs, sp4 nurses notes, old medical records, lab test result(s), Flu: negative radiologic studies, plain films. Consideration of Admission/Observation Escalation of care including admission/observation considered. 04/18 01:02 ED course: Chest X ray - CLINICAL HISTORY:58 years Female, CHEST PAIN Comparison: Chest 4 radiograph dated 05/17/2022 FINDINGS: No focal lung consolidation. No pleural effusion. No pneumothorax. Cardiomediastinal silhouette is within normal limits. No acute osseous abnormality. IMPRESSION: No acute cardiopulmonary disease.. 04/17 20:37 Order name: Influenza Screen (a \T\ B); Complete Time: 22:30 sp4 04/17 20:42 Order name: CBC with Diff; Complete Time: 21:50 sp4 04/17 20:42 Order name: CMP; Complete Time: 22:30 sp4 04/17 20:42 Order name: Lipase; Complete Time: 22:30 sp4 04/17 20:42 Order name: CRP; Complete Time: 22:30 sp4 04/17 21:39 Order name: SARS-COV-2 RT PCR; Complete Time: 22:30 EDAK 04/17 22:31 Order name: Urinalysis W/Microscopic; Complete Time: 01:20 sp4 04/18 01:15 Order name: Urine Culture EDAK 04/17 22:31 Order name: Chest Single View XRAY sp4 04/17 20:42 Order name: IV Saline Lock; Complete Time: 21:29 sp4 04/17 20:42 Order name: Labs collected and sent; Complete Time: 21:29 sp4 Administered Medications: 04/17 21:28 Drug: NS 0.9% IV 1000 ml IV at 1 bolus Per protocol; 1000 mL bolus Route: IV; Rate: 1 nw1 bolus; Site: left antecubital; 04/18 00:06 Follow up: IV Status: Completed infusion nw1 00:06 Follow up: Response: No adverse reaction nw1 00:28 Follow up: Response: No adverse reaction; IV Status: Completed infusion nw1 04/17 21:28 Drug: Ondansetron IVP 4 mg IVP once; over 2 minutes Route: IVP; Site: left antecubital; nw1 04/18 02:51 Follow up: Response: No adverse reaction lg3 04/17 21:29 Drug: TORadol - Ketorolac IVP 15 mg IVP once Route: IVP; Site: left antecubital; nw1 04/18 02:52 Follow up: Response: No adverse reaction lg3 04/17 21:29 Drug: morphine IVP or IV 4 mg IVP once over 4 mins Route: IVP; Infused Over: 4 mins; nw1 Site: left antecubital; 04/18 02:52 Follow up: Response: No adverse reaction lg3 04/17 21:29 Drug: Acetaminophen PO 1000 mg PO once Route: PO; nw1 23:36 Follow up: Response: No adverse reaction; Temperature is decreased nw1 04/18 01:52 Drug: Ibuprofen PO 800 mg PO once Route: PO; nw 02:51 Follow up: Response: No adverse reaction; Marked relief of symptoms lg3 01:52 Drug: Promethazine PO 25 mg PO once Route: PO; nw1 02:51 Follow up: Response: No adverse reaction; Marked relief of symptoms lg3 01:52 Drug: Rocephin - Rocephin (cefTRIAXone) IVPB 1 grams IVPB once over 30 mins; (mix in 50 nw1 mL NS) Route: IVPB; Infused Over: 30 mins; Site: left antecubital; 01:52 Drug: metroNIDAZOLE PO 500 mg PO once Route: PO; nw1 02:51 Follow up: Response: No adverse reaction lg3 01:53 Drug: Acetaminophen PO 1000 mg PO once Route: PO; nw1 02:51 Follow up: Response: No adverse reaction; Marked relief of symptoms lg3 Disposition Summary: 04/18/23 02:29 Discharge Ordered Problem: new sp4 Symptoms: have improved sp4 Condition: Stable sp4 Diagnosis - UTI/ Urinary tract infection, site not specified sp4 - Viral infection, unspecified sp4 - Acute viral syndrome, acute body aches sp4 Followup: sp4 - With: Private Physician - When: 7 - 10 days - Reason: Recheck today's complaints Discharge Instructions: - Discharge Summary Sheet sp4 - Urinary Tract Infection, Adult sp4 - Viral Illness, Adult sp4 Forms: - Patient Portal Instructions sp4 Prescriptions: - Cephalexin 500 mg Oral Capsule - take 1 capsule ORAL route every 12 hours for 10 days; 20 capsule; Refills: 0, sp4 Product Selection Permitted - Ibuprofen 800 mg Oral Tablet - take 1 tablet ORAL route every 8 hours As needed take with food; 30 tablet; sp4 Refills: 0, Product Selection Permitted - promethazine 25 mg Oral tablet - take 1 tablet ORAL route every 6 hours As needed PRN nausea; 30 tablet; sp4 Refills: 0, Product Selection Permitted Signatures: Dispatcher [employer] EDConsuelo Morel, RN RN ap3 Bin Todd MD MD sp4 Sherry Dyer RN RN nw1 Corina Claros RN lg3 Corrections: (The following items were deleted from the chart) 04/17 21:39 20:37 SARS-COV-2 Antigen Rapid+I.LAB.BRZ ordered. EDAK EDMS
--- NOTE | 2023-04-18 02:29 | ER ---
Nurse's Notes [facility] Name: Guadalupe Chapin Age: 58 yrs Sex: Female : 1965 Arrival Date: 04/17/2023 Time: 20:33 Bed 19 Private MD: Diagnosis: UTI/ Urinary tract infection, site not specified;Viral infection, unspecified;Acute viral syndrome, acute body aches Presentation: 04/17 20:39 Chief complaint: Patient states: she has been having body aches, fevers and fatigue ap3 since Monday04/14/2023. Coronavirus screen: At this time, the client does not indicate any symptoms associated with coronavirus-19. Ebola Screen: No symptoms or risks identified at this time. Initial Sepsis Screen: Does the patient have a suspected source of infection? No. Patient's initial sepsis screen is negative. Initial Sepsis Screen: Does the patient meet any 2 criteria? HR > 90 bpm. No. Patient's initial sepsis screen is negative. Risk Assessment: Do you want to hurt yourself or someone else? Patient reports no desire to harm self or others. Onset of symptoms was April 14, 2023. 20:39 Method Of Arrival: Wheelchair ap3 20:39 Acuity: DEVIN 3 ap3 Triage Assessment: 20:41 General: Appears ill, Behavior is cooperative, appropriate for age. General: Reports ap3 chills for fever for feeling ill for fatigue for. Pain: Complains of pain in generalized body aches. Neuro: Level of Consciousness is awake, alert, obeys commands, Oriented to person, place, time, situation. Cardiovascular: Patient's skin is warm and dry. Respiratory: Airway is patent Respiratory effort is even, unlabored, Respiratory pattern is regular, symmetrical. Historical: - Allergies: 20:41 No Known Allergies; ap3 - PMHx: 20:41 Hypertension; Rheumatoid Arthritis; ap3 - Immunization history:: Client reports receiving the 2nd dose of the Covid vaccine. - Social history:: Smoking status: Patient denies any tobacco usage or history of. - Family history:: not pertinent. Screenin:42 Abuse screen: Denies threats or abuse. Nutritional screening: No deficits noted. ap3 Tuberculosis screening: No symptoms or risk factors identified. 21:31 [facility] ED Fall Risk Assessment (Adult) History of falling in the last 3 months, nw1 including since admission No falls in past 3 months (0 pts) Confusion or Disorientation No (0 pts) Intoxicated or Sedated No (0 pts) Impaired Gait No (0 pts) Mobility Assist Device Used No (0 pt) Altered Elimination No (0 pt) Score/Fall Risk Level 0 - 2 = Low Risk Oriented to surroundings, Maintained a safe environment, Educated pt \T\ family on fall prevention, incl call for assistance when getting out of bed, Assessed \T\ reinforced patient's understanding of fall precautions, Provided non-skid footwear, Hourly rounding (assess needs \T\ fall precautionary measures) done, Used ambulatory aids as needed (educated on \T\ assisted with). Assessment: 21:24 General: Appears uncomfortable, Behavior is cooperative, appropriate for age, anxious, nw1 restless. Pain: Complains of pain in generalized Pain currently is 6 out of 10 on a pain scale. Alleviated by medications, rest, relaxation. 21:24 Neuro: No deficits noted. Cardiovascular: Capillary refill < 3 seconds Rhythm is sinus nw1 rhythm. Respiratory: Reports cough that is productive, persistent Airway is patent Respiratory effort is even, unlabored, Respiratory pattern is regular, symmetrical. GI: Reports nausea, vomiting. Musculoskeletal: Reports weakness in generalized. 04/18 02:51 Reassessment: Patient appears in no apparent distress at this time. Patient and/or lg3 family updated on plan of care and expected duration. Pain level reassessed. Patient is alert, oriented x 3, equal unlabored respirations, skin warm/dry/pink. Patient states feeling better. Patient states symptoms have improved. Vital Signs: 04/17 20:39 Pulse 109; Resp 19; Temp 100.7; Pulse Ox 97% ; Pain /10; ap3 20:39 BP 158 / 82; ap3 21:31 BP 161 / 81; Pulse 97; Resp 19; Temp 101(O); Pulse Ox 97% ; nw1 21:57 BP 139 / 73; Pulse 96; Resp 16; Temp 99.6; Pulse Ox 95% on R/A; nw1 22:35 BP 122 / 63; Pulse 84; Resp 16; Temp 99.3(O); Pulse Ox 95% on R/A; nw1 23:37 BP 127 / 62; Pulse 81; Resp 16; Pulse Ox 95% on R/A; nw04/18 00:28 BP 112 / 52; Pulse 76; Resp 16; Temp 98.8(O); Pulse Ox 96% ; nw1 02:27 BP 136 / 70; Pulse 76; Resp 15; Pulse Ox 95% on R/A; nw1 04/17 20:39 Pain Scale: Adult ap3 [place] Coma Score: 04/17 21:31 Eye Response: spontaneous(4). Motor Response: obeys commands(6). Verbal Response: nw1 oriented(5). Total: 15. ED Course: 20:36 Patient arrived in ED. mr 20:36 Bin Todd MD is Attending Physician. sp4 20:40 Triage completed. ap3 20:42 Arm band placed on right wrist. ap3 20:52 Sherry Dyer, SAY is Primary Nurse. nw1 21:21 No provider procedures requiring assistance completed. Inserted saline lock: 20 gauge nw1 in left antecubital area, using aseptic technique. Blood collected. 21:29 CBC with Diff Sent. nw 21:29 CMP Sent. nw1 21:29 Lipase Sent. nw1 21:29 Influenza Screen (a \T\ B) Sent. nw1 21:29 CRP Sent. nw1 21:31 Patient has correct armband on for positive identification. Placed in gown. Bed in low nw1 position. Call light in reach. Side rails up X2. Adult w/ patient. Provided Education on: POC. Client placed on continuous cardiac and pulse oximetry monitoring. NIBP monitoring applied. Door closed. Noise minimized. Lights dimmed. Verbal reassurance given. 22:48 Chest Single View XRAY In Process Unspecified. EDMS 23:36 Urinalysis W/Microscopic Sent. nw04/18 01:18 Urine Culture Sent. nw1 02:52 IV discontinued, intact, bleeding controlled, No redness/swelling at site. Pressure lg3 dressing applied. Administered Medications: 04/17 21:28 Drug: NS 0.9% IV 1000 ml IV at 1 bolus Per protocol; 1000 mL bolus Route: IV; Rate: 1 nw1 bolus; Site: left antecubital; 04/18 00:06 Follow up: IV Status: Completed infusion nw 00:06 Follow up: Response: No adverse reaction 00:28 Follow up: Response: No adverse reaction; IV Status: Completed infusion nw1 04/17 21:28 Drug: Ondansetron IVP 4 mg IVP once; over 2 minutes Route: IVP; Site: left antecubital; nw1 04/18 02:51 Follow up: Response: No adverse reaction lg3 04/17 21:29 Drug: TORadol - Ketorolac IVP 15 mg IVP once Route: IVP; Site: left antecubital; nw1 04/18 02:52 Follow up: Response: No adverse reaction lg3 04/17 21:29 Drug: morphine IVP or IV 4 mg IVP once over 4 mins Route: IVP; Infused Over: 4 mins; nw1 Site: left antecubital; 04/18 02:52 Follow up: Response: No adverse reaction lg3 04/17 21:29 Drug: Acetaminophen PO 1000 mg PO once Route: PO; nw1 23:36 Follow up: Response: No adverse reaction; Temperature is decreased nw1 04/18 01:52 Drug: Ibuprofen PO 800 mg PO once Route: PO; nw1 02:51 Follow up: Response: No adverse reaction; Marked relief of symptoms lg3 01:52 Drug: Promethazine PO 25 mg PO once Route: PO; nw1 02:51 Follow up: Response: No adverse reaction; Marked relief of symptoms lg3 01:52 Drug: Rocephin - Rocephin (cefTRIAXone) IVPB 1 grams IVPB once over 30 mins; (mix in 50 nw1 mL NS) Route: IVPB; Infused Over: 30 mins; Site: left antecubital; 01:52 Drug: metroNIDAZOLE PO 500 mg PO once Route: PO; nw1 02:51 Follow up: Response: No adverse reaction lg3 01:53 Drug: Acetaminophen PO 1000 mg PO once Route: PO; nw1 02:51 Follow up: Response: No adverse reaction; Marked relief of symptoms lg3 Medication: 04/17 21:31 VIS not applicable for this client. nw1 Outcome: 04/18 02:29 Discharge ordered by MD. gann 02:52 Discharged to home ambulatory, lg3 02:52 Condition: stable 02:52 Discharge instructions given to patient, Instructed on discharge instructions, follow up and referral plans. medication usage, Demonstrated understanding of instructions, follow-up care, medications, Prescriptions given X 3, 02:52 Patient left the ED. lg3 Addendum: 04/21/2023 07:51 Addendum: Culture Results: Positive urine culture. No further action required. Bacteria e b sensitive to prescribed antibiotic. Signatures: Dispatcher [employer] EDMS Tamara Graves, Reg Reg mr GarrettConsuelo, RN RN ap3 Susie Guthrie Lacie RN RN lg3 Bin Todd MD MD sp4 Sherry Dyer RN RN nw1 Corrections: (The following items were deleted from the chart) 04/17 21:39 21:29 SARS-COV-2 Antigen Rapid+I.LAB.BRZ drawn and sent. nw1 [facility]
[2023-04-18 03:36] VITALS: TEMP 98.8
[2023-04-18 03:37] VITALS: BP 136/70; O2SAT 95
--- NOTE | 2023-04-18 15:21 | RAD REPORT ---
EXAM DESCRIPTION: RAD - Chest Single View - 04/17/2023 10:46 pm CLINICAL HISTORY: 1 years Female, CHEST PAIN COMPARISON: Chest radiograph dated 05/17/2022 FINDINGS: No focal lung consolidation. No pleural effusion. No pneumothorax. Cardiomediastinal silhouette is within normal limits. No acute osseous abnormality. IMPRESSION: No acute cardiopulmonary disease. Electronically signed by: Trsiten Schrader DO 04/17/2023 10:54 PM CDT Due to temporary technical issues with the PACS/Fluency reporting system, reports are being signed by the in house radiologists without review as a courtesy to insure prompt reporting. The interpreting radiologist is fully responsible for the content of the report.
== END 2023-04-18 02:52 | disposition home or self-care (01) ==
LOC: ER 20:33
DX: B34.9 Viral infection, unspecified (principal); N39.0 Urinary tract infection, site not specified; R52 Pain, unspecified; Z11.52 Encounter for screening for COVID-19; I10 Essential (primary) hypertension
CPT/HCPCS: 96361; 87088; 85025; 81001; 87086; 36415; 87077; 87186; 83690; 80053; 87635; 86140; 87804 ×2; 71045; 96375; 96374; 99284; Q0169; J2405; J7030; J0696